=== PATIENT | female | born 1970 | race Caucasian/White ===

== ENCOUNTER 2018-05-16 18:35 | Emergency (ER) | payer SELFPAY ==
[~2018-05-16] VITALS: Ht 162.6 cm; Wt 111.6 kg
[2018-05-16 20:06] LABS: BILIRUBIN,URINE NEGATIVE (NEG); CLARITY,URINE CLEAR; COLOR,URINE YELLOW; NITRITE,URINE NEGATIVE (NEG); PROTEIN,URINE NEGATIVE (NEG-TRACE); UROBILINOGEN,URINE 0.2 mg/dL (0.2 mg/dL)
[2018-05-16 20:13] LABS: BACTERIA,URINE MANY /HPF (0-FEW); RBC,URINE 0 /HPF (0-2); SQUAMOUS EPITHELIAL CELL,UR FEW /LPF; WBC,URINE OCC /HPF (0-4)
--- NOTE | 2018-05-16 20:25 | PHYS DOC ---
Past Medical History Past Medical History: Cancer, Depression, Diabetes-Type II, Fibromyalgia, GERD , Kidney Stone, Uterine Fibroids, Other Additional Past Medical Histor: HYPERLIPIDEMIA,HSV2,RENAL CELL CANCER, SLEEP APNEA, CRONIC FATGUE, Additional Past Surgical Histo: PARTIAL KEDNEY REMOVAL.RIGHT LEG BIOPSY, BILATERAL SHOULDER.KIDNEY STONE Alcohol Use: None Drug Use: None Adult General Chief Complaint Chief Complaint: ABDOMINAL PAIN HPI HPI 48 year old female presents to ER with complaints of right lower abdominal pain since Tuesday area patient reports she was seen at [facility] today and was instructed to come to ER for further evaluation for abd CT. Pt reports she has had intermittent nausea denying vomiting episodes. She denies fever/chills, urinary sxs, or bloody stools. She reports she has had decreased appetite over past couple of days; however was able to eat chicken sandwich today. She reports she had been on progesterone type control up until 02/08/18 and since has stopped taking. She reports having 1 menstr. cycle during that month. She denies any vaginal discharge or abnorm. vag. bleeding. She denies pelvic pressure/pain. Review of Systems Review of Systems Constitutional: Denies fever or chills [] Eyes: Denies change in visual acuity, redness, or eye pain [] HENT: Denies nasal congestion or sore throat [] Respiratory: Denies cough or shortness of breath [] Cardiovascular: Denies CP/palpitations GI: Denies vomiting. Reports rt lower abd pain with intermittent nausea : Denies dysuria or hematuria [] Musculoskeletal: Denies back pain or joint pain [] Integument: Denies swelling, rash or skin lesions [] Neurologic: Denies headache, focal weakness or sensory changes [] All other systems were reviewed and found to be within normal limits, except as documented in this note. Current Medications Current Medications Current Medications Medications (Trade) Dose Ordered Sig/William Start Time Stop Time Status Last Admin Dose Admin Fentanyl Citrate (Fentanyl 2ml Vial) 25 mcg 1X ONCE 05/16/18 20:15 05/16/18 20:19 DC 05/16/18 20:57 25 MCG Iohexol (Omnipaque 300 Mg/ml) 60 ml 1X ONCE 05/16/18 21:30 05/16/18 21:31 DC 05/16/18 21:35 60 ML Ketorolac Tromethamine (Toradol 15mg Vial) 15 mg 1X ONCE 05/16/18 23:00 05/16/18 23:01 Sodium Chloride 1,000 ml @ 1,000 mls/hr 1X ONCE 05/16/18 20:15 05/16/18 21:14 DC 05/16/18 20:58 1,000 MLS/HR Allergies Allergies Allergies Coded Allergies Type Severity Reaction Last Updated Verified Penicillins Allergy Unknown 05/16/18 Yes ibuprofen Allergy Unknown 05/16/18 Yes Physical Exam Physical Exam Constitutional: Well developed, well nourished, no acute distress, non-toxic appearance. [] HENT: Normocephalic, atraumatic, bilateral ears normal, mucous membranes pink/ moist, no oral exudates, nose normal. [] Eyes: PERRLA, conjunctiva normal, no discharge. [] Neck: Normal range of motion, no tenderness, supple Cardiovascular:Heart rate regular rhythm, no murmur [] Lungs & Thorax: Bilateral breath sounds clear to auscultation. Resp. equal/ nonlabored Abdomen: Bowel sounds normal, soft, diffuse tenderness in rt side to rt lower abd- no distention/rebound tenderness, no masses, no pulsatile masses. [] Skin: Warm, dry, no erythema, no rash. [] Back: No tenderness, no CVA tenderness. [] Extremities: No tenderness, no cyanosis, no clubbing, ROM intact, no edema. [] Neurologic: Alert and oriented X 3, normal motor function, normal sensory function, no focal deficits noted. [] Psychologic: Affect normal, judgement normal, mood normal. [] Current Patient Data Vital Signs Vital Signs Date Time Temp Pulse Resp B/P (MAP) Pulse Ox O2 Delivery O2 Flow Rate FiO2 05/16/18 21:12 69 149/78 (101) 100 Room Air 05/16/18 20:57 16 05/16/18 19:13 97.7 97.7 Lab Values Laboratory Tests Test 05/16/18 19:43 05/16/18 19:56 05/16/18 20:44 Urine Collection Type Void Urine Color Yellow Urine Clarity Clear Urine pH 5.0 Urine Specific [place] 1.025 Urine Protein Negative mg/dL (NEG-TRACE) Urine Glucose (UA) Negative mg/dL (NEG) Urine Ketones (Stick) Negative mg/dL (NEG) Urine Blood Negative (NEG) Urine Nitrite Negative (NEG) Urine Bilirubin Negative (NEG) Urine Urobilinogen Dipstick 0.2 mg/dL (0.2 mg/dL) Urine Leukocyte Esterase Negative (NEG) Urine RBC 0 /HPF (0-2) Urine WBC Occ /HPF (0-4) Urine Squamous Epithelial Cells Few /LPF Urine Bacteria Many /HPF (0-FEW) Urine Mucus Marked /LPF POC Urine HCG, Qualitative Hcg negative (Negative) White Blood Count 13.8 x10^3/uL (4.0-11.0) H Red Blood Count 4.19 x10^6/uL (3.50-5.40) Hemoglobin 12.6 g/dL (12.0-15.5) Hematocrit 37.5 % (36.0-47.0) Mean Corpuscular Volume 90 fL (79-100) Mean Corpuscular Hemoglobin 30 pg (25-35) Mean Corpuscular Hemoglobin Concent 34 g/dL (31-37) Red Cell Distribution Width 13.2 % (11.5-14.5) Platelet Count 217 x10^3/uL (140-400) Neutrophils (%) (Auto) 65 % (31-73) Lymphocytes (%) (Auto) 26 % (24-48) Monocytes (%) (Auto) 6 % (0-9) Eosinophils (%) (Auto) 3 % (0-3) Basophils (%) (Auto) 1 % (0-3) Neutrophils # (Auto) 8.9 x10^3uL (1.8-7.7) H Lymphocytes # (Auto) 3.6 x10^3/uL (1.0-4.8) Monocytes # (Auto) 0.8 x10^3/uL (0.0-1.1) Eosinophils # (Auto) 0.4 x10^3/uL (0.0-0.7) Basophils # (Auto) 0.1 x10^3/uL (0.0-0.2) Sodium Level 141 mmol/L (136-145) Potassium Level 3.7 mmol/L (3.5-5.1) Chloride Level 102 mmol/L (98-107) Carbon Dioxide Level 28 mmol/L (21-32) Anion Gap 11 (6-14) Blood Urea Nitrogen 23 mg/dL (7-20) H Creatinine 1.2 mg/dL (0.6-1.0) H Estimated GFR (Cockcroft-Gault) 48.4 BUN/Creatinine Ratio 19 (6-20) Glucose Level 93 mg/dL (70-99) Calcium Level 9.3 mg/dL (8.5-10.1) Magnesium Level 1.9 mg/dL (1.8-2.4) Total Bilirubin 0.4 mg/dL (0.2-1.0) Aspartate Amino Transferase (AST) 21 U/L (15-37) Alanine Aminotransferase (ALT) 24 U/L (14-59) Alkaline Phosphatase 124 U/L (46-116) H Total Protein 7.5 g/dL (6.4-8.2) Albumin 3.4 g/dL (3.4-5.0) Albumin/Globulin Ratio 0.8 (1.0-1.7) L Lipase 125 U/L (73-393) Laboratory Tests 05/16/18 20:44 Laboratory Tests 05/16/18 20:44 EKG EKG [] Radiology/Procedures Radiology/Procedures [] Course & Med Decision Making Course & Med Decision Making Pertinent Labs and Imaging studies reviewed. (See chart for details) 2240: Discussed test results with pt and family at bedside. Pt reports having slight improvement in pain following IV fentanyl. She remains nontoxic in appearance. Discussed admission for further care/pain control and pt is preferring home discharge. Dragon Disclaimer Dragon Disclaimer This electronic medical record was generated, in whole or in part, using a voice recognition dictation system. Departure Departure Impression: Primary Impression: Kidney stone on left side Additional Impression: Abdominal pain Disposition: 01 HOME, SELF-CARE Condition: STABLE Referrals: NO PCP (PCP) HILL SEE MD urology Patient Instructions: Abdominal Pain, Kidney Stones Additional Instructions: You can take your prescribed Tramadol as directed and if pain becomes worse you are being provided prescription for Vicoprofen- avoid taking additional NSAids if taking this. You need to follow-up with urology- if symptoms worsen return to Emergency Department for re-evaluation. Scripts Hydrocodone/Ibuprofen (HYDROCODONE-IBUPROFEN 7.5-200 ) 1 Each Tablet 1 TAB PO PRN Q6HRS PRN for PAIN, #8 TAB 0 Refills Prov: TRESA HURD ENGRAVER COPPERPLATE 05/16/18 Tamsulosin Hcl (FLOMAX) 0.4 Mg Cap.er.24h 0.4 MG PO DAILY, #7 TAB 0 Refills Prov: TRESA HURD APRN 05/16/18 Problem Qualifiers TRESA HURD APRN May 16, 2018 20:25
[2018-05-16 20:55] LABS: BASO # 0.1 x10^3/uL (0.0-0.2); BASO % 1 % (0-3); EOS # 0.4 x10^3/uL (0.0-0.7); EOS % 3 % (0-3); HEMATOCRIT 37.5 % (36.0-47.0); HEMOGLOBIN 12.6 g/dL (12.0-15.5); LYMPH # 3.6 x10^3/uL (1.0-4.8); LYMPH % 26 % (24-48); MEAN CORPUSCULAR HEMOGLOBIN 30 pg (25-35); MEAN CORPUSCULAR HGB CONC 34 g/dL (31-37); MEAN CORPUSCULAR VOLUME 90 fL (79-100); MONO # 0.8 x10^3/uL (0.0-1.1); MONO % 6 % (0-9); NEUT # 8.9 x10^3uL (1.8-7.7); NEUT % 65 % (31-73); PLATELET COUNT 217 x10^3/uL (140-400); RED BLOOD COUNT 4.19 x10^6/uL (3.50-5.40); RED CELL DISTRIBUTION WIDTH 13.2 % (11.5-14.5); WHITE BLOOD COUNT 13.8 x10^3/uL (4.0-11.0)
[2018-05-16] MEDS: fentaNYL PF VIAL 100 MCG/2 ML VIAL IV ONE (20:57)
[2018-05-16] MEDS: IV NORMAL SALINE 1000ML BAG 1,000 ML IV ONE (20:58)
[2018-05-16 21:04] LABS: CALCIUM 9.3 mg/dL (8.5-10.1); CREATININE 1.2 mg/dL (0.6-1.0); GFR 48.4; POTASSIUM 3.7 mmol/L (3.5-5.1)
[2018-05-16 21:10] LABS: ALBUMIN 3.4 g/dL (3.4-5.0); ALBUMIN/GLOBULIN RATIO 0.8 (1.0-1.7); MAGNESIUM 1.9 mg/dL (1.8-2.4); TOTAL BILIRUBIN 0.4 mg/dL (0.2-1.0); TOTAL PROTEIN 7.5 g/dL (6.4-8.2)
[2018-05-16] MEDS: IOHEXOL 300 MG/ML 100ML VIAL. IV ONE (21:35)
--- NOTE | 2018-05-16 22:04 | RAD ---
PQRS Compliance statement: One or more of the following individualized dose reduction techniques were utilized for this examination: 1. Automated exposure control. 2. Adjustment of the mA and/or kV according to patient size. 3. Use of iterative reconstruction technique. Indication:RLQ pain TECHNIQUE: CT abdomen and pelvis with IV contrast with multiplanar reformats. COMPARISON: None FINDINGS: Heart is normal in size. No pericardial or pleural effusion. Clear lung bases. Liver, spleen, gallbladder, pancreas, adrenals and right kidney are within normal limits. 6 cm obstructing stone is seen in the proximal left ureter causing mild to moderate hydronephrosis and diffuse left renal edema. No free pelvic fluid or ascites. No enlarged retroperitoneal or pelvic adenopathy. No bowel obstruction. Normal appendix. Small omental fat-containing medical hernia. Urinary bladder within normal limits. Anteverted uterus. No suspicious bony lesion. IMPRESSION: Obstructing 6 mm stone in the left proximal ureter causing mild to moderate left hydronephrosis. Electronically signed by: Andrey Rodrigues DO (05/16/2018 10:01 PM) [facility]
[2018-05-16] MEDS ORDERED: TAMS0.4C97 PO (22:51)
[2018-05-16] MEDS ORDERED: HYDR-79 PO (22:53)
[2018-05-16 23:00] VITALS: BP 169/78
[2018-05-16] MEDS: KETOROLAC 15 MG/ML VIAL. IV ONE (23:05)
== END 2018-05-16 23:40 | disposition home or self-care (01) ==
LOC: ER 18:35
DX: N20.0 Calculus of kidney (principal); F32.9 Major depressive disorder, single episode, unspecified; E11.9 Type 2 diabetes mellitus without complications; K21.9 Gastro-esophageal reflux disease without esophagitis; E78.5 Hyperlipidemia, unspecified; Z88.0 Allergy status to penicillin; Z88.6 Allergy status to analgesic agent
CPT/HCPCS: 36415; 74177; 80053; 81001; 81025; 83690; 83735; 85025; 87086; 96374; 96375; 99285; J1885; J3010; J7030; Q9967; 96361

== ENCOUNTER → 2018-10-05 | Outpatient (CLI) | payer OTHER ==
[~2018-10-05] MED LIST: HYDROCODONE-IB1 EAC3 PO; TAMS0.4C97 PO
--- NOTE | 2018-10-05 13:58 | RAD ---
Ultrasound-guided right breast biopsy, postbiopsy right breast mammogram for clip localization purposes 10/05/2018 Clinical indication: Right breast mass. Comparison: Outside mammogram and ultrasound 09/06/2018 Ultrasound-guided right breast biopsy: Findings/technique: Procedure was discussed with the patient including benefits and risks included but were not limited to bleeding, infection and damage to adjacent structures. Patient wished to proceed and signed written informed consent. Patient was placed supine on the imaging table. Preprocedural imaging demonstrated an irregular hypoechoic shadowing mass at the 10:00 position. The overlying skin was marked, prepped and draped in the usual sterile fashion. A small amount of 1% lidocaine was used for local anesthesia. Under direct ultrasound guidance, a 14-gauge biopsy needle was advanced to the mass and 4 core biopsy samples were obtained and placed into formalin. The samples were sent to the pathology department for analysis. All instrumentation was removed removed. Subsequently an S-type biopsy marker introducer needle was advanced to the site of biopsy and applied with visualization on ultrasound. Again, all his mentation was removed. Patient tolerated the procedure well and went to the mammography suite for postbiopsy clip verification. Right breast mammogram: Full field digital 2-D CC and MLO views of the right breast were obtained. There is an S type biopsy marker well positioned and approximately 7 mm medial to the central aspect of the mass by mammogram. Impression: 1. Technically successful ultrasound-guided core biopsy of 10:00 position right breast mass. Pathology pending. 2. Post biopsy marker is well-positioned and approximately 7 mm medial to the central aspect of the mass on mammogram.
--- NOTE | 2018-10-10 15:09 | PATHOLOGY ---
[facility] Accession Number: [id number] . 01 Material submitted: . RT BREAST . 01 Clinical history: . Right breast mass . 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 SEE COMMENT. [facility]/10/10/2018 . 02 Comment: Sections of the right breast mass needle biopsy show foci of intermediate grade ductal carcinoma in situ of cribriform type. There are a few foci suspicious for invasive ductal carcinoma. Immunoperoxidase stains for myoepithelial cells are obtained and yield the following results: . P63 (A1): Absence of myoepithelial cells in focus suspicious for invasive ductal carcinoma. Smooth muscle myosin heavy chain (A1): Absence of myoepithelial cells in focus suspicious for invasive ductal carcinoma. P63 (A2): Absence of myoepithelial cells in foci suspicious for invasive ductal carcinoma. Smooth muscle myosin heavy chain (A2): Absence of myoepithelial cells in foci suspicious for invasive ductal carcinoma. . The morphologic and immunophenotypic findings are supportive of the diagnosis of intermediate grade ductal carcinoma in situ of cribriform type and focally invasive ductal carcinoma. The foci of invasive carcinoma measure up to a little over 1 mm in greatest dimension. The invasive carcinoma shows little tubule formation, moderate nuclear pleomorphism, and little mitotic activity. There is no lymphovascular tumor invasion. There are no tumor associated calcifications. . The case is also examined by Dr. Putnam, who concurs with the diagnosis. . An attempt will be made to obtain breast prognostic studies, although there is a limited amount of invasive carcinoma remaining in the blocks. These results will be reported separately. . (JPM:pit 10/10/2018) . Special stains performed: Immunoperoxidase for p63 on A1 and A2 and smooth muscle myosin heavy chain on A1 and A2. . 02 Electronically signed: . Lance Jo MD, Pathologist NPI- [id number] . 01 Gross description: . The specimen is received in formalin, labeled "Kylah Sharpe, right breast". Received are multiple needle cores of fibrofatty tissue measuring 1.5 x 1.0 x 0.1 cm in aggregate dimensions. The specimen is submitted entirely in cassettes A1 through A3. The cold ischemic time is 1 minute. The total formalin fixation time is 29 hours and 23 minutes. (CAA; 10/06/2018) QAC/QAC . 02 Pathologist provided ICD-10: C50.911, D05.11 . 02 CPT . 889068, F21998, A46090 Specimen Comment: A courtesy copy of this report has been sent to Specimen Comment: [phone], . Specimen Comment: Report sent to / DR CHENEY Specimen Comment: A duplicate report has been generated due to demographic updates. Performed at: 01 [facility] [address] [facility] [address], [place] [id number] MD Bill Jimenez MD Phone: [phone] Performed at: 02 [facility] [address] [place], [place] [id number] MD Lance Jo MD Phone: [phone]
== END | disposition home or self-care (01) ==
LOC: US 12:27
PROVIDERS: ATTEND Surgery
DX: C50.411 Malignant neoplasm of upper-outer quadrant of right female breast (principal); E11.9 Type 2 diabetes mellitus without complications; Z88.0 Allergy status to penicillin; Z88.6 Allergy status to analgesic agent; Z79.84 Long term (current) use of oral hypoglycemic drugs; Z85.528 Personal history of other malignant neoplasm of kidney
CPT/HCPCS: 19083; 77065; 88305; 88341; 88342; C1713; 76942

== ENCOUNTER 2018-11-20 08:21 | Inpatient (IN) | payer OTHER ==
[2018-11-20] VITALS (8 sets, daily range): BP systolic 113–142; BP diastolic 64–89
[~2018-11-20] VITALS: Ht 162.6 cm; Wt 114.9 kg
[~2018-11-20 08:21] MED LIST changes: +BUPIVAC MPF-EPI 0.5%-1:200000 30 ML VIAL. ONE; +ESTROGENS, CONJ VAGINAL CREAM 30GM TUBE. ONE; +IV RINGERS,LACTATED 1000ML 1,000 ML IV SCH; +LIDOCAINE 1% PF 2 ML VIAL. ID PRN; +METHYLENE BLUE 1% 10 ML VIAL. ONE; +MORPHINE SULFATE 2 MG/ML VIAL. IV PRN; +ONDANSETRON PF 4 MG/2 ML VIAL. IV PRN; +PROCHLORPERAZINE 10 MG/2 ML VIAL. IV PRN; +fentaNYL PF VIAL 100 MCG/2 ML VIAL IV PRN
[2018-11-20] MEDS ORDERED: TRAM50TA PO (09:01)
[2018-11-20] MEDS ORDERED: VENL150T PO (09:01)
[2018-11-20] MEDS ORDERED: METF500T16 PO (09:01)
[2018-11-20] MEDS ORDERED: CETI10TA16 PO (09:01)
[2018-11-20] MEDS ORDERED: MONT10TA9 PO (09:01)
[2018-11-20] MEDS ORDERED: GLIM1TAB2 PO (09:01)
[2018-11-20] MEDS ORDERED: GABA300C18 PO (09:01)
[2018-11-20] MEDS ORDERED: RANI150T2 PO (09:01)
[2018-11-20] MEDS ORDERED: LOVA40TA2 PO (09:01)
[2018-11-20] MEDS ORDERED: PROP80CA3 PO (09:01)
[2018-11-20 09:17] LABS: U PREG PATIENT NEGATIVE (NEG)
[2018-11-20 09:24] LABS: HEMATOCRIT 38.8 % (36.0-47.0); HEMOGLOBIN 12.5 g/dL (12.0-15.5)
--- NOTE | 2018-11-20 11:02 | RAD ---
Indication: Right breast mass needle localization. Technique: After explaining the risks and benefits of the procedure, informed consent was obtained. The skin was prepped and draped using usual sterile procedure. 1% lidocaine was used for local anesthesia. Under ultrasound guidance Kopan wire was advanced with its tip in the region of mass. In this location and the wire was deployed. The new was drawn and patient was sent for post localization mammogram. Comparison: Mammogram from 10/05/2018. Findings: Re-demonstrated is an area of architectural distortion in the upper outer quadrant of the right breast with associated biopsy marker. The hook and the reinforcement segment wire is in the region of mass/architectural distortion. The needle enters the right breast at 9-10 o'clock position. Impression: Uncomplicated needle localization of right breast upper outer quadrant mass.
--- NOTE | 2018-11-20 11:05 | HP ---
ADMIT DATE: 11/20/2018 REASON FOR ADMISSION: Symptomatic leiomyomata. HISTORY OF PRESENT ILLNESS: This is a 1, para 1, who is referred to me by [facility] for symptomatic leiomyomata. The patient has had abnormal and painful bleeding for greater than a year. The patient had ultrasound and endometrial biopsy done in my office. Ultrasound confirmed the fibroids. Then, endometrial biopsy was negative. The patient has risks, benefits, indications, alternatives, and expectations of surgery versus more conservative modalities, i.e. hormonal therapy, ablation, but secondary to the patient's concurrent breast cancer, the patient will need definitive therapy with hysterectomy with bilateral salpingo-oophorectomy. The patient was told more likely that laparoscopic-assisted vaginal hysterectomy and bilateral salpingo-oophorectomy would be the modality that would be used, but also possible open procedure could be indicated. REVIEW OF SYSTEMS: Per HPI. PAST MEDICAL HISTORY: Diabetes, kidney cancer, genital herpes, gastroesophageal reflux, allergic rhinitis, depression, migraines, obstructive sleep apnea, fibromyalgia. PAST SURGICAL HISTORY: Right kidney cancer, right shoulder surgery in 2010 and 2015, biopsy from calf, external sphincter muscle surgery in 1997, delivery in 1996. SOCIAL HISTORY: Does not smoke, drink or use any illicit drugs. FAMILY HISTORY: Positive for diabetes in brother and sister, and she has a healthy daughter. Mother had vaginal cancer. Sister had thyroid cancer. ALLERGIES: PENICILLIN, ITCHING. ACETAMINOPHEN, BURNING SENSATION. HOSPITALIZATIONS: For the right kidney cancer and childbirth. PHYSICAL EXAMINATION: VITAL SIGNS: Height 63 inches, weight is 257.6, temperature is 96.2, pulse 72, respirations 20, blood pressure 143/79, BMI was 45.63, O2 saturation was 99% on room air. HEENT: Head is normocephalic, atraumatic. Pupils equal, round, react to light. LUNGS: Clear to auscultation. BREASTS: No dominant masses appreciated. Dr. Anderson is working up abnormal lesion on the right breast. ABDOMEN: Obese. PELVIC: External genitalia appear normal. Cervix appears normal. Uterus 9-10 week size, irregular. Ultrasound consistent with fibroids. RECTAL: Deferred. EXTREMITIES: No clubbing, cyanosis or edema. IMPRESSION: Symptomatic leiomyomata with a history of breast cancer. Dr. Anderson will do the procedure prior to mine on her breast. PLAN: Laparoscopic assisted vaginal hysterectomy with bilateral salpingo-oophorectomy, possible open procedure. ALLAN YANEZ MD DR: FIDENCIO/lori JOB#: [id number] / [id number]
--- NOTE | 2018-11-20 11:05 | RAD ---
Indication: Ultrasound-guided needle localization for right breast mass. Technique: After explaining the risks and benefits of the procedure, informed consent was obtained. The skin was prepped and draped using usual sterile procedure. 1% lidocaine was used for local anesthesia. Under ultrasound guidance Kopan wire was advanced with its tip in the region of mass. In this location and the wire was deployed. The new was drawn and patient was sent for post localization mammogram. Comparison: Previous ultrasound from 10/05/2018. Findings: The hook of the wire is passed the mass with reinforcing segment lying within the mass. The needle enters the skin at 9-10 o'clock position in the right breast. Impression: Uncomplicated wire localization of right upper outer quadrant breast mass.
[2018-11-20] MEDS ORDERED: ONDANSETRON PF 4 MG/2 ML VIAL. ONE (11:10)
[2018-11-20] MEDS ORDERED: PROPOFOL 20 ML IV ONE (11:10)
[2018-11-20] MEDS ORDERED: LIDOCAINE 1% PF 5 ML VIAL. ONE (11:10)
[2018-11-20] MEDS ORDERED: MIDAZOLAM HCL/PF 2 MG/2 ML VIAL. ONE (11:10)
[2018-11-20] MEDS ORDERED: FAMOTIDINE 20 MG/2 ML VIAL ONE (11:10)
[2018-11-20] MEDS ORDERED: fentaNYL PF VIAL 100 MCG/2 ML VIAL ONE ×3 (11:10→16:07)
[2018-11-20] MEDS ORDERED: ROCURONIUM 50 MG/5 ML VIAL. ONE ×2 (11:11→15:12)
[2018-11-20] MEDS ORDERED: BUPIVAC MPF-EPI 0.5%-1:200000 30 ML VIAL. ONE (12:02)
[2018-11-20] MEDS ORDERED: LIDOCAINE WITH 8.4% SOD BICARB 3 ML DISP.SYRIN. INJ ONE (12:15)
[2018-11-20] MEDS ORDERED: ISOSULFAN BLUE 50 MG/5 ML VIAL. SQ ONE (12:21)
--- NOTE | 2018-11-20 14:39 | RAD ---
Indication: Post surgical biopsy specimen check. Technique: Single cc view of the surgical specimen with grade overlying. Comparison: The localization mammogram from the same day. Findings: The post biopsy marker and localization wire both are seen on the same specimen image. The position of the biopsy clip is at coordinates 5-B on the grid. Impression: As above.
[2018-11-20] MEDS ORDERED: ONDANSETRON PF 4 MG/2 ML VIAL. IV PRN ×3 (15:15→17:15)
[2018-11-20] MEDS ORDERED: MAG HYDROX/ALUMINUM HYD/SIMETH 30 ML ORAL.SUSP PO PRN ×2 (15:15→17:15)
[2018-11-20] MEDS ORDERED: DEXTROSE 50% 25 GM / 50ML DISP.SYRIN. IV PRN ×2 (15:15→17:15)
[2018-11-20] MEDS ORDERED: CALCIUM CARBONATE 500 MG TAB.CHEW PO PRN ×2 (15:15→17:15)
[2018-11-20] MEDS ORDERED: NALOXONE 0.4 MG/ML VIAL. IV PRN ×2 (15:15→17:15)
[2018-11-20] MEDS ORDERED: 0.9 % SODIUM CHLORIDE 10 ML DISP.SYRIN. IV PRN ×3 (15:15→17:15)
[2018-11-20] MEDS ORDERED: ZOLPIDEM 5 MG TABLET. PO PRN ×2 (15:15→17:15)
[2018-11-20] MEDS ORDERED: diphenhydrAMINE 50 MG/ML VIAL IV PRN ×2 (15:15→17:15)
[2018-11-20] MEDS ORDERED: diphenhydrAMINE HCL 25 MG CAPSULE PO PRN ×2 (15:15→17:15)
[2018-11-20] MEDS ORDERED: HYDROmorphone 2 MG/ML VIAL IV PRN ×4 (15:15→17:45)
[2018-11-20] MEDS ORDERED: NEOSTIGMINE 10 MG/10 ML VIAL. ONE (15:56)
[2018-11-20] MEDS ORDERED: hydrALAZINE 20 MG/ML VIAL. ONE (16:14)
[2018-11-20] MEDS ORDERED: METOPROLOL TARTRATE 5 MG/5 ML VIAL. IVP ONE (16:27)
[2018-11-20] MEDS ORDERED: GLYCOPYRROLATE 1 MG/5 ML VIAL. ONE (17:07)
--- NOTE | 2018-11-20 17:08 | PDOC ---
BRIEF OPERATIVE NOTE Date: Nov 20, 2018 Pre-Op Diagnosis symptomatic leiomyomata AUB Post-Op Diagnosis Same Procedure Performed LAVH converted to supercervical MIRA BSO Surgeon Prateek Pham Anesthesia Type: General Blood Loss 300cc Specimens Obtained uterus tubes and ovaries Complications none ALLAN YANEZ MD Nov 20, 2018 17:08
[2018-11-20] MEDS ORDERED: KETOROLAC 30 MG/ML INJ FOR OR. INJ ONE (17:12)
[2018-11-20] MEDS ORDERED: HYDROmorphone 12mg/30ml PCA 30 ML IV PRN (17:15)
[2018-11-20] MEDS ORDERED: DESFLURANE > 120 MINUTES IH ONE (17:15)
[2018-11-20] MEDS ORDERED: SIMETHICONE 80 MG TAB.CHEW PO PRN (17:15)
[2018-11-20] MEDS ORDERED: HYDROmorphone 2 MG/ML VIAL ONE ×2 (17:18→18:20)
[2018-11-20] MEDS: HYDROmorphone 2 MG/ML VIAL IV PRN ×7 (17:21→19:34)
--- NOTE | 2018-11-20 18:06 | OP ---
DATE OF SURGERY: 11/20/2018 PREOPERATIVE DIAGNOSES: Symptomatic leiomyomata, abnormal uterine bleeding. POSTOPERATIVE DIAGNOSES: Symptomatic leiomyomata, abnormal uterine bleeding. PROCEDURE: Laparoscopic assisted vaginal hysterectomy, converted to abdominal supracervical hysterectomy with BSO. SURGEON: Heriberto Chandra M.D. SOFTWARE INSTALLER: Dr. Benny Pham. ANESTHESIA: General. ESTIMATED BLOOD LOSS: 300 mL. FLUIDS: Crystalloid. SPECIMENS: Uterus, supracervical, bilateral tubes and oviducts. COMPLICATIONS: None. CONDITION: Stable. DESCRIPTION OF PROCEDURE: Risks, benefits, indications, alternatives discussed in detail with the patient. The patient was brought to the OR theater, placed in the supine position for Dr. Anderson's surgery. After he was done, she was repositioned in Juvencio stirrups in the usual manner. After assuring adequate anesthesia, the patient was prepped and draped in usual sterile manner. Uterine manipulator was placed transvaginally. Attention was then turned to the anterior abdominal wall. The patient had a considerably high BMI and had to use the long trocar to try to gain access. After three times trying to gain access twice with the short trocar, once with long trocar, it was abandoned and abdominal approach was then taken. This incision was then reapproximated with a 4-0 Monocryl in interrupted fashion. The uterine manipulator was removed. A low transverse Pfannenstiel incision was made sharply with a scalpel. This was carried down through the skin and subcutaneous tissue with a scalpel and Bovie cautery. Rectus fascia was nicked in midline and extended laterally in each direction with Marrero scissors. Areas of bleeding were controlled with Bovie cautery. Upper edge of rectus fascia was both bluntly and sharply with gloved hand and Marrero scissors. The same procedure was carried out at lower edge of rectus fascia. The parietal peritoneum was entered carefully with hemostats and Metzenbaum scissors. The small bowel was ran from the cecum and as far as ligated which was probably greater than 150 cm. This is also difficult because of the patient's obesity. The area where the trocar sleeves were tried to insert was pristine, no evidence by palpation of the Veress needle or the trocar sleeves violating the rectus fascia up at the umbilicus. Jakob retractor was attempted to be placed secondary to the patient's obesity; however, this became problematic. O'Gaudencio-O'Hawkins retractor was placed. The patient was placed in Trendelenburg. The intestines were packed cephalad with a laparotomy sponge, and the uterus was grasped with a single tooth tenaculum. First, the right cornu infundibulopelvic ligament, round ligament, broad ligament were taken down with the EnSeal. Same procedure was carried on the opposite side. Bladder flap was created. The patient had a considerable long cervix secondary to her deep pelvis. It was somewhat troublesome. Dr. Pham was summoned to help finish the procedure. Cervix was taken down to the Mackenrodt ligament, and then, the uterus was transected from those attachments. The cervical canal was fulgurated with Bovie cautery. All pedicles were inspected and noted to be hemostatic. Areas of bleeding was controlled with the EnSeal. The lower uterine segment on the cervix was saturated with FloSeal. Prior to that, pelvis irrigated copiously with warm normal saline and all sponges were removed and accounted for. The ureters were inspected bilaterally and noted to have peristalsis. All sponges were removed. The O'Gaudencio-O'Hawkins retractor was removed. The intestines were allowed to fall back within the pelvic location. The rectus fascia was reapproximated with 0 PDS x 2 in a running manner starting at the corners and meeting in the middle. Subcutaneous tissue was irrigated copiously with warm normal saline. Ervin fascia was reapproximated with 2-0 plain. Skin was reapproximated with Insorb jo-ann. Sponge, needle and instrument counts were correct x 3. HERIBERTO CHANDRA MD DR: FIDENCIO/lori JOB#: [id number] / [id number]
[2018-11-20] MEDS ORDERED: INSULIN LISPRO 100 UNIT/ML 3ML VIAL. SQ ONE (19:00)
[2018-11-20] MEDS: IV 1/2 NORMAL SALINE 1,000 ML IV SCH (20:07)
[2018-11-20] MEDS ORDERED: DOCUSATE SODIUM 100 MG CAPSULE. PO SCH (21:00)
[2018-11-20] MEDS ORDERED: SENNOSIDES/DOCUSATE 8.6/50MG TABLET. PO SCH (21:00)
[2018-11-20] MEDS: ceFAZolin SODIUM 1 GM in IV DEXTROSE 5% 50 ML IV SCH (21:34)
[2018-11-20] MEDS: DOCUSATE SODIUM 100 MG CAPSULE. PO SCH (22:19)
[2018-11-20] MEDS: SENNOSIDES/DOCUSATE 8.6/50MG TABLET. PO SCH (22:19)
[2018-11-20] MEDS: MONTELUKAST SODIUM 10 MG TABLET. PO SCH (22:19)
[2018-11-20] MEDS: GABAPENTIN 300 MG CAPSULE. PO SCH (22:19)
[2018-11-20] MEDS: ATORVASTATIN CALCIUM 10 MG TABLET. PO SCH (22:19)
[2018-11-20] MEDS: VENLAFAXINE 50 MG TABLET. PO SCH (22:20)
[2018-11-21] VITALS (14 sets, daily range): BP systolic 120–174; BP diastolic 65–93
[2018-11-21] MEDS: IV 1/2 NORMAL SALINE 1,000 ML IV SCH (05:20)
[2018-11-21] MEDS: ceFAZolin SODIUM 1 GM in IV DEXTROSE 5% 50 ML IV SCH ×2 (05:24→08:54)
[2018-11-21 05:39] LABS: BASO % 0 % (0-3); EOS % 0 % (0-3); HEMATOCRIT 32.1 % (36.0-47.0); HEMOGLOBIN 10.7 g/dL (12.0-15.5); LYMPH # 1.3 x10^3/uL (1.0-4.8); LYMPH % 8 % (24-48); MEAN CORPUSCULAR HEMOGLOBIN 29 pg (25-35); MEAN CORPUSCULAR HGB CONC 33 g/dL (31-37); MEAN CORPUSCULAR VOLUME 88 fL (79-100); MONO # 1.1 x10^3/uL (0.0-1.1); MONO % 7 % (0-9); NEUT # 13.9 x10^3uL (1.8-7.7); NEUT % 85 % (31-73); PLATELET COUNT 239 x10^3/uL (140-400); RED BLOOD COUNT 3.66 x10^6/uL (3.50-5.40); WHITE BLOOD COUNT 16.4 x10^3/uL (4.0-11.0)
[2018-11-21 06:56] LABS: % BANDS 11 % (0-9); % LYMPHS 5 % (24-48); % MONOS 4 % (0-10); % SEGS 80 % (35-66)
[2018-11-21 06:58] LABS: PLT ESTIMATE ADEQUATE (ADEQUATE)
[2018-11-21 07:07] LABS: CALCIUM 8.6 mg/dL (8.5-10.1); CREATININE 0.7 mg/dL (0.6-1.0); GFR 90.1
--- NOTE | 2018-11-21 07:32 | PDOC4 ---
Operative Note Operative Note Operative Note: Preoperative Diagnosis: Right breast cancer Postoperative Diagnosis: Same Procedure: Right lumpectomy with wire localization, right axillary sentinel lymph node biopsy Surgeon: Justin Washcoat Wiper: Pattie GASTON Anesthesia: Gen. EBL: 50 mL Specimen: [place] lymph node hot and blue to pathology, right lumpectomy specimen short stitch superficial long stitch lateral to pathology, additional superior, inferior, medial, lateral, deep margins to pathology Drains: None Complications: None Indication: The patient is a 48 showed female is recently diagnosed with right breast cancer. She appears to be a suitable candidate for breast conservation and is interested. The plan is for a lumpectomy with sentinel lymph node biopsy. The details and risks of surgery were discussed with the patient. The risks include bleeding, infection, scar tissue, pain, anesthetic risk, potential need for additional surgery or procedure pending pathology results. She understands and would like to proceed. Description: The patient was taken initially to radiology where she underwent wire localization of the right breast lump as well as injection of technetium sulfur colloid. She was placed supine on the operating table. Gen. anesthesia was performed. The the right breast and axilla were prepped with ChloraPrep and draped in a standard surgical manner. Five mL of Lymphazurin were injected deep to the nipple areolar complex. Several minutes were allowed to elapse. The wire was exiting laterally between the 9 and 10 o'clock position of the breast. The exit site was fairly close to the axilla and we elected to perform both the lumpectomy and sentinel lymph node biopsy through the same incision. The incision was made in close proximity to the wire in the skin lines of the right breast with a scalpel. Cautery dissection was used initially as we directed our dissection in the axilla. Using the C-Trak probe one area of focal increased uptake was identified. Further dissection in this region showed a blue staining node that was harvested from surrounding tissues. There appeared to be an adjacent lymph node that was removed with this that was not blue stained. The primary sentinel lymph node was fully excised and sent to pathology. Frozen section showed no evidence of metastasis in both of the excised lymph nodes. Further inspection showed no other areas of increased nuclear uptake or blue staining nodes. There were a few soft palpable lymph nodes however no appreciable abnormal adenopathy. We then proceeded with the lumpectomy. The wire was readily identified and delivered into the wound. With cautery dissection the wire was followed toward its termination. At this point the tumor was readily palpable. A generous size lumpectomy was then performed around the tumor. The superficial margin was marked with a short silk stitch in the lateral margin was marked with a long silk stitch. The entire lumpectomy specimen was then fully excised and sent off to radiology. Specimen radiographs did confirm the presence of the clip and tumor. We elected to take additional margins from the lumpectomy cavity. Additional shave margins were removed from the superior, inferior, medial, lateral, deep sections of the lumpectomy cavity. These were all appropriately labeled and sent off to pathology. Hemostasis was readily achieved with cautery. No other abnormalities were noted. The subcutaneous cutaneous tissues approximated with 3-0 Vicryl. The skin was closed with a 4-0 Monocryl suture. A sterile OpSite dressing was then applied. Dr. De León then proceeded with his portion of the surgery, please refer to his dictation for details. MATTIE CHENEY MD Nov 21, 2018 07:32
--- NOTE | 2018-11-21 08:50 | PDOC ---
SURGICAL PROGRESS NOTE Subjective Pt. feeling better with improved pain control. Pt. desires to try liquids today. Vital Signs Vital Signs Date Time Temp Pulse Resp B/P (MAP) Pulse Ox O2 Delivery O2 Flow Rate FiO2 11/21/18 08:00 81 11 140/67 (91) 96 BiPAP/CPAP 3.0 11/21/18 04:01 98.4 98.4 I&O Intake and Output 11/21/18 07:00 Intake Total 4253.2 ml Output Total 925 ml Balance 3328.2 ml Intake Oral 325 ml IV Total 3928.2 ml Output Urine Total 675 ml Estimated Blood Loss 250 ml PATIENT HAS A SILVA: Yes General: Alert, Oriented X3, Cooperative HEENT: Atraumatic Lungs: Clear to auscultation Heart: Regular rate Abdomen: Normal bowel sounds, Soft, No masses, Other (mild to moderate tenderness; Prevena in place.) Psych/Mental Status: Mental status NL Labs Laboratory Tests Test 11/20/18 08:45 11/20/18 09:10 11/20/18 09:24 11/20/18 17:26 Urine Test Negative (NEG) Hemoglobin 12.5 g/dL (12.0-15.5) Hematocrit 38.8 % (36.0-47.0) Mean Corpuscular Hemoglobin Concent 32 g/dL (31-37) Glucose (Fingerstick) 175 mg/dL (70-99) 272 mg/dL (70-99) Test 11/21/18 00:29 11/21/18 05:20 Glucose (Fingerstick) 199 mg/dL (70-99) White Blood Count 16.4 x10^3/uL (4.0-11.0) Red Blood Count 3.66 x10^6/uL (3.50-5.40) Hemoglobin 10.7 g/dL (12.0-15.5) Hematocrit 32.1 % (36.0-47.0) Mean Corpuscular Volume 88 fL (79-100) Mean Corpuscular Hemoglobin 29 pg (25-35) Mean Corpuscular Hemoglobin Concent 33 g/dL (31-37) Red Cell Distribution Width 13.0 % (11.5-14.5) Platelet Count 239 x10^3/uL (140-400) Neutrophils (%) (Auto) 85 % (31-73) Lymphocytes (%) (Auto) 8 % (24-48) Monocytes (%) (Auto) 7 % (0-9) Eosinophils (%) (Auto) 0 % (0-3) Basophils (%) (Auto) 0 % (0-3) Neutrophils # (Auto) 13.9 x10^3uL (1.8-7.7) Lymphocytes # (Auto) 1.3 x10^3/uL (1.0-4.8) Monocytes # (Auto) 1.1 x10^3/uL (0.0-1.1) Eosinophils # (Auto) 0.0 x10^3/uL (0.0-0.7) Basophils # (Auto) 0.0 x10^3/uL (0.0-0.2) Segmented Neutrophils % 80 % (35-66) Band Neutrophils % 11 % (0-9) Lymphocytes % 5 % (24-48) Monocytes % 4 % (0-10) Platelet Estimate Adequate (ADEQUATE) Sodium Level 136 mmol/L (136-145) Potassium Level 4.0 mmol/L (3.5-5.1) Chloride Level 99 mmol/L (98-107) Carbon Dioxide Level 27 mmol/L (21-32) Anion Gap 10 (6-14) Blood Urea Nitrogen 17 mg/dL (7-20) Creatinine 0.7 mg/dL (0.6-1.0) Estimated GFR (Cockcroft-Gault) 90.1 Glucose Level 251 mg/dL (70-99) Calcium Level 8.6 mg/dL (8.5-10.1) Laboratory Tests Test 11/20/18 09:10 11/20/18 09:24 11/20/18 17:26 11/21/18 00:29 Hemoglobin 12.5 g/dL (12.0-15.5) Hematocrit 38.8 % (36.0-47.0) Mean Corpuscular Hemoglobin Concent 32 g/dL (31-37) Glucose (Fingerstick) 175 mg/dL (70-99) 272 mg/dL (70-99) 199 mg/dL (70-99) Test 11/21/18 05:20 White Blood Count 16.4 x10^3/uL (4.0-11.0) Red Blood Count 3.66 x10^6/uL (3.50-5.40) Hemoglobin 10.7 g/dL (12.0-15.5) Hematocrit 32.1 % (36.0-47.0) Mean Corpuscular Volume 88 fL (79-100) Mean Corpuscular Hemoglobin 29 pg (25-35) Mean Corpuscular Hemoglobin Concent 33 g/dL (31-37) Red Cell Distribution Width 13.0 % (11.5-14.5) Platelet Count 239 x10^3/uL (140-400) Neutrophils (%) (Auto) 85 % (31-73) Lymphocytes (%) (Auto) 8 % (24-48) Monocytes (%) (Auto) 7 % (0-9) Eosinophils (%) (Auto) 0 % (0-3) Basophils (%) (Auto) 0 % (0-3) Neutrophils # (Auto) 13.9 x10^3uL (1.8-7.7) Lymphocytes # (Auto) 1.3 x10^3/uL (1.0-4.8) Monocytes # (Auto) 1.1 x10^3/uL (0.0-1.1) Eosinophils # (Auto) 0.0 x10^3/uL (0.0-0.7) Basophils # (Auto) 0.0 x10^3/uL (0.0-0.2) Segmented Neutrophils % 80 % (35-66) Band Neutrophils % 11 % (0-9) Lymphocytes % 5 % (24-48) Monocytes % 4 % (0-10) Platelet Estimate Adequate (ADEQUATE) Sodium Level 136 mmol/L (136-145) Potassium Level 4.0 mmol/L (3.5-5.1) Chloride Level 99 mmol/L (98-107) Carbon Dioxide Level 27 mmol/L (21-32) Anion Gap 10 (6-14) Blood Urea Nitrogen 17 mg/dL (7-20) Creatinine 0.7 mg/dL (0.6-1.0) Estimated GFR (Cockcroft-Gault) 90.1 Glucose Level 251 mg/dL (70-99) Calcium Level 8.6 mg/dL (8.5-10.1) Assessment/Plan A: POD#1 s/p madelyn. mastectomy and Supracervical hysterectomy with BSO P: Continue post op care. Pt. to transfer to 3rd floor. ROSALVA BERGER Jr, MD Nov 21, 2018 08:50
[2018-11-21] MEDS: GABAPENTIN 300 MG CAPSULE. PO SCH ×2 (08:53→21:06)
[2018-11-21] MEDS: SENNOSIDES/DOCUSATE 8.6/50MG TABLET. PO SCH ×2 (08:53→21:06)
[2018-11-21] MEDS: metFORMIN 500 MG TABLET PO SCH ×2 (08:53→17:14)
[2018-11-21] MEDS: DOCUSATE SODIUM 100 MG CAPSULE. PO SCH ×2 (08:53→21:06)
[2018-11-21] MEDS: CETIRIZINE HCL 10 MG TABLET. PO SCH (08:53)
[2018-11-21] MEDS: FAMOTIDINE 20 MG TABLET. PO SCH (08:53)
[2018-11-21] MEDS: GLIMEPIRIDE 2 MG TABLET. PO SCH (08:55)
[2018-11-21] MEDS: PROPRANOLOL ER 60 MG CAP.SA.24H. PO SCH (08:55)
[2018-11-21] MEDS: VENLAFAXINE 50 MG TABLET. PO SCH ×3 (09:45→21:07)
--- NOTE | 2018-11-21 09:53 | NUR ---
Order received from Dr. Pham to transfer patient to 3rd floor. Patient stable. VS WNL, no ectopy on tele. Dialudid [employer] INSPECTOR still active. IVF d/c per order. Patient's boyfriend at bedside. Ate breakfast, tolerated well. Pain tolerable.
--- NOTE | 2018-11-21 10:27 | RAD ---
Indication: Right breast cancer. Patient here for sentinel node injection. TECHNIQUE: After explaining the procedure to the patient the skin around the areola was cleaned and draped in usual sterile way. Equal aliquots of 0.9 mCi of technetium 99M sestamibi be mixed with 0.5 mL of lidocaine was injected in 4 quadrants around the areola. No images are obtained. COMPARISON: None Findings/ impression: Uncomplicated sentinel node injection in the right breast. Electronically signed by: Andrey Rodrigues DO (11/21/2018 10:25 AM) [facility]
--- NOTE | 2018-11-21 11:33 | NUR ---
Patient transferred to 303 via wheelchair. Tolerated ambulation well. Dilaudid HAIRSPRING STAKER taken with patient. All belongings transported by patient's boyfriend. Nothing left in room at time of transfer. Report given to Nasrin JOHNSON on 3S.
[2018-11-21] MEDS: oxyCODONE IR 5 MG TABLET PO PRN ×2 (14:01→19:58)
--- NOTE | 2018-11-21 16:06 | NUR ---
SS following for discharge planning. SS reviewed pt chart. Pt is from home and is currently on room air. No discharge needs noted at this time. SS will continue to follow for pending discharge needs.
[2018-11-21] MEDS: SIMETHICONE 80 MG TAB.CHEW PO PRN (17:15)
[2018-11-21] MEDS: MONTELUKAST SODIUM 10 MG TABLET. PO SCH (21:06)
[2018-11-21] MEDS: ATORVASTATIN CALCIUM 10 MG TABLET. PO SCH (21:06)
[2018-11-22] MEDS: oxyCODONE IR 5 MG TABLET PO PRN ×3 (05:54→17:19)
[2018-11-22 06:17] VITALS: BP 119/67
[2018-11-22] MEDS ORDERED: MAGNESIUM HYDROXIDE 2,400 MG/30 ML ORAL.SUSP. PO PRN (07:45)
[2018-11-22] MEDS: GABAPENTIN 300 MG CAPSULE. PO SCH ×2 (08:22→20:58)
[2018-11-22] MEDS: DOCUSATE SODIUM 100 MG CAPSULE. PO SCH ×2 (08:23→20:57)
[2018-11-22] MEDS: FAMOTIDINE 20 MG TABLET. PO SCH (08:23)
[2018-11-22] MEDS: CETIRIZINE HCL 10 MG TABLET. PO SCH (08:23)
[2018-11-22] MEDS: VENLAFAXINE 50 MG TABLET. PO SCH ×3 (08:24→20:57)
[2018-11-22] MEDS: GLIMEPIRIDE 2 MG TABLET. PO SCH (08:25)
[2018-11-22] MEDS: SENNOSIDES/DOCUSATE 8.6/50MG TABLET. PO SCH ×2 (08:30→20:57)
[2018-11-22] MEDS: metFORMIN 500 MG TABLET PO SCH ×2 (08:32→17:20)
--- NOTE | 2018-11-22 08:55 | PDOC ---
SURGICAL PROGRESS NOTE Subjective Pt. feeling better this am. She has bloating and gas pains. She is tolerating ADA diet. Pain is controlled. Vital Signs Vital Signs Date Time Temp Pulse Resp B/P (MAP) Pulse Ox O2 Delivery O2 Flow Rate FiO2 11/22/18 06:17 98.2 90 18 119/67 (84) 95 Room Air 98.2 11/21/18 08:00 3.0 I&O Intake and Output 11/22/18 07:00 Intake Total 1350 ml Output Total 1720 ml Balance -370 ml Intake Oral 1350 ml Output Urine Total 1720 ml PATIENT HAS A SILVA: No General: Alert, Oriented X3, Cooperative HEENT: Atraumatic Lungs: Clear to auscultation Heart: Regular rate Abdomen: Soft, No masses, Other (distended; no bowel sounds. moderate tenderness.) Psych/Mental Status: Mental status NL Labs Laboratory Tests Test 11/20/18 09:10 11/20/18 09:24 11/20/18 17:26 11/21/18 00:00 Hemoglobin 12.5 g/dL (12.0-15.5) Hematocrit 38.8 % (36.0-47.0) Mean Corpuscular Hemoglobin Concent 32 g/dL (31-37) Glucose (Fingerstick) 175 mg/dL (70-99) 272 mg/dL (70-99) Nasal Screen MRSA (PCR) Negative (Negative) Test 11/21/18 00:29 11/21/18 05:20 11/21/18 16:56 11/22/18 08:14 Glucose (Fingerstick) 199 mg/dL (70-99) 225 mg/dL (70-99) 179 mg/dL (70-99) White Blood Count 16.4 x10^3/uL (4.0-11.0) Red Blood Count 3.66 x10^6/uL (3.50-5.40) Hemoglobin 10.7 g/dL (12.0-15.5) Hematocrit 32.1 % (36.0-47.0) Mean Corpuscular Volume 88 fL (79-100) Mean Corpuscular Hemoglobin 29 pg (25-35) Mean Corpuscular Hemoglobin Concent 33 g/dL (31-37) Red Cell Distribution Width 13.0 % (11.5-14.5) Platelet Count 239 x10^3/uL (140-400) Neutrophils (%) (Auto) 85 % (31-73) Lymphocytes (%) (Auto) 8 % (24-48) Monocytes (%) (Auto) 7 % (0-9) Eosinophils (%) (Auto) 0 % (0-3) Basophils (%) (Auto) 0 % (0-3) Neutrophils # (Auto) 13.9 x10^3uL (1.8-7.7) Lymphocytes # (Auto) 1.3 x10^3/uL (1.0-4.8) Monocytes # (Auto) 1.1 x10^3/uL (0.0-1.1) Eosinophils # (Auto) 0.0 x10^3/uL (0.0-0.7) Basophils # (Auto) 0.0 x10^3/uL (0.0-0.2) Segmented Neutrophils % 80 % (35-66) Band Neutrophils % 11 % (0-9) Lymphocytes % 5 % (24-48) Monocytes % 4 % (0-10) Platelet Estimate Adequate (ADEQUATE) Sodium Level 136 mmol/L (136-145) Potassium Level 4.0 mmol/L (3.5-5.1) Chloride Level 99 mmol/L (98-107) Carbon Dioxide Level 27 mmol/L (21-32) Anion Gap 10 (6-14) Blood Urea Nitrogen 17 mg/dL (7-20) Creatinine 0.7 mg/dL (0.6-1.0) Estimated GFR (Cockcroft-Gault) 90.1 Glucose Level 251 mg/dL (70-99) Calcium Level 8.6 mg/dL (8.5-10.1) Laboratory Tests Test 11/21/18 16:56 11/22/18 08:14 Glucose (Fingerstick) 225 mg/dL (70-99) 179 mg/dL (70-99) Assessment/Plan A: POD#2 s/p Right lumpectomy and Supracervical Hysterectomy with BSO P: Encourage ambulation. Continue post op care. ROSALVA BERGER Jr, MD Nov 22, 2018 08:55
[2018-11-22 11:20] VITALS: BP 125/71
[2018-11-22] MEDS ORDERED: BISACODYL 10 MG SUPP.RECT. PR PRN (11:30)
--- NOTE | 2018-11-22 13:19 | PDOC ---
PROGRESS NOTES Subjective Subjective some gas pains in abdomen Objective Objective Vital Signs Date Time Temp Pulse Resp B/P (MAP) Pulse Ox O2 Delivery O2 Flow Rate FiO2 11/22/18 06:17 98.2 90 18 119/67 (84) 95 Room Air 98.2 11/21/18 08:00 3.0 Intake and Output 11/22/18 07:00 Intake Total 1350 ml Output Total 1720 ml Balance -370 ml Intake Oral 1350 ml Output Urine Total 1720 ml Physical Exam Physical Exam breast dressing clean and dry Assessment Assessment breast cancer Plan Plan of Care stable from my standpoint Comment Review of Relevant I have reviewed the following items ruben (where applicable) has been applied. Labs Laboratory Tests Test 11/20/18 17:26 11/21/18 00:00 11/21/18 00:29 11/21/18 05:20 Glucose (Fingerstick) 272 mg/dL (70-99) 199 mg/dL (70-99) Nasal Screen MRSA (PCR) Negative (Negative) White Blood Count 16.4 x10^3/uL (4.0-11.0) Red Blood Count 3.66 x10^6/uL (3.50-5.40) Hemoglobin 10.7 g/dL (12.0-15.5) Hematocrit 32.1 % (36.0-47.0) Mean Corpuscular Volume 88 fL (79-100) Mean Corpuscular Hemoglobin 29 pg (25-35) Mean Corpuscular Hemoglobin Concent 33 g/dL (31-37) Red Cell Distribution Width 13.0 % (11.5-14.5) Platelet Count 239 x10^3/uL (140-400) Neutrophils (%) (Auto) 85 % (31-73) Lymphocytes (%) (Auto) 8 % (24-48) Monocytes (%) (Auto) 7 % (0-9) Eosinophils (%) (Auto) 0 % (0-3) Basophils (%) (Auto) 0 % (0-3) Neutrophils # (Auto) 13.9 x10^3uL (1.8-7.7) Lymphocytes # (Auto) 1.3 x10^3/uL (1.0-4.8) Monocytes # (Auto) 1.1 x10^3/uL (0.0-1.1) Eosinophils # (Auto) 0.0 x10^3/uL (0.0-0.7) Basophils # (Auto) 0.0 x10^3/uL (0.0-0.2) Segmented Neutrophils % 80 % (35-66) Band Neutrophils % 11 % (0-9) Lymphocytes % 5 % (24-48) Monocytes % 4 % (0-10) Platelet Estimate Adequate (ADEQUATE) Sodium Level 136 mmol/L (136-145) Potassium Level 4.0 mmol/L (3.5-5.1) Chloride Level 99 mmol/L (98-107) Carbon Dioxide Level 27 mmol/L (21-32) Anion Gap 10 (6-14) Blood Urea Nitrogen 17 mg/dL (7-20) Creatinine 0.7 mg/dL (0.6-1.0) Estimated GFR (Cockcroft-Gault) 90.1 Glucose Level 251 mg/dL (70-99) Calcium Level 8.6 mg/dL (8.5-10.1) Test 11/21/18 16:56 11/22/18 08:14 Glucose (Fingerstick) 225 mg/dL (70-99) 179 mg/dL (70-99) Laboratory Tests Test 11/21/18 16:56 11/22/18 08:14 Glucose (Fingerstick) 225 mg/dL (70-99) 179 mg/dL (70-99) Medications Current Medications Ondansetron HCl (Zofran) 4 mg PRN Q6HRS PRN IV NAUSEA/VOMITING; Start 11/20/18 at 07:00; Stop 11/21/18 at 06:59; Status DC Fentanyl Citrate (Fentanyl 2ml Vial) 25 mcg PRN Q5MIN PRN IV MILD PAIN; Start 11/20/18 at 07:00; Stop 11/21/18 at 06:59; Status DC Fentanyl Citrate (Fentanyl 2ml Vial) 50 mcg PRN Q5MIN PRN IV MODERATE TO SEVERE PAIN; Start 11/20/18 at 07:00; Stop 11/21/18 at 06:59; Status DC Morphine Sulfate (Morphine Sulfate) 1 mg PRN Q10MIN PRN IV SEVERE PAIN; Start 11/20/18 at 07:00; Stop 11/21/18 at 06:59; Status DC Ringer's Solution 1,000 ml @ 30 mls/hr Q24H IV Last administered on 11/20/18at 09:13; Start 11/20/18 at 07:00; Stop 11/20/18 at 18:59; Status DC Lidocaine HCl (Xylocaine-Mpf 1% 2ml Vial) 2 ml PRN 1X PRN ID PRIOR TO IV START ; Start 11/20/18 at 07:00; Stop 11/21/18 at 06:59; Status DC Hydromorphone HCl (Dilaudid) 0.5 mg PRN Q10MIN PRN IV SEV PAIN, Second choice Last administered on 11/20/18at 19:34; Start 11/20/18 at 07:00; Stop 11/21/18 at 06:59; Status DC Prochlorperazine Edisylate (Compazine) 5 mg PACU PRN PRN IV NAUSEA, MRX1; Start 11/20/18 at 07:00; Stop 11/21/18 at 06:59; Status DC Levofloxacin/ Dextrose 150 ml @ 100 mls/hr 1X PREOP PRN IV PRIOR TO PROCEDURE ; Start 11/20/18 at 06:00; Stop 11/20/18 at 18:00; Status DC Bupivacaine HCl/ Epinephrine Bitart (Sensorcain-Mpf Epi 0.5%-1:[id number]) 30 ml STK -MED ONCE .ROUTE Last administered on 11/20/18at 15:18; Start 11/20/18 at 07:26 ; Stop 11/20/18 at 08:26; Status DC Methylene Blue (Methylene Blue) 1 ml STK-MED ONCE .ROUTE ; Start 11/20/18 at 07: 26; Stop 11/20/18 at 08:26; Status DC Estrogens Conjugated (Premarin) 30 riley STK-MED ONCE .ROUTE ; Start 11/20/18 at 07:26; Stop 11/20/18 at 08:27; Status DC Famotidine (Pepcid Vial) 20 mg STK-MED ONCE .ROUTE ; Start 11/20/18 at 11:10; Stop 11/20/18 at 11:11; Status DC Ondansetron HCl (Zofran) 4 mg STK-MED ONCE .ROUTE ; Start 11/20/18 at 11:10; Stop 11/20/18 at 11:11; Status DC Propofol 20 ml @ As Directed STK-MED ONCE IV ; Start 11/20/18 at 11:10; Stop at 11:11; Status DC Lidocaine HCl (Xylocaine-Mpf 1% 5ml Vial) 5 ml STK-MED ONCE .ROUTE ; Start 11/20 at 11:10; Stop 11/20/18 at 11:11; Status DC Fentanyl Citrate (Fentanyl 2ml Vial) 100 mcg STK-MED ONCE .ROUTE ; Start at 11:10; Stop 11/20/18 at 11:11; Status DC Midazolam HCl (Versed) 2 mg STK-MED ONCE .ROUTE ; Start 11/20/18 at 11:10; Stop 11/20/18 at 11:12; Status DC Rocuronium Clinton (Zemuron) 50 mg STK-MED ONCE .ROUTE ; Start 11/20/18 at 11:11 ; Stop 11/20/18 at 11:12; Status DC Lidocaine/Sodium Bicarbonate (Buffered Lidocaine 1%) 3 ml 1X ONCE INJ ; Start 11/20/18 at 12:15; Stop 11/20/18 at 12:16; Status DC Bupivacaine HCl/ Epinephrine Bitart (Sensorcain-Mpf Epi 0.5%-1:[id number]) 30 ml STK -MED ONCE .ROUTE ; Start 11/20/18 at 12:02; Stop 11/20/18 at 13:02; Status DC Isosulfan Blue (Isosulfan Blue) 50 mg STK-MED ONCE SQ Last administered on 11/20at 13:41; Start 11/20/18 at 12:21; Stop 11/20/18 at 13:22; Status DC Al Hydroxide/Mg Hydroxide (Mylanta Plus Xs) 30 ml PRN Q3HRS PRN PO HEARTBURN / GAS; Start 11/20/18 at 15:15 Calcium Carbonate/ Glycine (Tums) 500 mg PRN Q3HRS PRN PO INDIGESTION Last administered on 11/22/18at 08:23; Start 11/20/18 at 15:15 Simethicone (Gas-X) 80 mg PRN AFTMEALHC PRN PO GAS / BLOATING Last administered on 11/21/18at 17:15; Start 11/20/18 at 15:15 Diphenhydramine HCl (Benadryl) 25 mg PRN Q6HRS PRN PO ITCHING; Start 11/20/18 at 15:15 Diphenhydramine HCl (Benadryl) 25 mg PRN Q6HRS PRN IV ITCHING; Start 11/20/18 at 15:15 Zolpidem Tartrate (Ambien) 5 mg PRN QHS PRN PO INSOMNIA; Start 11/20/18 at 15: 15 Naloxone HCl (Narcan) 0.1 mg PRN Q2MIN PRN IV SEE COMMENTS; Start 11/20/18 at 15:15 Sodium Chloride (Normal Saline Flush) 3 ml QSHIFT PRN IV AFTER MEDS AND BLOOD DRAWS; Start 11/20/18 at 15:15; Stop 11/21/18 at 09:07; Status DC Dextrose (Dextrose 50%-Water Syringe) 12.5 gm PRN Q15MIN PRN IV SEE COMMENTS; Start 11/20/18 at 15:15 Hydromorphone HCl (Dilaudid) 0.2 mg PRN Q1HR PRN IV PAIN; Start 11/20/18 at 15: 15 Oxycodone HCl (Roxicodone) 5 mg PRN Q4HRS PRN PO MILD PAIN; Start 11/20/18 at 15:15 Senna/Docusate Sodium (Senna Plus) 1 tab BID PO Last administered on 11/22/18at 08:30; Start 11/20/18 at 21:00 Docusate Sodium (Colace) 100 mg BID PO Last administered on 11/22/18at 08:23; Start 11/20/18 at 21:00 Ondansetron HCl (Zofran) 4 mg PRN Q6HRS PRN IV NAUESA, 1ST CHOICE; Start at 15:15 Cefazolin Sodium 1 gm/Dextrose 50 ml @ 100 mls/hr Q6H IV Last administered on 11/21/18at 08:54; Start 11/20/18 at 21:00; Stop 11/21/18 at 09:29; Status DC Fentanyl Citrate (Fentanyl 2ml Vial) 100 mcg STK-MED ONCE .ROUTE ; Start at 15:08; Stop 11/21/18 at 13:50; Status DC Rocuronium Clinton (Zemuron) 50 mg STK-MED ONCE .ROUTE ; Start 11/20/18 at 15:12 ; Stop 11/21/18 at 13:50; Status DC Sodium Chloride (Normal Saline Flush) 3 ml QSHIFT PRN IV AFTER MEDS AND BLOOD DRAWS; Start 11/20/18 at 15:45 Sodium Chloride 1,000 ml @ 75 mls/hr [id number] IV Last administered on at 20:07; Start 11/20/18 at 16:00; Stop 11/21/18 at 13:50; Status DC Oxycodone HCl (Roxicodone) 10 mg PRN Q4HRS PRN PO MODERATE PAIN Last administered on 11/22/18at 11:35; Start 11/20/18 at 15:45 Hydromorphone HCl (Dilaudid) 0.4 mg PRN Q2HR PRN IV PAIN; Start 11/20/18 at 15: 45 Ondansetron HCl (Zofran) 4 mg PRN Q6HRS PRN IV NAUESA, 1ST CHOICE; Start at 15:45; Status UNV Neostigmine Methylsulfate (Bloxiverz) 10 mg STK-MED ONCE .ROUTE ; Start at 15:56; Stop 11/20/18 at 15:57; Status DC Fentanyl Citrate (Fentanyl 2ml Vial) 100 mcg STK-MED ONCE .ROUTE ; Start at 16:07; Stop 11/21/18 at 13:50; Status DC Hydralazine HCl (Apresoline Inj) 20 mg STK-MED ONCE .ROUTE ; Start 11/20/18 at 16:14; Stop 11/21/18 at 13:50; Status DC Metoprolol Tartrate (Lopressor Vial) 5 mg STK-MED ONCE IVP ; Start 11/20/18 at 16:27; Stop 11/21/18 at 13:50; Status DC Glycopyrrolate (Robinul) 1 mg STK-MED ONCE .ROUTE ; Start 11/20/18 at 17:07; Stop 11/21/18 at 13:50; Status DC Ketorolac Tromethamine (Toradol For Or Only) 30 mg STK-MED ONCE INJ ; Start at 17:12; Stop 11/21/18 at 13:50; Status DC Desflurane (Suprane) 90 ml STK-MED ONCE IH ; Start 11/20/18 at 17:15; Stop 11/21 at 13:50; Status DC Hydromorphone HCl (Dilaudid) 2 mg STK-MED ONCE .ROUTE ; Start 11/20/18 at 17:18 ; Stop 11/21/18 at 13:50; Status DC Al Hydroxide/Mg Hydroxide (Mylanta Plus Xs) 30 ml PRN Q3HRS PRN PO HEARTBURN / GAS; Start 11/20/18 at 17:15; Stop 11/20/18 at 17:34; Status DC Calcium Carbonate/ Glycine (Tums) 500 mg PRN Q3HRS PRN PO INDIGESTION; Start at 17:15; Stop 11/20/18 at 17:33; Status DC Simethicone (Gas-X) 80 mg PRN AFTMEALHC PRN PO GAS / BLOATING; Start 11/20/18 at 17:15; Stop 11/20/18 at 17:34; Status DC Diphenhydramine HCl (Benadryl) 25 mg PRN Q6HRS PRN PO ITCHING; Start 11/20/18 at 17:15; Stop 11/20/18 at 17:33; Status DC Diphenhydramine HCl (Benadryl) 25 mg PRN Q6HRS PRN IV ITCHING; Start 11/20/18 at 17:15; Stop 11/20/18 at 17:33; Status DC Zolpidem Tartrate (Ambien) 5 mg PRN QHS PRN PO INSOMNIA; Start 11/20/18 at 17: 15; Stop 11/20/18 at 17:34; Status DC Naloxone HCl (Narcan) 0.1 mg PRN Q2MIN PRN IV SEE COMMENTS; Start 11/20/18 at 17:15; Stop 11/20/18 at 17:34; Status DC Sodium Chloride (Normal Saline Flush) 3 ml QSHIFT PRN IV AFTER MEDS AND BLOOD DRAWS; Start 11/20/18 at 17:15; Stop 11/20/18 at 17:33; Status DC Dextrose (Dextrose 50%-Water Syringe) 12.5 gm PRN Q15MIN PRN IV SEE COMMENTS; Start 11/20/18 at 17:15; Stop 11/20/18 at 17:33; Status DC Hydromorphone HCl (Dilaudid) 0.2 mg PRN Q1HR PRN IV PAIN; Start 11/20/18 at 17: 15; Status UNV Senna/Docusate Sodium (Senna Plus) 1 tab BID PO ; Start 11/20/18 at 21:00; Stop 11/20/18 at 21:00; Status DC Docusate Sodium (Colace) 100 mg BID PO ; Start 11/20/18 at 21:00; Stop 11/20/18 at 21:00; Status DC Ondansetron HCl (Zofran) 4 mg PRN Q6HRS PRN IV NAUESA, 1ST CHOICE; Start at 17:15; Stop 11/20/18 at 17:34; Status DC Hydromorphone HCl 30 ml @ 0 mls/hr CONT PRN PRN IV PER PROTOCOL Last administered on 11/20/18at 18:33; Start 11/20/18 at 17:15; Stop 11/21/18 at 13:50 ; Status DC Hydromorphone HCl (Dilaudid) 0.5 mg PRN Q10MIN PRN IV Moderate to severe pain; Start 11/20/18 at 17:45; Stop 11/20/18 at 22:00; Status DC Hydromorphone HCl (Dilaudid) 2 mg STK-MED ONCE .ROUTE ; Start 11/20/18 at 18:20 ; Stop 11/21/18 at 13:50; Status DC Insulin Human Lispro (HumaLOG VIAL) 8 unit 1X ONCE SQ Last administered on at 19:00; Start 11/20/18 at 19:00; Stop 11/21/18 at 13:50; Status DC Cetirizine HCl (ZyrTEC) 10 mg DAILY PO Last administered on 11/22/18at 08:23; Start 11/21/18 at 09:00 Gabapentin (Neurontin) 300 mg BID PO Last administered on 11/22/18at 08:22; Start 11/20/18 at 22:00 Glimepiride (Amaryl) 1 mg DAILY PO Last administered on 11/22/18at 08:25; Start 11/21/18 at 09:00 Atorvastatin Calcium (Lipitor) 10 mg QHS PO Last administered on 11/21/18 21: 06; Start 11/20/18 at 22:00 Metformin HCl (Glucophage) 500 mg BIDWMEALS PO Last administered on 11/22/18 08:32; Start 11/21/18 at 08:00 Montelukast Sodium (Singulair) 10 mg QHS PO Last administered on 11/21/18 21: 06; Start 11/20/18 at 22:00 Propranolol HCl (Inderal La) 120 mg DAILY PO Last administered on 11/21/18 08: 55; Start 11/21/18 at 09:00 Famotidine (Pepcid) 20 mg DAILY PO Last administered on 11/22/18 08:23; Start 11/21/18 at 09:00 Venlafaxine HCl (Effexor) 100 mg TID PO Last administered on 11/22/18 08:24; Start 11/20/18 at 22:00 Magnesium Hydroxide (Milk Of Magnesia) 2,400 mg PRN DAILY PRN PO CONSTIPATION Last administered on 11/22/18 08:25; Start 11/22/18 at 07:45 Bisacodyl (Dulcolax Supp) 10 mg PRN DAILY PRN NC CONSTIPATION Last administered on 11/22/18at 11:34; Start 11/22/18 at 11:30 Active Scripts Active Reported Metformin Hcl 500 Mg Tablet 500 Mg PO BIDWMEALS Tramadol Hcl 50 Mg Tablet 50 Mg PO Q6HRS PRN Montelukast Sodium Tablet (Montelukast Sodium) 10 Mg Tablet 1 Tab PO DAILY Glimepiride 1 Mg Tablet 1 Tab PO DAILY Lovastatin 40 Mg Tablet 1 Tab PO DAILY Cetirizine Hcl 10 Mg Tablet 1 Tab PO DAILY Ranitidine Hcl 150 Mg Tablet 1 Tab PO DAILY Propranolol Hcl 80 Mg Cap.sa.24h 120 Mg PO DAILY Gabapentin 300 Mg Capsule 300 Mg PO BID Vitals/I & O Vital Sign - Last 24 Hours 11/21/18 11/21/18 11/21/18 11/22/18 13:30 16:32 23:04 06:17 Temp 98.2 98.0 98.3 98.2 98.2 98.0 98.3 98.2 Pulse 88 81 90 Resp 18 14 18 B/P (MAP) 148/65 (92) 125/71 (89) 120/67 (84) 119/67 (84) Pulse Ox 95 96 95 95 O2 Delivery Room Air Room Air Room Air Room Air Intake and Output 11/21/18 11/21/18 11/22/18 15:00 23:00 07:00 Intake Total 650 ml 700 ml Output Total 720 ml 1000 ml Balance -70 ml -300 ml MATTIE CHENEY MD Nov 22, 2018 13:19
[2018-11-22] MEDS: SIMETHICONE 80 MG TAB.CHEW PO PRN (17:19)
[2018-11-22 17:39] VITALS: BP 124/68
[2018-11-22] MEDS: ATORVASTATIN CALCIUM 10 MG TABLET. PO SCH (20:57)
[2018-11-22] MEDS: MONTELUKAST SODIUM 10 MG TABLET. PO SCH (21:01)
[2018-11-22 23:00] VITALS: BP 102/76
[2018-11-23 05:45] VITALS: BP 124/66
[2018-11-23] MEDS: oxyCODONE IR 5 MG TABLET PO PRN ×4 (05:49→21:19)
[2018-11-23] MEDS: metFORMIN 500 MG TABLET PO SCH ×2 (08:18→16:42)
[2018-11-23] MEDS: VENLAFAXINE 50 MG TABLET. PO SCH ×3 (09:00→21:23)
[2018-11-23] MEDS: DOCUSATE SODIUM 100 MG CAPSULE. PO SCH ×2 (09:12→21:19)
[2018-11-23] MEDS: FAMOTIDINE 20 MG TABLET. PO SCH (09:13)
[2018-11-23] MEDS: GLIMEPIRIDE 2 MG TABLET. PO SCH (09:13)
[2018-11-23] MEDS: SENNOSIDES/DOCUSATE 8.6/50MG TABLET. PO SCH ×2 (09:13→21:19)
[2018-11-23] MEDS: CETIRIZINE HCL 10 MG TABLET. PO SCH (09:13)
[2018-11-23] MEDS: GABAPENTIN 300 MG CAPSULE. PO SCH ×2 (09:13→21:19)
--- NOTE | 2018-11-23 11:10 | PDOC ---
SURGICAL PROGRESS NOTE Subjective Pt. with lower abd pain. She is passing flatus and tolerating regular diet. Will continue with pain management. Vital Signs Vital Signs Date Time Temp Pulse Resp B/P (MAP) Pulse Ox O2 Delivery O2 Flow Rate FiO2 11/23/18 10:01 Room Air 3.0 11/23/18 05:45 98.4 85 124/66 (85) 95 98.4 11/22/18 17:39 18 I&O Intake and Output 11/23/18 07:00 Intake Total 800 ml Output Total 600 ml Balance 200 ml Intake Oral 800 ml Output Urine Total 600 ml PATIENT HAS A SILVA: No General: Alert, Oriented X3, Cooperative HEENT: Atraumatic Lungs: Clear to auscultation Heart: Regular rate Abdomen: Normal bowel sounds, Soft, No masses, Other (PICOs in place. RLQ pain with palpation. Less abd distention from previous day) Psych/Mental Status: Mental status NL Labs Laboratory Tests Test 11/21/18 16:56 11/22/18 08:14 11/22/18 17:24 Glucose (Fingerstick) 225 mg/dL (70-99) 179 mg/dL (70-99) 169 mg/dL (70-99) Laboratory Tests Test 11/22/18 17:24 Glucose (Fingerstick) 169 mg/dL (70-99) Assessment/Plan A: POD#3 s/p Right breast lumpectomy and Supracervical Hysterectomy with BSO P: Continue post op care. Anticipate d/c home tomorrow. ROSALVA BERGER Jr, MD Nov 23, 2018 11:10
[2018-11-23 12:41] VITALS: BP 125/64
--- NOTE | 2018-11-23 12:49 | PDOC ---
SURGICAL PROGRESS NOTE Subjective tolerating diet ambulating mostly pain to abdomen Vital Signs Vital Signs Date Time Temp Pulse Resp B/P (MAP) Pulse Ox O2 Delivery O2 Flow Rate FiO2 11/23/18 12:41 98.0 87 18 125/64 (84) 97 Room Air 98.0 11/23/18 10:01 3.0 I&O Intake and Output 11/23/18 06:59 Intake Total 800 ml Output Total 600 ml Balance 200 ml Intake Oral 800 ml Output Urine Total 600 ml General: Alert, Oriented X3, Cooperative, No acute distress Skin: Other (breast incision dressing intact, no significant ecchymosis ) Labs Laboratory Tests Test 11/21/18 16:56 11/22/18 08:14 11/22/18 17:24 Glucose (Fingerstick) 225 mg/dL (70-99) 179 mg/dL (70-99) 169 mg/dL (70-99) Laboratory Tests Test 11/22/18 17:24 Glucose (Fingerstick) 169 mg/dL (70-99) Assessment/Plan s/p lumpectomy stable noted [employer] possible DC tomorrow WENDIE OSORIO APRN Nov 23, 2018 12:49
[2018-11-23 17:00] VITALS: BP 127/62
[2018-11-23] MEDS: ATORVASTATIN CALCIUM 10 MG TABLET. PO SCH (21:19)
[2018-11-23] MEDS: MONTELUKAST SODIUM 10 MG TABLET. PO SCH (21:19)
[2018-11-23 23:18] VITALS: BP 114/62
[2018-11-24 06:00] VITALS: BP 112/63
[2018-11-24 07:55] VITALS: BP 120/65
--- NOTE | 2018-11-24 08:31 | PDOC ---
SURGICAL PROGRESS NOTE Subjective Pt. feeling well. Pain better controlled. SHe is tolerating regular diet. Pt. is ambulating more and passing flatus. No bowel movement yet. Vital Signs Vital Signs Date Time Temp Pulse Resp B/P (MAP) Pulse Ox O2 Delivery O2 Flow Rate FiO2 11/24/18 06:00 97.9 83 14 112/63 (79) 94 97.9 11/23/18 23:18 Room Air 11/23/18 19:55 3.0 PATIENT HAS A SILVA: No General: Alert, Oriented X3, Cooperative HEENT: Atraumatic Lungs: Clear to auscultation Heart: Regular rate Abdomen: Normal bowel sounds, Soft, No masses, Other (Less distended. Prevena in place.) Extremities: No edema Psych/Mental Status: Mental status NL Labs Laboratory Tests Test 11/22/18 17:24 11/24/18 08:04 Glucose (Fingerstick) 169 mg/dL (70-99) 162 mg/dL (70-99) Laboratory Tests Test 11/24/18 08:04 Glucose (Fingerstick) 162 mg/dL (70-99) Assessment/Plan A: POD#4 s/p Breast bx and Supracervical hysterectomy with BSO P: D/c home. F/u in 1 week. ROSALVA BERGER Jr, MD Nov 24, 2018 08:31
--- NOTE | 2018-11-24 08:31 | DISCH ---
DISCHARGE INSTRUCTIONS Condition on Discharge Condition on Discharge: Stable Activity After Discharge Activity Instructions for Disc: Activity as tolerated Lifting Instructions after Dis: No heavy lifting Driving Instructions after Dis: No driving for 2 weeks Diet after Discharge Diet after Discharge: Regular Contacting the [facility] after DC Call your doctor for: Concerns you may have Follow-Up Follow up with: Dr. Chandra in 1 week. ROSALVA BEREGR Jr, MD Nov 24, 2018 08:31
[2018-11-24] MEDS ORDERED: DOCU-109 PO (08:35)
[2018-11-24] MEDS ORDERED: VENL50TA PO (08:35)
[2018-11-24] MEDS ORDERED: OXYC5TAB4 PO (08:35)
[2018-11-24] MEDS: CETIRIZINE HCL 10 MG TABLET. PO SCH (12:28)
[2018-11-24] MEDS: DOCUSATE SODIUM 100 MG CAPSULE. PO SCH (12:28)
[2018-11-24] MEDS: SENNOSIDES/DOCUSATE 8.6/50MG TABLET. PO SCH (12:28)
[2018-11-24] MEDS: GLIMEPIRIDE 2 MG TABLET. PO SCH (12:29)
[2018-11-24 12:30] VITALS: BP 130/68
[2018-11-24] MEDS: metFORMIN 500 MG TABLET PO SCH (12:30)
[2018-11-24] MEDS: GABAPENTIN 300 MG CAPSULE. PO SCH (12:30)
[2018-11-24] MEDS: PROPRANOLOL ER 60 MG CAP.SA.24H. PO SCH (12:30)
[2018-11-24] MEDS: FAMOTIDINE 20 MG TABLET. PO SCH (12:31)
[2018-11-24] MEDS: VENLAFAXINE 50 MG TABLET. PO SCH (12:40)
[2018-11-24] MEDS: oxyCODONE IR 5 MG TABLET PO PRN (12:42)
--- NOTE | 2018-11-24 13:22 | PDOC ---
SURGICAL PROGRESS NOTE Subjective improving tolerating diet pain managed Vital Signs Vital Signs Date Time Temp Pulse Resp B/P (MAP) Pulse Ox O2 Delivery O2 Flow Rate FiO2 11/24/18 12:42 18 Room Air 11/24/18 12:30 79 130/68 11/24/18 07:55 97.6 98 97.6 11/23/18 19:55 3.0 General: Alert, Oriented X3, Cooperative, No acute distress Skin: Other (breast dressing intact, no significant swelling) Labs Laboratory Tests Test 11/22/18 17:24 11/24/18 08:04 Glucose (Fingerstick) 169 mg/dL (70-99) 162 mg/dL (70-99) Laboratory Tests Test 11/24/18 08:04 Glucose (Fingerstick) 162 mg/dL (70-99) Assessment/Plan dc today FU next week WENDIE OSORIO APRN Nov 24, 2018 13:22
[2018-11-24 14:20] VITALS: BP 130/52
--- NOTE | 2018-11-24 14:39 | NUR ---
Reviewed discharge instructions with pt. Pt verbalized understanding of discharge instructions. Pt home with SO no s/sx of distress noted.
--- NOTE | 2018-11-27 17:07 | PATHOLOGY ---
[facility] Accession Number: [id number] . 01 Material submitted: . PART A: RT AXILLARY SENTINEL LYMPH NODE PART B: RT BREAST LUMPECTOMY PART C: R BREAST SUPERIOR MARGIN PART D: R BREAST MEDIAL MARGIN PART E: R BREAST LATERAL MARGIN PART F: R BREAST DEEP MARGIN PART G: R BREAST INFERIOR PART H: RIGHT FALLOPIAN TUBE AND R OVARY PART I: LEFT FALLOPIAN TUBE AND LT OVARY PART J: UTERUS . 01 Clinical history: . Breast cancer . 02 Diagnosis: A. Lymph nodes and adipose tissue, right axillary sentinel lymph node #1: - Two lymph nodes negative for tumor (0/2). . B. Segment of breast tissue, wire localized right breast lumpectomy: - INVASIVE DUCTAL CARCINOMA, INTERMEDIATE GRADE, ARISING WITHIN A BACKGROUND OF EXTENSIVE DUCTAL CARCINOMA IN SITU, INTERMEDIATE TO FOCAL HIGH GRADE, CRIBRIFORM TYPE, WITH FOCAL CENTRAL NECROSIS. - INVASIVE DUCTAL CARCINOMA IS FOCALLY LESS THAN 1 MM FROM THE CLOSEST INFERIOR MARGIN OF RESECTION. - DCIS IS FOCALLY PRESENT AT THE LATERAL MARGIN OF RESECTION AND IS LESS THAN 1 MM FROM THE INFERIOR AND SUPERIOR MARGINS OF RESECTION. - Previous biopsy site changes. - Fibrocystic changes, focal. - Fibroadenomatous changes, focal. . C. Breast tissue, superior margin right breast: - Negative for tumor. . D. Breast tissue, medial margin right breast: - Fibrocystic changes, focal - negative for tumor. . E. Breast tissue, right breast lateral margin: - Negative for tumor. . F. Breast tissue, right breast deep margin: - Negative for tumor. . G. Breast tissue, right breast inferior margin: - Negative for tumor. . H. Fallopian tube and ovary, right salpingo-oophorectomy: - Cystic follicle with regressive changes of ovary. - Congestion of fallopian tube. . I. Fallopian tube and ovary, left salpingo-oophorectomy: - Congestion of fallopian tube. - Small left paratubal cysts. - Ovary showing no diagnostic abnormalities. . J. Uterine corpus, hysterectomy: - Disordered proliferative endometrium. - Adenomyosis. - Leiomyomas, submucosal/intramural/subserosal, multiple, the largest measuring 1.5 cm. . (JPM/db; 11/24/2018) . INVASIVE CARCINOMA OF THE BREAST: . Procedure ___ Other (specify): Wire localized lumpectomy . Specimen Laterality ___ Right . Tumor Site: Invasive Carcinoma ___ Not specified . Tumor Size ___ Greatest dimension of largest invasive focus >1 mm: 10-15 mm . Histologic Type ___ Invasive carcinoma of no special type (ductal, not otherwise specified) . Histologic Grade (Evelyn Histologic Score) . Glandular (Acinar)/Tubular Differentiation ___ Score 3 (<10% of tumor area forming glandular/tubular structures) . Nuclear Pleomorphism ___ Score 2 (cells larger than normal with open vesicular nuclei, visible nucleoli, and moderate variability in both size and shape) . Mitotic Rate ___ Score 2 (4-7 mitoses per mm2) . Overall Grade ___ Grade 2 (scores of 6 or 7) . Tumor Focality ___ Several foci of invasive carcinoma arising within extensive ductal carcinoma in situ . Ductal Carcinoma In Situ (DCIS) ___ Present ___ Positive for Extensive Intraductal Component . Size (Extent) of DCIS ___Number of blocks with DCIS: 11 ___Number of blocks examined: 18 . Architectural Patterns ___ Cribriform . Nuclear Grade ___ Grade II (intermediate) . Necrosis ___ Present, central (expansive "comedo" necrosis) . Lobular Carcinoma In Situ (LCIS) ___ No LCIS in specimen . Margins . Invasive Carcinoma Margins ___ Uninvolved by invasive carcinoma ___ Distance from closest margin: Less than 1 mm ___ Specify closest margin: Inferior margin . DCIS Margins ___ Positive for DCIS ___ Specify margin(s): Lateral margin . Regional Lymph Nodes . ___ Uninvolved by tumor cells ___ Number of [place] Nodes Examined: 2 . Treatment Effect ___ No known presurgical therapy . . Lymphovascular Invasion ___ Not identified . Pathologic Stage Classification (pT) . Primary Tumor (Invasive Carcinoma) (pT) ___ pT1c:Tumor >10 mm but less than or equal to 20 mm in greatest dimension . Regional Lymph Nodes (pN) . Category (pN) ___ pN0:No regional lymph node metastasis identified . Microcalcifications ___ Present in DCIS ___ Present in invasive carcinoma ___ Present in non-neoplastic tissue . Clinical History ___ Palpable mass ___ Radiologic finding ___ Mass or architectural distortion . (JPM:pit 11/27/2018) LBQ/11/27/2018 . 02 Comment: Sections of the wire localized right breast lumpectomy show extensive ductal carcinoma in situ, intermediate to focal high grade, cribriform type, with focal central necrosis. There appear to be several foci of invasive, intermediate grade ductal carcinoma arising in association with the extensive ductal carcinoma in situ. The largest focus appears to measure between 1.0 and 1.5 cm in greatest dimension. Invasive ductal carcinoma is focally less than 1 mm from the closest inferior margin of resection. Ductal carcinoma in situ is focally present at the lateral margin of resection and is less than 1 mm from the closest inferior and superior margins of resection. Additional specimens from the superior, medial, lateral, deep, and inferior margins of resection are negative for tumor. . The right axillary sentinel lymph node is examined at multiple levels. An immunoperoxidase stain for AE1/AE3 is also obtained on the sentinel lymph node and yields the following results: AE1/AE3 (A1): Two lymph nodes negative for tumor. (JPM/db; 11/24/2018) . . . 02 Electronically signed: . Lance Jo MD, Pathologist NPI- [id number] . 01 Gross description: . A. The specimen is received fresh for intraoperative consultation and is designated "right axillary sentinel lymph node #1". This consists of an elongate segment of yellow fatty tissue measuring 3.2 cm in length and up to 1.7 cm in width. This segment shows focal bluish discoloration. The specimen is bisected. There appear to be two lymph nodes. One shows bluish discoloration and partial fatty infiltration and measures up to 2 cm in greatest dimension. The other is a pinkish jacobson lymph node measuring 0.6 cm. These show no gross evidence of tumor replacement. All is submitted for frozen section as FSA1. The tissue remaining from frozen section is submitted for permanent sections as A1. (JPM:bahman; 11/20/2018) . B. The specimen is received in formalin, labeled "Kylah Vera, Rt breast lumpectomy" and consists of an oriented 74 g lumpectomy specimen with a long stitch lateral and short stitch superficial. Protruding from the inferior/lateral aspect is a metal localization wire. The coordinates 5-B on the grid correlate to the location of the biopsy clip which is on the inferior anterior aspect (inked black). The specimen measures 9.5 cm A-P, 6.8 cm L-M, 2.4 cm S-I, and is inked as follows: superior-blue, inferior-green, medial-red, lateral-yellow, anterior- orange, and posterior-black. It is sectioned from anterior to posterior into 23 slices revealing a white mass in slices 5-12 measuring 2.3 x 2.1 x 1.4 cm. The mass extends from the margins as follows: 0.1 cm inferior, 0.5 cm superior, 0.3 cm lateral, and greater than 2 cm all remaining margins. Posterior the mass (slices 8-15) show hemorrhage/biopsy changes. No additional masses or lesions are identified. Lab Specialist sections are submitted as follows: . B1-B2: Slice 1 anterior, perpendicular B3: Lab Specialist slice 5, anterior aspect of mass B4: Lab Specialist slice 6 to include mass B5: Lab Specialist slice 7 to show mass relationship to inferior and superior B6-B8: Entire slice 8 trisected L-M B9-B11: Entire slice 9 trisected L-M B12: Lab Specialist slice 10 to include mass B13: Lab Specialist slice 11 to show relationship to inferior B14: Lab Specialist slice 12 to show possible posterior aspect of mass B15-B17: Entire slice13, posterior to mass trisected L-M B18: Slice 23 posterior, perpendicular . The specimen was obtained at 2:19 PM on 11/20/18 and placed in formalin at 2:40 PM. The cold ischemic time is 21 minutes and the total formalin fixation time is greater than 6 hours but less than 72 hours. . C. The specimen is received in formalin, labeled "Kylah Vera, superior margin right breast" and consists of an unoriented 10 g segment of yellow-orange lobulated tissue measuring 4.8 x 4.5 x 1.0 cm. One aspect is roughened consistent with "old margin." The presumed new margin is inked blue and sectioning reveals scattered fibrous aspects and no identifiable residual tumor. Alternating sections are submitted in C1-C5. . D. The specimen is received in formalin, labeled "Derian Veraa, medial margin right breast" and consists of an unoriented 6 g segment of yellow- orange lobulated tissue measuring 5.3 x 3.1 x 0.8 cm. The presumed new margin is inked red. Sectioning reveals no gross lesions and outreach representative sections are submitted in D1-D3. . E. The specimen is received in formalin, labeled "Ceradsky, Kylah, right breast lateral margin" and consists of an unoriented 5 g segment of yellow-orange lobulated tissue measuring 4.4 x 3.0 x 0.7 cm. The presumed new margin is inked yellow. Sectioning reveals no gross lesions and the specimen is entirely submitted in E1-E4 . F. The specimen is received in formalin, labeled "Ceradsky, Kylah, right breast deep margin" and consists of an unoriented 4 g segment of yellow-orange lobulated tissue measuring 4.0 x 3.3 x 1.0 cm. A new/old margin is difficult to determine. One margin is inked black and sectioning reveals no gross lesions. Lab Specialist alternating sections are submitted in F1-F3. . G. The specimen is received in formalin, labeled "Derian Veraa, right breast inferior margin" and consists of an unoriented 4 g segment of yellow lobulated tissue measuring 4.0 x 3.5 x 0.7 cm. The new margin is inked green. Sectioning reveals no gross lesions and the specimen is entirely submitted in G1-G4. . H. The specimen is received in formalin, labeled "Jody, Kylah, right fallopian tube and right ovary" and consists of a pink-lay fimbriated fallopian tube (6.4 cm in length and 0.4 cm in diameter) which is attached to a 3 g white-david cerebriform ovary (2.8 x 1.8 x 1.1 cm). Sectioning the tube reveals a well-defined pinpoint central lumen and no gross lesions. Sectioning the ovary reveals a fluid-filled subcortical uniloculated cyst measuring 1.0 cm as well as a hemorrhagic luteum. Lab Specialist sections are submitted as follows: . H1: Fallopian tube H2-H3: Ovary . I. The specimen is received in formalin, labeled "Kylah Vera, left fallopian tube and ovary" and consists of a pink-lay fimbriated fallopian tube (6.2 cm in length and up to 0.6 cm in diameter) which is attached to a 2 g cerebriform white-jacobson ovary (2.3 x 1.8 x 1.3 cm). Sectioning the tube reveals a well-defined central lumen and no gross lesions. Sectioning the ovary reveals homogenous jacobson cut surfaces. Lab Specialist sections are submitted as follows: . I1: Fallopian tube I2: Ovary . J. The specimen is received in formalin, labeled "Kylah Vera, uterus" and consists of a previously opened 47 g uterus without cervix. The serosa is pink-jacobson, smooth, and shiny. No endocervical canal is present. The endometrial cavity is "Y-shaped" measuring 3.8 cm in length and up to 2.5 cm in width which is lined by an attenuated 0.1 cm or less endometrium. Multiple subserosal, submucosal, and intramural nodules are present with the largest measuring 1.5 cm in greatest dimension. The nodule cut surfaces are homogeneous white and whorled with no hemorrhage, necrosis, or calcifications. The myometrium measures up to 1.8 cm showing evidence of possible adenomyosis. Lab Specialist sections are submitted as follows: . J1-J2: Opposing endomyometrium J3: Nodules and possible adenomyosis J4: Additional nodules (SDY; 11/21/2018) . INTRAOPERATIVE CONSULTATION WITH FROZEN SECTION (Lance Jo MD) . FSA1. Right axillary sentinel lymph node #1: - Two lymph nodes negative for tumor. . The results are reported to Dr. Anderson in the operating room. (JPM:bahman:db; 11/20/2018) . Frozen section performed at [facility], [address] [place] [id number]. SYU/QMS . 02 Pathologist provided ICD-10: C50.911, D05.11, N60.11, N83.8 . 02 CPT . 265678, 570021, 518920, 510990, 199570, 192974, 197121, X71431 Specimen Comment: A courtesy copy of this report has been sent to Specimen Comment: [phone], . Specimen Comment: Report sent to / DR PRECIADO Performed at: [address], [place] [id number] MD Bill Jimenez MD Phone: [phone] [facility]formed at: [facility] [address] [place], [place] [id number] MD Lance Jo MD Phone: [phone]
--- NOTE | 2018-12-04 10:01 | PDOC3 ---
Discharge Summary Visit Information Admitting Diagnosis: right breast cancer ,Symptomatic leiomyomata, abnormal u Final Diagnosis right breast cancer ,Symptomatic leiomyomata, abnormal uterine bleeding Brief Hospital Course Allergies Allergies Coded Allergies Type Severity Reaction Last Updated Verified Penicillins Allergy Intermediate ITCH 11/20/18 Yes acetaminophen Allergy Intermediate 11/20/18 Yes Brief Hospital Course Ms. Vera is a 48 old female who underwent Right lumpectomy with wire localization, right axillary sentinel lymph node biopsy. She also underwent Laparoscopic assisted vaginal hysterectomy, converted to abdominal supracervical hysterectomy with BSO. Postoperatively slowly tolerating diet, ambulating and pain managed. Discharge Information Condition at Discharge: Stable Follow Up: Weeks (2) Disposition/Orders: D/C to Home Scheduled Cetirizine Hcl (Cetirizine Hcl) 10 Mg Tablet, 1 TAB PO DAILY for allergy, #30 Ref 5 (Reported) Entered as Reported by: RUSTY JIMENEZ on 11/20/18900 Last Action: Continued on 11/20/182125 by KAREN GUILLORY Docusate Sodium (Colace) 100 Mg Capsule, 100 MG PO BID for constipation, #60 Ref 1 Prescribed by: ROSALVA BERGER on 11/24/18 08 Gabapentin (Gabapentin) 300 Mg Capsule, 300 MG PO BID for NEUROGENIC PAIN, ( Reported) Entered as Reported by: RUSTY JIMENEZ on 11/20/18900 Last Action: Continued on 11/20/182125 by KAREN GUILLORY Glimepiride (Glimepiride) 1 Mg Tablet, 1 TAB PO DAILY for blood sugar , #30 Ref 5 (Reported) Entered as Reported by: RUSTY JIMENEZ on 11/20/18900 Last Action: Converted on 11/20/182125 by KAREN GUILLORY Lovastatin (Lovastatin) 40 Mg Tablet, 1 TAB PO DAILY for cholesterol, #30 Ref 5 (Reported) Entered as Reported by: RUSTY JIMENEZ on 11/20/18900 Last Action: Converted on 11/20/182125 by KAREN GUILLORY Metformin Hcl (Metformin Hcl) 500 Mg Tablet, 500 MG PO BIDWMEALS for ANTI- DIABETIC, Ref 0 (Reported) Entered as Reported by: RUSTY JIMENEZ on 11/20/18900 Last Action: Converted on 11/20/182125 by KAREN GUILLORY Montelukast Sodium (Montelukast Sodium Tablet) 10 Mg Tablet, 1 TAB PO DAILY for allergy, #30 Ref 5 (Reported) Entered as Reported by: RUSTY JIMENEZ on 11/20/18900 Last Action: Converted on 11/20/182125 by KAREN GUILLORY Propranolol Hcl (Propranolol Hcl) 80 Mg Cap.sa.24h, 120 MG PO DAILY for migranes , (Reported) Entered as Reported by: RUSTY JIMENEZ on 11/20/18900 Last Action: Converted on 11/20/182125 by KAREN GUILLORY Ranitidine Hcl (Ranitidine Hcl) 150 Mg Tablet, 1 TAB PO DAILY for reflus, #180 Ref 3 (Reported) Entered as Reported by: RUSTY JIMENEZ on 11/20/18900 Last Action: Converted on 11/20/182125 by KAREN GUILLORY Venlafaxine Hcl (Venlafaxine Hcl) 50 Mg Tablet, 100 MG PO TID for menopause, # 30 Ref 3 Prescribed by: ROSALVA BERGER on 11/24/18 0835 Scheduled PRN Oxycodone Hcl (Oxycodone Hcl Immed.release ) 5 Mg Tablet, 5 MG PO PRN Q4HRS PRN for MILD PAIN, #30 Ref 0 Prescribed by: ROSALVA BERGER on 11/24/18 0835 Tramadol Hcl (Tramadol Hcl) 50 Mg Tablet, 50 MG PO Q6HRS PRN for PAIN, (Reported ) Entered as Reported by: RUSTY JIMENEZ on 11/20/18900 Last Action: New Order on 11/20/18900 by WENDIE ROBLERO APRN Dec 04, 2018 10:01
[2018-12-19] MEDS ORDERED: VENL75CA6 PO (08:39)
[2019-01-05] MEDS ORDERED: GABA600T7 PO (12:12)
== END 2018-11-24 14:41 | disposition home or self-care (01) | DRG 742 ==
LOC: SURG 08:21 → 1 WEST ICU 18:00 → 3 NORTH 11-21 12:00
PROVIDERS: ADMIT Surgery; ATTEND Surgery
PROC: 0UJD4ZZ Inspection of Uterus and Cervix, Percutaneous Endoscopic Approach (ICD-10-PCS; 2018-11-20)
PROC: 0UT20ZZ Resection of Bilateral Ovaries, Open Approach (ICD-10-PCS; 2018-11-20 11:30)
PROC: 0UT70ZZ Resection of Bilateral Fallopian Tubes, Open Approach (ICD-10-PCS; 2018-11-20 11:30)
PROC: 0UT90ZL Resection of Uterus, Supracervical, Open Approach (ICD-10-PCS; 2018-11-20 11:30)
PROC: 0HBT0ZZ Excision of Right Breast, Open Approach (ICD-10-PCS; principal; 2018-11-21)
PROC: 07B50ZX Excision of Right Axillary Lymphatic, Open Approach, Diagnostic (ICD-10-PCS; 2018-11-21)
DX: D25.9 Leiomyoma of uterus, unspecified (principal); Z68.41 Body mass index [BMI] 40.0-44.9, adult; C50.911 Malignant neoplasm of unspecified site of right female breast; E66.9 Obesity, unspecified; M79.7 Fibromyalgia; G47.33 Obstructive sleep apnea (adult) (pediatric); F32.9 Major depressive disorder, single episode, unspecified; R59.9 Enlarged lymph nodes, unspecified; G43.909 Migraine, unspecified, not intractable, without status migrainosus; K21.9 Gastro-esophageal reflux disease without esophagitis; E11.9 Type 2 diabetes mellitus without complications; Z85.528 Personal history of other malignant neoplasm of kidney; Z83.3 Family history of diabetes mellitus; Z80.8 Family history of malignant neoplasm of other organs or systems; Z53.31 Laparoscopic surgical procedure converted to open procedure
CPT/HCPCS: 36415; 38792; 76098; 76942; 77065; 80048; 81025; 82962; 85007; 85014; 85018; 85025; 86850; 86900; 86901; 87641; 88305; 88307; 88342; 96374; A7015; A9541; J0360; J0690; J1170; J1885; J1956; J2250; J2405; J2704; J2710; J3010; J3490; J7030; J7120; Q9968

== ENCOUNTER → 2018-12-25 | Outpatient (CLI) | payer OTHER ==
[~2018-12-25] MED LIST changes: -BUPIVAC MPF-EPI 0.5%-1:200000 30 ML VIAL. ONE; +CETI10TA16 PO; +DOCU-109 PO; -ESTROGENS, CONJ VAGINAL CREAM 30GM TUBE. ONE; +GABA300C18 PO; +GABA600T7 PO; +GLIM1TAB2 PO; +IOHEXOL 240 MG/ML 50ML VIAL. PO ONE; +IOHEXOL 300 MG/ML 100ML VIAL. IV ONE; -IV RINGERS,LACTATED 1000ML 1,000 ML IV SCH; -LIDOCAINE 1% PF 2 ML VIAL. ID PRN; +LOVA40TA2 PO; +METF500T16 PO; -METHYLENE BLUE 1% 10 ML VIAL. ONE; +MONT10TA9 PO; -MORPHINE SULFATE 2 MG/ML VIAL. IV PRN; -ONDANSETRON PF 4 MG/2 ML VIAL. IV PRN; +OXYC5TAB4 PO; -PROCHLORPERAZINE 10 MG/2 ML VIAL. IV PRN; +PROP80CA3 PO; +RANI150T2 PO; +TRAM50TA PO; +VENL150T PO; +VENL50TA PO; +VENL75CA6 PO; -fentaNYL PF VIAL 100 MCG/2 ML VIAL IV PRN
--- NOTE | 2018-12-25 15:50 | RAD ---
PQRS Compliance Statement: One or more of the following individualized dose reduction techniques were utilized for this examination: 1. Automated exposure control 2. Adjustment of the mA and/or kV according to patient size 3. Use of iterative reconstruction technique CT CHEST ABD PELVIS W/CONTRAST Clinical Indication: RIGHT BREAST CA Comparison: CT abdomen and pelvis with contrast, May 16, 2018. Technique: Helical CT imaging of the chest, abdomen and pelvis is performed after 75 cc of Omnipaque 300 IV contrast. Oral contrast also given. Findings: There is irregular fluid collection in the right axillary tail that is probably postsurgical measuring up to 4.1 cm AP by 7 cm transverse by 7.5 cm craniocaudal. There are no abnormal axillary lymph nodes. No mediastinal adenopathy. Great vessels are normal caliber. There is coronary artery disease. Cardiac size normal, no pericardial effusion. No pleural effusion. The central airways are patent. The lungs are clear. Liver, gallbladder, spleen, pancreas, and adrenal glands are normal. Abdominal aorta normal caliber. 3 mm nonobstructing calculus lower pole left kidney. Kidneys enhance symmetrically. No hydronephrosis. There is probable scarring of the interpolar right kidney. Posterior to the kidney there is a probable incisional hernia mainly containing fat, image 32. Stomach unremarkable. No dilated small bowel. There is no bowel obstruction, oral contrast reaches the rectum. The appendix is normal. Mild distal colon diverticulosis without inflammation. No colon wall thickening is identified. The appendix is normal. No abdominal adenopathy or free fluid. Small fat-containing umbilical hernia. In the lower ventral abdominal wall at the level the symphysis pubis, there is irregular rim-enhancing subcutaneous fluid collection measuring 3 cm AP by 7.7 cm transverse by 3 cm craniocaudal. Atrophic uterus. Urinary bladder is not well distended, otherwise normal. No pelvic free fluid. No inguinal adenopathy. No osteolytic or blastic lesion is identified. IMPRESSION: 1. No evidence of metastatic disease in the chest abdomen or pelvis. 2. Subcutaneous fluid collection in the right axillary tail is likely postsurgical. 3. Subcutaneous fluid collection in the lower ventral abdominal wall is likely postsurgical. 4. Small nonobstructing left renal calculus. 5. Mild distal colon diverticulosis without diverticulitis. Electronically signed by: Russ Hidalgo MD (12/25/2018 3:47 PM) [id number]
--- NOTE | 2018-12-25 15:50 | RAD ---
Nuclear medicine whole body bone scan History: rt breast ca. History of kidney cancer. Comparison: CT chest abdomen and pelvis with contrast, same day. Technique: Examination performed after intravenous administration of 25 mCi Technetium 99m MDP. Images of the whole body were obtained in the anterior and posterior projections. Findings: Tracer uptake in the spine is relatively homogeneous. Tracer uptake in ribs and pelvic bones is symmetric. Tracer uptake of the shoulders is symmetric. There is asymmetric mild tracer uptake in the lateral right breast that is probably due to hyperemia. Tracer distribution in the soft tissues is otherwise normal. Appendicular skeleton is unremarkable. IMPRESSION: No scintigraphic evidence of bone metastasis. Electronically signed by: Russ Hidalgo MD (12/25/2018 3:47 PM) [id number]
== END | disposition home or self-care (01) ==
LOC: NM 10:37
PROVIDERS: ATTEND Internal Medicine Hematology & Oncology
DX: C50.411 Malignant neoplasm of upper-outer quadrant of right female breast (principal); N20.0 Calculus of kidney; K57.30 Diverticulosis of large intestine without perforation or abscess without bleeding; K42.9 Umbilical hernia without obstruction or gangrene; N85.8 Other specified noninflammatory disorders of uterus; Z85.528 Personal history of other malignant neoplasm of kidney; Z17.0 Estrogen receptor positive status [ER+]
CPT/HCPCS: 71260; 74177; 78306; A9503; Q9966; Q9967

== ENCOUNTER 2019-01-08 05:54 | Day surgery (SDC) | payer OTHER ==
[~2019-01-08] VITALS: Ht 162.6 cm; Wt 68.0 kg
[~2019-01-08 05:54] MED LIST changes: -IOHEXOL 240 MG/ML 50ML VIAL. PO ONE; -IOHEXOL 300 MG/ML 100ML VIAL. IV ONE
[2019-01-08] MEDS ORDERED: HEPARIN SODIUM 5,000 UNIT in IV NORMAL SALINE 500ML BAG 500 ML IRR ONE (06:00)
[2019-01-08] MEDS ORDERED: BUPIVAC MPF-EPI 0.5%-1:200000 30 ML VIAL. ONE (06:01)
[2019-01-08] MEDS ORDERED: IV RINGERS,LACTATED 1000ML 1,000 ML IV SCH (07:00)
[2019-01-08] MEDS ORDERED: LIDOCAINE 1% PF 2 ML VIAL. ID PRN (07:00)
[2019-01-08] MEDS ORDERED: MORPHINE SULFATE 2 MG/ML VIAL. IV PRN (07:00)
[2019-01-08] MEDS ORDERED: fentaNYL PF VIAL 100 MCG/2 ML VIAL IV PRN (07:00)
[2019-01-08] MEDS ORDERED: PROCHLORPERAZINE 10 MG/2 ML VIAL. IV PRN (07:00)
[2019-01-08] MEDS ORDERED: HYDROmorphone 2 MG/ML VIAL IV PRN (07:00)
[2019-01-08] MEDS ORDERED: ONDANSETRON PF 4 MG/2 ML VIAL. IV PRN (07:00)
[2019-01-08] MEDS ORDERED: PROPOFOL 20 ML IV ONE (07:15)
[2019-01-08] MEDS ORDERED: fentaNYL PF VIAL 100 MCG/2 ML VIAL ONE ×2 (07:15→08:53)
[2019-01-08] MEDS ORDERED: ONDANSETRON PF 4 MG/2 ML VIAL. ONE (07:15)
[2019-01-08] MEDS ORDERED: LIDOCAINE 2% PF 5 ML VIAL. ONE (07:15)
[2019-01-08] MEDS ORDERED: MIDAZOLAM HCL/PF 2 MG/2 ML VIAL. ONE (07:15)
[2019-01-08] MEDS ORDERED: DEXAMETHASONE SOD PHOS 4 MG/ML VIAL ONE (07:16)
[2019-01-08] MEDS ORDERED: SEVOFLURANE 31 TO 60 MINUTES. IH ONE (08:07)
--- NOTE | 2019-01-08 08:53 | PDOC4 ---
Operative Note Operative Note Operative Note: Preoperative Diagnosis: Breast Cancer Postoperative Diagnosis: Same Procedure: Placement of Power Port-A-Cath using SonoSite guidance Surgeon: Justin Anesthesia: Gen. EBL: 10 mL Specimen: None Drains: None Complications: None Indication: The patient is a 48 year old female who was recently diagnosed with breast cancer. A request was made for placement of a Port-A-Cath to allow for chemotherapy treatment. The details and risks of the procedure were discussed. The risks include bleeding, infection, vessel injury, pneumothorax, pain, an esthetic risk, port, catheter or tubing malfunction or dysfunction, potential need for additional surgery or procedure. The patient understands and would like to proceed. Description: The patient was placed supine on the operating table and general anesthesia was performed. The bilateral neck and chest were prepped with ChloraPrep and draped in a standard surgical manner. With SonoSite ultrasound guidance the left internal jugular vein was readily identified and appeared patent. Entry was made into the vein with the skinny introducer needle under ultrasound guidance. The skinny guidewire passed readily into the central venous system. A small incision was made at the skin exit site. The skinny sheath was then placed over the guidewire. The larger guidewire was then placed within the sheath into the central venous system. Intraoperative fluoroscopy confirmed good position of the guidewire in the central venous system. The dilator and sheath were then placed over the guidewire. The catheter portion was then inserted into the central venous system and visualized using fluoroscopy. A separate left upper chest skin incision was made with a scalpel. A subcutaneous pocket was developed with cautery of sufficient size to accommodate the port. The catheter was then tunneled subcutaneously to the level of the newly formed pocket. Using fluoroscopy the catheter was positioned with the tip in the distal superior vena cava. The catheter was then cut and assembled to the port. The port was then secured to the chest wall with two 2-0 Prolene sutures. Using the Valdes needle the port readily aspirated and flushed without difficulty. Fluoroscopy confirmed good positioning of the catheter with no twists or kinks. The subcutaneous tissue was approximated with 3-0 Vicryl. The skin was then closed with 4-0 Monocryl. A sterile OpSite dressing was then applied. The patient tolerated the procedure well and was sent to the recovery room in stable condition. At the end of the case all counts were correct. MATTIE CHENEY MD January 08, 2019 08:53
[2019-01-08] MEDS: fentaNYL PF VIAL 100 MCG/2 ML VIAL IV PRN ×2 (08:56→09:34)
--- NOTE | 2019-01-08 08:58 | DISCH ---
DISCHARGE INSTRUCTIONS Condition on Discharge Condition on Discharge: Unstable Activity After Discharge Activity Instructions for Disc: Activity as tolerated Diet after Discharge Diet after Discharge: Regular Wound Incision Care Wound/Incision Care: Other, see below (keep portacath dressing clean and dry) Follow-Up Follow up with: Oncology MATTIE CHENEY MD January 08, 2019 08:58
[2019-01-08] MEDS ORDERED: traMADol 50 MG TABLET PO ONE ×2 (09:30)
[2019-01-08 09:45] VITALS: BP 134/68
--- NOTE | 2019-01-08 10:31 | RAD ---
Portable chest, 01/08/2019: HISTORY: Port-A-Cath placement A left Port-A-Cath is in place extending into the right atrium. There is a prominent epicardial fat pad on the right. The heart is probably within normal limits in size. The pulmonary vascularity is normal. No pulmonary infiltrate is seen. There is no evidence of pneumothorax or pleural fluid. IMPRESSION: 1. The left Port-A-Cath extends into the right atrium. 2. No acute abnormality is detected. Electronically signed by: Dick Singh MD (01/08/2019 10:28 AM) [facility]
== END 2019-01-08 10:10 | disposition home or self-care (01) ==
LOC: SURG 05:54
PROVIDERS: ATTEND Surgery
DX: C50.919 Malignant neoplasm of unspecified site of unspecified female breast (principal); Z88.0 Allergy status to penicillin; Z88.6 Allergy status to analgesic agent; Z91.018 Allergy to other foods; E11.9 Type 2 diabetes mellitus without complications; Z79.84 Long term (current) use of oral hypoglycemic drugs; Z79.899 Other long term (current) drug therapy
CPT/HCPCS: 36561; 71045; 76937; 77001; 82962; A7015; C1788; J1100; J1644; J1956; J2001; J2250; J2405; J2704; J3010; J3490; J7040; 36556

== ENCOUNTER → 2019-06-12 | Outpatient (CLI) | payer BC, OTHER ==
[2019-04-04 10:00] VITALS: BP 142/74
[~2019-06-12] MED LIST changes: +AMIT75TA PO; +ANAS1TAB47 PO; -GLIM1TAB2 PO; +GLIM1TAB3 PO; +MONT10TA49 PO; -MONT10TA9 PO
--- NOTE | 2019-06-12 16:19 | KCIC ---
EXAM: Dual energy x-ray absorptiometry (DEXA). HISTORY: Estrogen receptor positive breast cancer. Osteoporosis screening. COMPARISON: None. TECHNIQUE: Dual energy x-ray absorptiometry of the lumbar spine and left hip was performed. Calculation of bone mineral density based on standard deviations above or below the expected young adult normal value (T-score) was completed. FINDINGS: The average bone mineral density in the 1st through 4th lumbar vertebrae is 1.038 g/cmxcm, corresponding with a T-score of -0.1. The average total bone mineral density in the left hip is 0.868 g/cmxcm, corresponding with a T-score of -0.6. IMPRESSION: Normal bone mineral density. Note: Definitions established by the World Health Organization: 1. Normal: T-score is -1.0 or above. 2. Osteopenia: T-score is between -1.0 and -2.5 . 3. Osteoporosis: T-score is -2.5 or below. Electronically signed by: Cassia Escobedo MD (06/12/2019 4:15 PM) [id number]
== END | disposition home or self-care (01) ==
LOC: KCIC DEXA 15:02
PROVIDERS: ATTEND Internal Medicine Hematology & Oncology
DX: C50.411 Malignant neoplasm of upper-outer quadrant of right female breast (principal); Z17.0 Estrogen receptor positive status [ER+]
CPT/HCPCS: 77080

== ENCOUNTER 2019-11-05 17:58 | Emergency (ER) | payer BC, OTHER ==
[~2019-11-05] VITALS: Ht 162.6 cm; Wt 115.9 kg
[~2019-11-05 17:58] MED LIST changes: -GLIM1TAB3 PO; +GLIM1TAB7 PO
[2019-11-05] MEDS ORDERED: ONDANSETRON PF 4 MG/2 ML VIAL. IV ONE (19:00)
[2019-11-05] MEDS ORDERED: fentaNYL PF VIAL 100 MCG/2 ML VIAL IV ONE ×2 (19:00→22:00)
--- NOTE | 2019-11-05 19:17 | PHYS DOC ---
Past Medical History Past Medical History: Cancer, Depression, Diabetes-Type II, Fibromyalgia, GERD, Kidney Stone, Uterine Fibroids, Other Additional Past Medical Histor: HYPERLIPIDEMIA,HSV2,RENAL CELL CANCER, SLEEP APNEA, CRONIC FATGUE, Additional Past Surgical Histo: PARTIAL KEDNEY REMOVAL.RIGHT LEG BIOPSY,BILATERAL SHOULDER.KIDNEY STONE Smoking Status: Never Smoker Alcohol Use: None Drug Use: None Adult General Chief Complaint Chief Complaint: MECHANICAL FALL HPI HPI Patient is a 49 year old female who presents with after a fall what she was check in the mail. The patient states his happened prior to arrival after she got home. The patient states that she slept on a grade and fell on the ground. The patient is having pain to her left knee, right foot, left forearm karma light left hand which has a deformity, right-sided ribs, and her abdomen is diffusely tender. He last took pain medicine at 1 PM which gabapentin and tramadol. Rates her pain as 8 out of 10 in severity. Complete ROS were reviewed and found to be within normal limits, except as documented in the HPI Current Medications Current Medications Current Medications Medications (Trade) Dose Ordered Sig/William Start Time Stop Time Status Last Admin Dose Admin Fentanyl Citrate (Fentanyl 2ml Vial) 75 mcg 1X ONCE 11/05/19 19:00 11/05/19 19:01 DC 11/05/19 20:01 75 MCG Info (CONTRAST GIVEN -- Rx MONITORING) 1 each PRN DAILY PRN 11/05/19 20:15 11/07/19 20:14 Iohexol (Omnipaque 300 Mg/ml) 75 ml 1X ONCE 11/05/19 20:15 11/05/19 20:16 DC Ondansetron HCl (Zofran) 4 mg 1X ONCE 11/05/19 19:00 11/05/19 19:01 DC 11/05/19 20:00 4 MG Allergies Allergies Allergies Coded Allergies Type Severity Reaction Last Updated Verified mushroom Allergy Severe RESPIRATORY PROBLEM (SOB ETC.) 04/04/19 Yes Penicillins Allergy Intermediate ITCH 04/04/19 Yes acetaminophen Allergy Intermediate 04/04/19 Yes Physical Exam Physical Exam Constitutional: Well developed, well nourished, no acute distress, non-toxic appearance. [] HENT: Normocephalic, atraumatic, bilateral external ears normal, oropharynx moist, no oral exudates, nose normal. [] Eyes: PERRLA, EOMI, conjunctiva normal, no discharge. [] Neck: Normal range of motion, no tenderness, supple, no stridor. [] Cardiovascular:Heart rate regular rhythm, no murmur [] Lungs & Thorax: Bilateral breath sounds clear to auscultation [] Abdomen: Bowel sounds normal, soft, diffuse tendereness, no masses, no pulsatile masses. [] Skin: Warm, dry, no erythema, no rash. [] Back: No tenderness, no CVA tenderness. [] Extremities: Tenderness to R foot, L forearm , L knee, R ribs with chest pain, L hand with deformity to 5th digit. Neurologic: Alert and oriented X 3, normal motor function, normal sensory function, no focal deficits noted. [] Psychologic: Affect normal, judgement normal, mood normal. [] Current Patient Data Vital Signs Vital Signs Date Time Temp Pulse Resp B/P (MAP) Pulse Ox O2 Delivery O2 Flow Rate FiO2 11/05/19 20:06 94 15 161/87 (111) 99 Room Air 11/05/19 18:15 98.4 98.4 Lab Values Laboratory Tests Test 11/05/19 20:10 White Blood Count 13.4 x10^3/uL (4.0-11.0) H Red Blood Count 4.60 x10^6/uL (3.50-5.40) Hemoglobin 12.8 g/dL (12.0-15.5) Hematocrit 39.0 % (36.0-47.0) Mean Corpuscular Volume 85 fL (79-100) Mean Corpuscular Hemoglobin 28 pg (25-35) Mean Corpuscular Hemoglobin Concent 33 g/dL (31-37) Red Cell Distribution Width 14.0 % (11.5-14.5) Platelet Count 223 x10^3/uL (140-400) Neutrophils (%) (Auto) 70 % (31-73) Lymphocytes (%) (Auto) 22 % (24-48) L Monocytes (%) (Auto) 5 % (0-9) Eosinophils (%) (Auto) 3 % (0-3) Basophils (%) (Auto) 1 % (0-3) Neutrophils # (Auto) 9.4 x10^3/uL (1.8-7.7) H Lymphocytes # (Auto) 2.9 x10^3/uL (1.0-4.8) Monocytes # (Auto) 0.6 x10^3/uL (0.0-1.1) Eosinophils # (Auto) 0.4 x10^3/uL (0.0-0.7) Basophils # (Auto) 0.1 x10^3/uL (0.0-0.2) Prothrombin Time 12.9 SEC (11.7-14.0) Prothrombin Time INR 1.0 (0.8-1.1) Activated Partial Thromboplast Time 27 SEC (24-38) Sodium Level 141 mmol/L (136-145) Potassium Level 3.5 mmol/L (3.5-5.1) Chloride Level 102 mmol/L (98-107) Carbon Dioxide Level 25 mmol/L (21-32) Anion Gap 14 (6-14) Blood Urea Nitrogen 15 mg/dL (7-20) Creatinine 0.7 mg/dL (0.6-1.0) Estimated GFR (Cockcroft-Gault) 89.7 BUN/Creatinine Ratio 21 (6-20) H Glucose Level 128 mg/dL (70-99) H Calcium Level 9.5 mg/dL (8.5-10.1) Total Bilirubin 0.3 mg/dL (0.2-1.0) Aspartate Amino Transferase (AST) 21 U/L (15-37) Alanine Aminotransferase (ALT) 32 U/L (14-59) Alkaline Phosphatase 161 U/L (46-116) H Total Protein 7.5 g/dL (6.4-8.2) Albumin 3.7 g/dL (3.4-5.0) Albumin/Globulin Ratio 1.0 (1.0-1.7) Laboratory Tests 11/05/19 20:10 Laboratory Tests 11/05/19 20:10 EKG EKG [] Radiology/Procedures Radiology/Procedures Performed a digital block on the left fifth digit with 1 mL of lidocaine on both sides of finger. Cleaned finger with Iodine before block. After numbing patient. Relocated bone and then placed splint on finger. [facility] [address] [place] [address] IMAGING REPORT Signed PATIENT: TRESA PAYAN LACCOUNT: [id number] : 1970 LOCATION: ER AGE: 49 SEX: F EXAM STATUS: REG ER ORD. PHYSICIAN: BETTY HAN APRN REASON: fall PROCEDURE: CT ABD PELV W/ IV CONTRST ONLY Exam: CT of abdomen and pelvis with contrast INDICATION: Fall TECHNIQUE: Sequential axial images through the abdomen and pelvis obtained following the administration of 75 mL of Omni 300 IV contrast. Sagittal and coronal reformatted images were reconstructed from the axial data and reviewed. Comparisons: None FINDINGS: Heart size is normal. No pericardial effusion. Visualized lung bases are clear. No pleural effusion. There is diffuse hepatic steatosis. Spleen, pancreas, gallbladder and adrenals are unremarkable. Kidneys demonstrate symmetric enhancement. No perinephric inflammation or hydronephrosis. No renal or ureteral calculi are identified. Bladder is distended and appears thin-walled. Uterus is not enlarged. No abnormal adnexal mass. Large and small bowel are unremarkable appendix is normal. No free intra-abdominal air or fluid. Abdominal aorta has a normal course and caliber. Abdominal vasculature is patent. No enlarged abdominal lymph nodes are identified. No suspicious osseous lesions or acute fractures. IMPRESSION: No sequela of acute traumatic injury identified within the abdomen or pelvis. Exposure: One or more of the following in the visualized dose reduction techniques were utilized for this examination: 1. Automated exposure control 2. Adjustment of the MA and/or KV according to patient size 3. Use of iterative of reconstructive technique Electronically signed by: Jordana Bone MD (11/05/2019 9:20 PM) [id number] DICTATED and SIGNED BY: JORDANA BONE MD DATE: 11/05/192119 [][facility] [address] [place] [address] IMAGING REPORT Signed PATIENT: TRESA PAYANOUNT: [id number] : 1970 LOCATION: ER AGE: 49 SEX: F EXAM STATUS: REG ER ORD. PHYSICIAN: BETTY HAN APRN REASON: fall. right foot pain PROCEDURE: FOOT RIGHT 3V 3 view left hand HISTORY: Pain status post fall AP lateral oblique views left hand There is a horizontal fractures of the base of the little finger with half shaft width anterior displacement and posterior angulation. The remaining visualized osseous structures appear intact. IMPRESSION: Acute traumatic fracture of the base of the little finger.-Impression Two-view left forearm AP lateral views The visualized osseous structures appear normal. IMPRESSION: No acute findings. Three-view right foot: AP lateral oblique views The visualized osseous structures appear normal. IMPRESSION: No acute findings. End impression Ribs left with PA chest History: Pain PA view of the chest and dedicated views of the left ribs were obtained. The heart and pulmonary vessels appear normal. The opacities lung bases likely chronic. The visualized osseous structures appear intact. Impression: No acute findings. No evidence of a bony displaced rib fracture. End impression 3 views left knee AP lateral oblique The visualized osseous structures appear normal. IMPRESSION: No acute findings. See 3 views left hand Electronically signed by: Saul Adler III, MD (11/05/2019 8:19 PM) [id number] DICTATED and SIGNED BY: SAUL ADLER III, MD DATE: 11/05/192018 Course & Med Decision Making Course & Med Decision Making Pertinent Labs and Imaging studies reviewed. (See chart for details) Will get labs, imaging, and give supportive care. Labs are unremarkable for acute changes. There is a horizontal fractures of the base of the little finger with half shaft width anterior displacement and posterior angulation. The remaining visualized osseous structures appear intact. IMPRESSION: Acute traumatic fracture of the base of the little finger.-Impression Relocated finger. See procedure note. CT scan is unremarkable. Will d/c home on Oxycodone. Will have follow up with Ortho. Will have placed in ERIN wrap and she will use her cane to help with ambulation. Dragon Disclaimer Dragon Disclaimer This electronic medical record was generated, in whole or in part, using a voice recognition dictation system. Departure Departure Impression: Primary Impression: Proximal phalanx fracture of finger Additional Impression: Fall Disposition: 01 HOME, SELF-CARE Condition: STABLE Referrals: CHON PRECIADO APRN (PCP) CHANTE ROACH II, MD Additional Instructions: Thank you for visiting [facility]. We appreciate you trusting us with your care. If any additional problems come up don't hesitate to return to visit us. Please follow up with your primary care provider so they can plan ad ditional care if needed and know about the problem that you had. If symptoms worsen come back to the Emergency Department. Any concerning symptoms that start such as chest pain, shortness of air, weakness or numbness on one side of the body, running high fevers or any other concerning symptoms return to the ER. Please follow up with Ortho for further management. Scripts Oxycodone Hcl (OXYCODONE HCL) 5 Mg Capsule 5 MG PO PRN Q6HRS PRN for PAIN for 3 Days, #10 TAB 0 Refills Prov: BETTY HAN APRN 11/05/19 Problem Qualifiers Primary Impression: Proximal phalanx fracture of finger Encounter type: initial encounter Finger: little finger Fracture type: closed Fracture alignment: displaced Laterality: left Qualified Codes: S62.617A - Displaced fracture of proximal phalanx of left little finger, initial encounter for closed fracture Additional Impression: Fall Encounter type: initial encounter Qualified Codes: W19.XXXA - Unspecified fall, initial encounter BETTY HAN APRN Nov 05, 2019 19:17
[2019-11-05] MEDS ORDERED: IOHEXOL 300 MG/ML 100ML VIAL. IV ONE (20:15)
[2019-11-05] MEDS ORDERED: CONTRAST GIVEN. MC PRN (20:15)
--- NOTE | 2019-11-05 20:22 | RAD ---
3 view left hand HISTORY: Pain status post fall AP lateral oblique views left hand There is a horizontal fractures of the base of the little finger with half shaft width anterior displacement and posterior angulation. The remaining visualized osseous structures appear intact. IMPRESSION: Acute traumatic fracture of the base of the little finger.-Impression Two-view left forearm AP lateral views The visualized osseous structures appear normal. IMPRESSION: No acute findings. Three-view right foot: AP lateral oblique views The visualized osseous structures appear normal. IMPRESSION: No acute findings. End impression Ribs left with PA chest History: Pain PA view of the chest and dedicated views of the left ribs were obtained. The heart and pulmonary vessels appear normal. The opacities lung bases likely chronic. The visualized osseous structures appear intact. Impression: No acute findings. No evidence of a bony displaced rib fracture. End impression 3 views left knee AP lateral oblique The visualized osseous structures appear normal. IMPRESSION: No acute findings. See 3 views left hand Electronically signed by: Shawn Bradley III, MD (11/05/2019 8:19 PM) [id number]
[2019-11-05 20:27] LABS: BASO # 0.1 x10^3/uL (0.0-0.2); BASO % 1 % (0-3); EOS # 0.4 x10^3/uL (0.0-0.7); EOS % 3 % (0-3); HEMOGLOBIN 12.8 g/dL (12.0-15.5); LYMPH # 2.9 x10^3/uL (1.0-4.8); LYMPH % 22 % (24-48); MEAN CORPUSCULAR HEMOGLOBIN 28 pg (25-35); MEAN CORPUSCULAR HGB CONC 33 g/dL (31-37); MEAN CORPUSCULAR VOLUME 85 fL (79-100); MONO # 0.6 x10^3/uL (0.0-1.1); MONO % 5 % (0-9); NEUT # 9.4 x10^3/uL (1.8-7.7); NEUT % 70 % (31-73); PLATELET COUNT 223 x10^3/uL (140-400); WHITE BLOOD COUNT 13.4 x10^3/uL (4.0-11.0)
[2019-11-05 20:36] LABS: PROTHROMBIN TIME PATIENT 12.9 SEC (11.7-14.0)
[2019-11-05 20:37] LABS: CALCIUM 9.5 mg/dL (8.5-10.1); CREATININE 0.7 mg/dL (0.6-1.0); GFR 89.7; POTASSIUM 3.5 mmol/L (3.5-5.1)
[2019-11-05 20:42] LABS: ALBUMIN 3.7 g/dL (3.4-5.0); TOTAL BILIRUBIN 0.3 mg/dL (0.2-1.0); TOTAL PROTEIN 7.5 g/dL (6.4-8.2)
--- NOTE | 2019-11-05 21:23 | RAD ---
Exam: CT of abdomen and pelvis with contrast INDICATION: Fall TECHNIQUE: Sequential axial images through the abdomen and pelvis obtained following the administration of 75 mL of Omni 300 IV contrast. Sagittal and coronal reformatted images were reconstructed from the axial data and reviewed. Comparisons: None FINDINGS: Heart size is normal. No pericardial effusion. Visualized lung bases are clear. No pleural effusion. There is diffuse hepatic steatosis. Spleen, pancreas, gallbladder and adrenals are unremarkable. Kidneys demonstrate symmetric enhancement. No perinephric inflammation or hydronephrosis. No renal or ureteral calculi are identified. Bladder is distended and appears thin-walled. Uterus is not enlarged. No abnormal adnexal mass. Large and small bowel are unremarkable appendix is normal. No free intra-abdominal air or fluid. Abdominal aorta has a normal course and caliber. Abdominal vasculature is patent. No enlarged abdominal lymph nodes are identified. No suspicious osseous lesions or acute fractures. IMPRESSION: No sequela of acute traumatic injury identified within the abdomen or pelvis. Exposure: One or more of the following in the visualized dose reduction techniques were utilized for this examination: 1. Automated exposure control 2. Adjustment of the MA and/or KV according to patient size 3. Use of iterative of reconstructive technique Electronically signed by: Jordana Overton MD (11/05/2019 9:20 PM) [id number]
[2019-11-05 21:30] VITALS: BP 145/65
[2019-11-05] MEDS ORDERED: OXYC5CAP PO (21:32)
[2019-11-05] MEDS ORDERED: DIPH,PERTUSS(ACELL),TET VAC/PF 0.5 ML SYRINGE. VAX IM ONE (22:00)
== END 2019-11-05 22:06 | disposition home or self-care (01) ==
LOC: ER 17:58
DX: S62.617A Displaced fracture of proximal phalanx of left little finger, initial encounter for closed fracture (principal); M25.562 Pain in left knee; M79.671 Pain in right foot; M79.632 Pain in left forearm; E11.9 Type 2 diabetes mellitus without complications; M79.7 Fibromyalgia; K21.9 Gastro-esophageal reflux disease without esophagitis; F32.9 Major depressive disorder, single episode, unspecified; Z87.442 Personal history of urinary calculi; Z98.890 Other specified postprocedural states; Z85.89 Personal history of malignant neoplasm of other organs and systems; Z91.018 Allergy to other foods; Z88.0 Allergy status to penicillin; Z88.6 Allergy status to analgesic agent; W01.0XXA Fall on same level from slipping, tripping and stumbling without subsequent striking against object, initial encounter; Y93.89 Activity, other specified; Y92.89 Other specified places as the place of occurrence of the external cause; Y99.8 Other external cause status
CPT/HCPCS: 26770; 36415; 71101; 73090; 73130; 73562; 73630; 74177; 80053; 85025; 85610; 85730; 90471; 90715; 96374; 96375; 96376; 99285; J2405; J3010; Q9967

== ENCOUNTER 2020-11-12 11:06 | Observation (INO) | payer BC ==
[~2020-11-12] VITALS: Ht 162.6 cm; Wt 194.0 kg
[~2020-11-12 11:06] MED LIST changes: +OXYC5CAP PO
--- NOTE | 2020-11-12 13:59 | PHYS DOC ---
Past Medical History Past Medical History: Cancer, Depression, Diabetes-Type II, Fibromyalgia, GERD, Kidney Stone, Uterine Fibroids, Other Additional Past Medical Histor: HYPERLIPIDEMIA,HSV2,RENAL CELL CANCER, SLEEP APNEA, CRONIC FATGUE, Additional Past Surgical Histo: PARTIAL KEDNEY REMOVAL.RIGHT LEG BIO PSY,BILATERAL SHOULDER.KIDNEY STONE Smoking Status: Never Smoker Alcohol Use: None Drug Use: None General Adult EDM: Chief Complaint: SHORTNESS OF BREATH HPI: HPI: This is a pleasant 50-year-old female who presents emergency department today primarily with nausea vomiting abdominal pain generalized muscle aches with a cough shortness of breath on exertion. She describes that this mostly started within the past 24 hours. Her pain in her abdomen is in the epigastrium which is nonradiating without alleviating factors. She has a throbbing aching pain generalized throughout her musculature and she has felt some chills at home. She denies chest pain at this time but has exertional dyspnea. On arrival she is tachycardic oxygenating on room air well. Review of systems negative for rash. Positive for shortness of breath. Positive for abdominal pain. Positive for vomiting. Positive for myalgias. Negative for nuchal rigidity. She denies focal neurologic deficits. All other review of systems negative. ED course: 50-year-old female presenting with nausea vomiting abdominal pain with shortness of breath. On arrival the patient is tachycardic at 130 with increased respiratory rate. She is a low-grade temperature of 99.5. IV established. IV fluids initiated. Labs obtained. CBC shows a normal white blood cell count. Hemoglobin within normal limits. Chemistry panel shows elevated glucose of 250. Otherwise troponin and proBNP within normal limits. Not . Urine analysis shows positive nitrites with glucose urea and elevated specific gravity. IV Levaquin given given the patient's penicillin allergy. Influenza testing is negative. CT angiogram unfortunately was nondiagnostic so I ordered a VQ scan. In the interim we will cover with 1 dose of Lovenox to cover for potential PE. 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 We will admit the patient to the hospitalist team for further evaluation treatment and care. I have placed a consult for GI and cardiology. Basic bridge orders placed. Heart Score: C/O Chest Pain: No Risk Factors: Risk Factors: DM, Current or recent (<one month) smoker, HTN, HLP, family history of CAD, obesity. Risk Scores: Score 0 - 3: 2.5% MACE over next 6 weeks - Discharge Home Score 4 - 6: 20.3% MACE over next 6 weeks - Admit for Clinical Observation Score 7 - 10: 72.7% MACE over next 6 weeks - Early Invasive Strategies Current Medications: Current Medications Medications (Trade) Dose Ordered Sig/William Start Time Stop Time Status Last Admin Dose Admin Hydromorphone HCl (Dilaudid) 0.5 mg 1X ONCE 11/12/20 14:00 11/12/20 14:01 Ondansetron HCl (Zofran) 4 mg 1X ONCE 11/12/20 14:00 11/12/20 14:01 Sodium Chloride 1,000 ml @ 1,000 mls/hr Q1H ONCE 11/12/20 14:00 11/12/20 14:59 Allergies: Allergies: Allergies Coded Allergies Type Severity Reaction Last Updated Verified mushroom Allergy Severe RESPIRATORY PROBLEM (SOB ETC.) 04/04/19 Yes Penicillins Allergy Intermediate ITCH 04/04/19 Yes acetaminophen Allergy Intermediate 04/04/19 Yes Physical Exam: PE: Constitutional: Well developed, well nourished, no acute distress, non-toxic appearance. [] HENT: Normocephalic, atraumatic, bilateral external ears normal, oropharynx moist, no oral exudates, nose normal. [] Eyes: PERRLA, EOMI, conjunctiva normal, no discharge. [] Neck: Normal range of motion, no tenderness, supple, no stridor. [] Negative for density sign. Negative Kernig sign. Cardiovascular: Tachycardic with regular rhythm, no murmur [] Lungs & Thorax: Bilateral breath sounds clear to auscultation no wheezing. Abdomen: Bowel sounds normal, soft, no tenderness, no masses, no pulsatile masses. Nondistended. No rebound tenderness or guarding. Skin: Warm, dry, no erythema, no rash. [] Back: No tenderness, no CVA tenderness. [] Extremities: No tenderness, no cyanosis, no clubbing, ROM intact, no edema. [] Neurologic: Alert and oriented X 3, normal motor function, normal sensory function, no focal deficits noted. [] Psychologic: Affect normal, judgement normal, mood normal. [] Current Patient Data: Vital Signs: Vital Signs Date Time Temp Pulse Resp B/P (MAP) Pulse Ox O2 Delivery O2 Flow Rate FiO2 11/12/20 12:20 99.5 119 24 144/87 (106) 97 Room Air 99.5 EKG: EKG: [] EKG shows sinus tachycardia. ST segments congruent. Not suggestive of acute ischemia. Intervals within normal limits. Radiology/Procedures: Radiology/Procedures: [] Course & Med Decision Making: Course & Med Decision Making Pertinent Labs and Imaging studies reviewed. (See chart for details) [] Dragon Disclaimer: Dragon Disclaimer: This electronic medical record was generated, in whole or in part, using a voice recognition dictation system. Departure Departure Impression: Primary Impression: Nausea & vomiting Additional Impression: Sinus tachycardia Disposition: 09 ADMITTED INPT THIS HOSP Admitting Physician: ESTHER Condition: STABLE Referrals: CHON PRECIADO APRN (PCP) SABA LONGORIA MD Nov 12, 2020 13:59
[2020-11-12] MEDS ORDERED: HYDROmorphone 2 MG/ML VIAL IM ONE (14:00)
[2020-11-12] MEDS ORDERED: ONDANSETRON PF 4 MG/2 ML VIAL. IV ONE (14:00)
[2020-11-12] MEDS ORDERED: IV NORMAL SALINE 1000ML BAG 1,000 ML IV ONE ×2 (14:00→16:15)
--- NOTE | 2020-11-12 14:08 | RAD ---
XR CHEST 1V History: Reason: cough / Spl. Instructions: / History: Comparison: November 05, 2019 Findings: No consolidation or pleural effusion. Normal heart size. No pneumothorax. Chronic deformity of the ri ght distal clavicle, unchanged. Impression: 1. No acute cardiopulmonary process. Electronically signed by: Gianfranco Clark DO (11/12/2020 2:05 PM) [facility]
[2020-11-12 14:53] LABS: BASO % 0 % (0-3); EOS # 0.2 x10^3/uL (0.0-0.7); EOS % 2 % (0-3); HEMATOCRIT 40.4 % (36.0-47.0); HEMOGLOBIN 13.3 g/dL (12.0-15.5); LYMPH # 0.6 x10^3/uL (1.0-4.8); LYMPH % 8 % (24-48); MEAN CORPUSCULAR HEMOGLOBIN 28 pg (25-35); MEAN CORPUSCULAR HGB CONC 33 g/dL (31-37); MEAN CORPUSCULAR VOLUME 86 fL (79-100); MONO # 0.3 x10^3/uL (0.0-1.1); MONO % 4 % (0-9); NEUT % 86 % (31-73); PLATELET COUNT 178 x10^3/uL (140-400); RED CELL DISTRIBUTION WIDTH 14.1 % (11.5-14.5); WHITE BLOOD COUNT 8.2 x10^3/uL (4.0-11.0)
[2020-11-12 14:55] LABS: BILIRUBIN,URINE NEGATIVE (NEG); CLARITY,URINE CLEAR; COLOR,URINE YELLOW; NITRITE,URINE POSITIVE (NEG); PROTEIN,URINE NEGATIVE (NEG-TRACE); UROBILINOGEN,URINE 0.2 mg/dL (0.2 mg/dL)
[2020-11-12 15:11] LABS: PREG TEST PT QUAL NEGATIVE (NEG)
[2020-11-12 15:15] LABS: CALCIUM 8.7 mg/dL (8.5-10.1); CREATININE 0.9 mg/dL (0.6-1.0); GFR 66.8; POTASSIUM 3.5 mmol/L (3.5-5.1)
[2020-11-12 15:18] LABS: % BASOS 1 % (0-3); % LYMPHS 4 % (24-48); % MONOS 1 % (0-10); % SEGS 94 % (35-66)
[2020-11-12 15:19] LABS: PLT ESTIMATE ADEQUATE (ADEQUATE)
[2020-11-12 15:21] LABS: BACTERIA,URINE FEW /HPF (0-FEW); RBC,URINE RARE /HPF (0-2)
[2020-11-12 15:21] LABS: ALBUMIN 3.5 g/dL (3.4-5.0); TOTAL BILIRUBIN 0.6 mg/dL (0.2-1.0)
[2020-11-12 15:30] LABS: INFLUENZA A PATIENT NEGATIVE (NEGATIVE); INFLUENZA B PATIENT NEGATIVE (NEGATIVE)
[2020-11-12] MEDS ORDERED: IOHEXOL 350 MG/ML 100 ML VIAL. IV ONE (15:30)
[2020-11-12] MEDS ORDERED: IOHEXOL 350 MG/ML 100 ML VIAL. ONE (15:33)
[2020-11-12] MEDS ORDERED: CONTRAST GIVEN. MC PRN (15:45)
--- NOTE | 2020-11-12 15:49 | EKG ---
[facility] [address] [place] [address] Test Date: 2020-11-12 Test Time: 14:03:13 Pat Name: TRESA PAYAN Department: Room: Gender: F [employer]: : 1970 Requested By: SABA LONGORIA Order Number: [id number] Reading MD: Measurements Intervals [place] Rate: 122 P: -90 [place]: 112 QRS: 32 QRSD: 80 T: 62 QT: 356 QTc: 509 Interpretive Statements SINUS TACHYCARDIA QRS(T) CONTOUR ABNORMALITY CONSIDER ANTEROSEPTAL INFARCT POSSIBLY ABNORMAL ECG RI6.02 No previous ECG available for comparison
--- NOTE | 2020-11-12 16:15 | RAD ---
CTA CHEST_ABDOMEN_AND PELVIS History: Shortness of breath. Nausea vomiting. Abdominal pain. Technique: CT of the chest, abdomen and pelvis were performed with intravenous contrast. Coronal and sagittal reconstructions were performed. Exposure: One or more of the following individualized dose reduction techniques were utilized for thi s examination: 1. Automated exposure control 2. Adjustment of the mA and/or kV according to patient size 3. Use of iterative reconstruction technique. Comparison: December 25, 2018 and November 05, 2019 Findings: Chest: Nondiagnostic evaluation of the pulmonary arteries due to contrast bolus timing. No aortic aneurysm or dissection. Coronary artery calcification. No pathologic lymphadenopathy. No co nsolidation or pleural effusion. No pneumothorax. Abdomen and pelvis: Hepatic steatosis. Right posterior upper abdominal fat containing hernia, unchang ed. The spleen, adrenal glands, pancreas and gallbladder are unremarkable. No biliary ductal dilatati on. Tiny left inferior renal hypodensity, likely cyst although too small to further characterize. No hydr onephrosis. No renal calculi. Decompressed urinary bladder. Normal appendix. No evidence of bowel obstruction. Small fat-containing umbilical hernia. Multiple small mesenteric lymph nodes, increased compared to prior. Mild irma mesentery, increased c ompared to prior. No ascites. Mild atheromatous plaque. Bones: No pathologic osseous lesions. Impression: Chest CT: 1. Nondiagnostic evaluation of the pulmonary arteries. If persistent clinical concern recommend foll ow-up or VQ scan. 2. Otherwise, no acute intrathoracic pathology. Abdomen and pelvis CT: 1. 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 Recommend follow-up. 2. Hepatic steatosis. Electronically signed by: Gianfranco Clark DO (11/12/2020 4:12 PM) [facility]
[2020-11-12] MEDS ORDERED: IV NORMAL SALINE 1000ML BAG 1,000 ML IV SCH (16:45)
--- NOTE | 2020-11-12 17:45 | RAD ---
NM LUNG PERFUSION SCAN History:Reason: Shortness of breath r/o pe / Spl. Instructions: no vent during covid per radiologist / History: Comparison: CT November 12, 2020 Findings: Perfusion examination was performed. Ventilation images not obtained due to Covid protocol. Perfusion images were acquired after the patient was injected with 5.5 mCi of technetium 99m MAA. No perfusion defect identified. Impression: 1. Low probability for pulmonary embolic disease. Electronically signed by: Gianfranco Clark DO (11/12/2020 5:42 PM) [facility]
[2020-11-12 19:00] VITALS: BP 141/85
--- NOTE | 2020-11-12 19:59 | NUR ---
The patient, TRESA PAYAN, 50 y/o, F admitted by ELLA BIRMINGHAM MD, was given written information regarding hospital policies, unit procedures and contact persons. Valuables were checked and left with her.
[2020-11-12 22:47] VITALS: BP 156/79
[2020-11-13 02:52] VITALS: BP 149/88
[2020-11-13 07:00] VITALS: BP 149/80
[2020-11-13 07:00] LABS: BASO % 1 % (0-3); EOS # 0.1 x10^3/uL (0.0-0.7); EOS % 3 % (0-3); HEMATOCRIT 35.5 % (36.0-47.0); HEMOGLOBIN 11.9 g/dL (12.0-15.5); LYMPH % 22 % (24-48); MEAN CORPUSCULAR HEMOGLOBIN 29 pg (25-35); MEAN CORPUSCULAR HGB CONC 34 g/dL (31-37); MEAN CORPUSCULAR VOLUME 86 fL (79-100); MONO # 0.4 x10^3/uL (0.0-1.1); MONO % 10 % (0-9); NEUT # 2.9 x10^3/uL (1.8-7.7); NEUT % 65 % (31-73); PLATELET COUNT 135 x10^3/uL (140-400); RED BLOOD COUNT 4.14 x10^6/uL (3.50-5.40); RED CELL DISTRIBUTION WIDTH 14.2 % (11.5-14.5); WHITE BLOOD COUNT 4.5 x10^3/uL (4.0-11.0)
[2020-11-13 07:13] LABS: ALBUMIN/GLOBULIN RATIO 0.8 (1.0-1.7); CALCIUM 8.6 mg/dL (8.5-10.1); CREATININE 0.7 mg/dL (0.6-1.0); GFR 89.3; POTASSIUM 3.5 mmol/L (3.5-5.1); TOTAL BILIRUBIN 0.5 mg/dL (0.2-1.0); TOTAL PROTEIN 6.7 g/dL (6.4-8.2)
--- NOTE | 2020-11-13 07:48 | PDOC1 ---
History and Physical Date of Service: DOS: DATE: 11/13/20 TIME: 07:39 Chief Complaint: Chief Complain: Generalized muscle pains and shortness of breath History of Present Illness: HPI: Patient is a 50-year-old female with past medical history of diabetes mellitus type 2 uncontrolled last known HbA1c of about 12, fibromyalgia, depression, morbid obesity who comes in today because of nausea vomiting and shortness of breath. She also has some generalized muscle aches. She also said that she got the Covid vaccine recently. She describes her abdominal pain as epigastric and nonradiating eating without any alleviating factors. Denies any chest pain, diarrhea. When arrived in the ED she did have some tachycardia but is oxygenating well on room air. She did endorse some fevers at home. ED course: 50-year-old female presenting with nausea vomiting abdominal pain with shortness of breath. On arrival the patient is tachycardic at 130 with increased respiratory rate. She is a low-grade temperature of 99.5. IV established. IV fluids initiated. Labs obtained. CBC shows a normal white blood cell count. Hemoglobin within normal limits. Chemistry panel shows elevated glucose of 250. Otherwise troponin and proBNP within normal limits. Not . Urine analysis shows positive nitrites with glucose urea and elevated specific gravity. IV Levaquin given given the patient's penicillin allergy. Influenza testing is negative. CT angiogram unfortunately was nondiagnostic so I ordered a VQ scan. In the interim we will cover with 1 dose of Lovenox to cover for potential PE. 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 We will admit the patient to the hospitalist team for further evaluation treatment and care. I have placed a consult for GI and cardiology. Basic bridge orders placed. Past Medical/Surgical History: PMH/PSH: Past Medical History: Depression, Diabetes-Type II, Fibromyalgia, GERD, Kidney Stone, Uterine Fibroids, HYPERLIPIDEMIA,HSV2,RENAL CELL CANCER, SLEEP APNEA, CRONIC FATGUE, Past Surgical Histo: PARTIAL KEDNEY REMOVAL.RIGHT LEG BIOPSY,BILATERAL SHOULDER.KIDNEY STONE Allergies: Allergies: Coded Allergies: mushroom (Verified Allergy, Severe, RESPIRATORY PROBLEM (SOB ETC.), 04/04/19) Penicillins (Verified Allergy, Intermediate, ITCH, 04/04/19) acetaminophen (Verified Allergy, Intermediate, 04/04/19) Family History: Family History: Reviewed with no relevant history Social History: Social History: Smoking Status: Never Smoker Alcohol Use: None Drug Use: None Current Medications: Current Medications Current Medications Sodium Chloride 1,000 ml @ 1,000 mls/hr Q1H ONCE IV Last administered on 11/12/20at 14:22; Start 11/12/20 at 14:00; Stop 11/12/20 at 14:59; Status DC Hydromorphone HCl (Dilaudid) 0.5 mg 1X ONCE IM Last administered on 11/12/20at 14:27; Start 11/12/20 at 14:00; Stop 11/12/20 at 14:01; Status DC Ondansetron HCl (Zofran) 4 mg 1X ONCE IV Last administered on 11/12/20at 14:27; Start 11/12/20 at 14:00; Stop 11/12/20 at 14:01; Status DC Iohexol (Omnipaque 350 Mg/ml) 100 ml 1X ONCE IV Last administered on 11/12/20at 15:49; Start 11/12/20 at 15:30; Stop 11/12/20 at 15:32; Status DC Info (CONTRAST GIVEN -- Rx MONITORING) 1 each PRN DAILY PRN MC SEE COMMENTS; Start 11/12/20 at 15:45; Stop 11/14/20 at 15:44 Iohexol (Omnipaque 350 Mg/ml) 100 ml STK-MED ONCE .ROUTE ; Start 11/12/20 at 15:33; Stop 11/12/20 at 15:33; Status DC Sodium Chloride 1,000 ml @ 1,000 mls/hr 1X ONCE IV Last administered on 11/12/20at 16:56; Start 11/12/20 at 16:15; Stop 11/12/20 at 17:14; Status DC Enoxaparin Sodium (Lovenox 120mg Syringe) 120 mg 1X ONCE SQ Last administered on 11/12/20at 16:58; Start 11/12/20 at 16:30; Stop 11/12/20 at 16:31; Status DC Levofloxacin/ Dextrose 100 ml @ 100 mls/hr 1X ONCE IV Last administered on 11/12/20at 16:57; Start 11/12/20 at 16:30; Stop 11/12/20 at 17:29; Status DC Sodium Chloride 1,000 ml @ 125 mls/hr Q8H IV Last administered on 11/12/20at 16:56; Start 11/12/20 at 16:45; Stop 11/12/20 at 20:44; Status DC Active Scripts Active Oxycodone Hcl 5 Mg Capsule 5 Mg PO PRN Q6HRS PRN 3 Days Reported Arimidex (Anastrozole) 1 Mg Tablet 1 Mg PO DAILY Amitriptyline Hcl 75 Mg Tablet 75 Mg PO HS Gabapentin 600 Mg Tablet 600 Mg PO QHS Venlafaxine Hcl Er (Venlafaxine Hcl) 75 Mg Cap.er.24h 75 Mg PO BID Metformin Hcl 500 Mg Tablet 500 Mg PO BIDWMEALS Tramadol Hcl 50 Mg Tablet 50 Mg PO Q6HRS PRN Montelukast Sodium Tablet (Montelukast Sodium) 10 Mg Tablet 1 Tab PO DAILY Glimepiride 1 Mg Tablet 1 Tab PO BID Lovastatin 40 Mg Tablet 1 Tab PO QHS Cetirizine Hcl 10 Mg Tablet 1 Tab PO DAILY Ranitidine Hcl 150 Mg Tablet 1 Tab PO DAILY Propranolol Hcl 80 Mg Cap.sa.24h 120 Mg PO DAILY Gabapentin 300 Mg Capsule 300 Mg PO Q AM ROS: Review of Systems Review of System REVIEW OF SYSTEMS: GENERAL: Denies weakness SKIN: No bruising, hair changes or rashes. EYES: No blurred, double or loss of vision. NOSE AND THROAT: No history of nosebleeds, hoarseness or sore throat. HEART: No history of palpitations, chest pain or shortness of breath on exertion. LUNGS: Denies cough, hemoptysis, wheezing or shortness of breath. GASTROINTESTINAL: Denies changes in appetite, nausea, vomiting, diarrhea or constipation. GENITOURINARY: No history of frequency, urgency, hesitancy or nocturia. NEUROLOGIC: Denies history of numbness, tingling, or tremor. PSYCHIATRIC: No history of panic, anxiety or depression. ENDOCRINE: No history of heat or cold intolerance, polyuria or polydipsia. EXTREMITIES: Denies joint pain, pain on walking or stiffness. Physical Exam: Vital Signs: Vital Signs Date Time Temp Pulse Resp B/P (MAP) Pulse Ox O2 Delivery O2 Flow Rate FiO2 11/13/20 02:52 97.8 105 19 149/88 (108) 97 Room Air 97.8 Physcial Exam: GEN: No apparent distress. Alert and oriented HEENT: Normal cephalic, atraumatic, external auditory canals are patent EYES: Extraocular muscles are intact, pupil are equally round and reactive to light and accommodation MUSCULOSKELETAL: Well developed , well nourished, good range of motion ENDOCRINE: No thyromegaly was palpated LYMPHATICS: No cervical chain or axillary nodes were noted HEMATOPOIETIC: No bruising NECK: Supple, no JVD, no thyromegaly was noted LUNGS: Clear to auscultation in all lung de [place] without rhonchi or wheezing HEART: RRR, S!, S2 present. Peripheral pulses intact, no obvious murmurs noted ABDOMEN: Soft, nontender. Positive bowel sounds, no organomegaly, normal bowel sounds EXTREMITIES: Without clubbing, cyanosis, or edema. Pedal pulses intact. Negative Homans sign NEUROLOGIC: Normal speech and tone. A&O x 3, moves all extremities, no obvious focal deficits PSYCHIATRIC: Normal affect, normal mood. Stable SKIN: No ulcerations or rashes, good skin turgor, no jaundice VASCULAR: Good capillary refill, neurovascular bundle appears to be intact Labs: Labs: Laboratory Tests Test 11/12/20 13:47 11/12/20 14:15 11/12/20 14:38 11/13/20 06:00 Urine Collection Type Unknown Urine Color Yellow Urine Clarity Clear Urine pH 5.0 (<5.0-8.0) Urine Specific [place] >=1.030 (1.000-1.030) Urine Protein Negative mg/dL (NEG-TRACE) Urine Glucose (UA) >=1000 mg/dL (NEG) Urine Ketones (Stick) 15 mg/dL (NEG) Urine Blood Negative (NEG) Urine Nitrite Positive (NEG) Urine Bilirubin Negative (NEG) Urine Urobilinogen Dipstick 0.2 mg/dL (0.2 mg/dL) Urine Leukocyte Esterase Negative (NEG) Urine RBC Rare /HPF (0-2) Urine WBC 5-10 /HPF (0-4) Urine Squamous Epithelial Cells Few /LPF Urine Bacteria Few /HPF (0-FEW) Urine Mucus Slight /LPF White Blood Count 8.2 x10^3/uL (4.0-11.0) 4.5 x10^3/uL (4.0-11.0) Red Blood Count 4.70 x10^6/uL (3.50-5.40) 4.14 x10^6/uL (3.50-5.40) Hemoglobin 13.3 g/dL (12.0-15.5) 11.9 g/dL (12.0-15.5) Hematocrit 40.4 % (36.0-47.0) 35.5 % (36.0-47.0) Mean Corpuscular Volume 86 fL (79-100) 86 fL (79-100) Mean Corpuscular Hemoglobin 28 pg (25-35) 29 pg (25-35) Mean Corpuscular Hemoglobin Concent 33 g/dL (31-37) 34 g/dL (31-37) Red Cell Distribution Width 14.1 % (11.5-14.5) 14.2 % (11.5-14.5) Platelet Count 178 x10^3/uL (140-400) 135 x10^3/uL (140-400) Neutrophils (%) (Auto) 86 % (31-73) 65 % (31-73) Lymphocytes (%) (Auto) 8 % (24-48) 22 % (24-48) Monocytes (%) (Auto) 4 % (0-9) 10 % (0-9) Eosinophils (%) (Auto) 2 % (0-3) 3 % (0-3) Basophils (%) (Auto) 0 % (0-3) 1 % (0-3) Neutrophils # (Auto) 7.0 x10^3/uL (1.8-7.7) 2.9 x10^3/uL (1.8-7.7) Lymphocytes # (Auto) 0.6 x10^3/uL (1.0-4.8) 1.0 x10^3/uL (1.0-4.8) Monocytes # (Auto) 0.3 x10^3/uL (0.0-1.1) 0.4 x10^3/uL (0.0-1.1) Eosinophils # (Auto) 0.2 x10^3/uL (0.0-0.7) 0.1 x10^3/uL (0.0-0.7) Basophils # (Auto) 0.0 x10^3/uL (0.0-0.2) 0.0 x10^3/uL (0.0-0.2) Segmented Neutrophils % 94 % (35-66) Lymphocytes % 4 % (24-48) Monocytes % 1 % (0-10) Basophils % 1 % (0-3) Platelet Estimate Adequate (ADEQUATE) Sodium Level 139 mmol/L (136-145) 140 mmol/L (136-145) Potassium Level 3.5 mmol/L (3.5-5.1) 3.5 mmol/L (3.5-5.1) Chloride Level 98 mmol/L (98-107) 101 mmol/L (98-107) Carbon Dioxide Level 27 mmol/L (21-32) 28 mmol/L (21-32) Anion Gap 14 (6-14) 11 (6-14) Blood Urea Nitrogen 19 mg/dL (7-20) 15 mg/dL (7-20) Creatinine 0.9 mg/dL (0.6-1.0) 0.7 mg/dL (0.6-1.0) Estimated GFR (Cockcroft-Gault) 66.8 89.3 BUN/Creatinine Ratio 21 (6-20) 21 (6-20) Glucose Level 252 mg/dL (70-99) 263 mg/dL (70-99) Calcium Level 8.7 mg/dL (8.5-10.1) 8.6 mg/dL (8.5-10.1) Total Bilirubin 0.6 mg/dL (0.2-1.0) 0.5 mg/dL (0.2-1.0) Aspartate Amino Transf (AST/SGOT) 25 U/L (15-37) 22 U/L (15-37) Alanine Aminotransferase (ALT/SGPT) 37 U/L (14-59) 32 U/L (14-59) Alkaline Phosphatase 148 U/L (46-116) 124 U/L (46-116) Troponin I Quantitative < 0.017 ng/mL (0.000-0.055) WO-Dun-X-Type Natriuretic Peptide 25 pg/mL (0-124) Total Protein 7.0 g/dL (6.4-8.2) 6.7 g/dL (6.4-8.2) Albumin 3.5 g/dL (3.4-5.0) 3.0 g/dL (3.4-5.0) Albumin/Globulin Ratio 1.0 (1.0-1.7) 0.8 (1.0-1.7) Lipase 65 U/L (73-393) Serum Test, Qualitative Negative (NEG) Influenza Type A Antigen Negative (NEGATIVE) Influenza Type B Antigen Negative (NEGATIVE) Laboratory Tests Test 11/12/20 13:47 11/12/20 14:15 11/12/20 14:38 11/13/20 06:00 Urine Collection Type Unknown Urine Color Yellow Urine Clarity Clear Urine pH 5.0 (<5.0-8.0) Urine Specific [place] >=1.030 (1.000-1.030) Urine Protein Negative mg/dL (NEG-TRACE) Urine Glucose (UA) >=1000 mg/dL (NEG) Urine Ketones (Stick) 15 mg/dL (NEG) Urine Blood Negative (NEG) Urine Nitrite Positive (NEG) Urine Bilirubin Negative (NEG) Urine Urobilinogen Dipstick 0.2 mg/dL (0.2 mg/dL) Urine Leukocyte Esterase Negative (NEG) Urine RBC Rare /HPF (0-2) Urine WBC 5-10 /HPF (0-4) Urine Squamous Epithelial Cells Few /LPF Urine Bacteria Few /HPF (0-FEW) Urine Mucus Slight /LPF White Blood Count 8.2 x10^3/uL (4.0-11.0) 4.5 x10^3/uL (4.0-11.0) Red Blood Count 4.70 x10^6/uL (3.50-5.40) 4.14 x10^6/uL (3.50-5.40) Hemoglobin 13.3 g/dL (12.0-15.5) 11.9 g/dL (12.0-15.5) Hematocrit 40.4 % (36.0-47.0) 35.5 % (36.0-47.0) Mean Corpuscular Volume 86 fL (79-100) 86 fL (79-100) Mean Corpuscular Hemoglobin 28 pg (25-35) 29 pg (25-35) Mean Corpuscular Hemoglobin Concent 33 g/dL (31-37) 34 g/dL (31-37) Red Cell Distribution Width 14.1 % (11.5-14.5) 14.2 % (11.5-14.5) Platelet Count 178 x10^3/uL (140-400) 135 x10^3/uL (140-400) Neutrophils (%) (Auto) 86 % (31-73) 65 % (31-73) Lymphocytes (%) (Auto) 8 % (24-48) 22 % (24-48) Monocytes (%) (Auto) 4 % (0-9) 10 % (0-9) Eosinophils (%) (Auto) 2 % (0-3) 3 % (0-3) Basophils (%) (Auto) 0 % (0-3) 1 % (0-3) Neutrophils # (Auto) 7.0 x10^3/uL (1.8-7.7) 2.9 x10^3/uL (1.8-7.7) Lymphocytes # (Auto) 0.6 x10^3/uL (1.0-4.8) 1.0 x10^3/uL (1.0-4.8) Monocytes # (Auto) 0.3 x10^3/uL (0.0-1.1) 0.4 x10^3/uL (0.0-1.1) Eosinophils # (Auto) 0.2 x10^3/uL (0.0-0.7) 0.1 x10^3/uL (0.0-0.7) Basophils # (Auto) 0.0 x10^3/uL (0.0-0.2) 0.0 x10^3/uL (0.0-0.2) Segmented Neutrophils % 94 % (35-66) Lymphocytes % 4 % (24-48) Monocytes % 1 % (0-10) Basophils % 1 % (0-3) Platelet Estimate Adequate (ADEQUATE) Sodium Level 139 mmol/L (136-145) 140 mmol/L (136-145) Potassium Level 3.5 mmol/L (3.5-5.1) 3.5 mmol/L (3.5-5.1) Chloride Level 98 mmol/L (98-107) 101 mmol/L (98-107) Carbon Dioxide Level 27 mmol/L (21-32) 28 mmol/L (21-32) Anion Gap 14 (6-14) 11 (6-14) Blood Urea Nitrogen 19 mg/dL (7-20) 15 mg/dL (7-20) Creatinine 0.9 mg/dL (0.6-1.0) 0.7 mg/dL (0.6-1.0) Estimated GFR (Cockcroft-Gault) 66.8 89.3 BUN/Creatinine Ratio 21 (6-20) 21 (6-20) Glucose Level 252 mg/dL (70-99) 263 mg/dL (70-99) Calcium Level 8.7 mg/dL (8.5-10.1) 8.6 mg/dL (8.5-10.1) Total Bilirubin 0.6 mg/dL (0.2-1.0) 0.5 mg/dL (0.2-1.0) Aspartate Amino Transf (AST/SGOT) 25 U/L (15-37) 22 U/L (15-37) Alanine Aminotransferase (ALT/SGPT) 37 U/L (14-59) 32 U/L (14-59) Alkaline Phosphatase 148 U/L (46-116) 124 U/L (46-116) Troponin I Quantitative < 0.017 ng/mL (0.000-0.055) IY-Sre-Y-Type Natriuretic Peptide 25 pg/mL (0-124) Total Protein 7.0 g/dL (6.4-8.2) 6.7 g/dL (6.4-8.2) Albumin 3.5 g/dL (3.4-5.0) 3.0 g/dL (3.4-5.0) Albumin/Globulin Ratio 1.0 (1.0-1.7) 0.8 (1.0-1.7) Lipase 65 U/L (73-393) Serum Test, Qualitative Negative (NEG) Influenza Type A Antigen Negative (NEGATIVE) Influenza Type B Antigen Negative (NEGATIVE) Images: Images V/Q SCAN Impression: 1. Low probability for pulmonary embolic disease. CT ABD/CHEST Impression: Chest CT: 1. Nondiagnostic evaluation of the pulmonary arteries. If persistent clinical concern recommend follow-up or VQ scan. 2. Otherwise, no acute intrathoracic pathology. Abdomen and pelvis CT: 1. 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 Recommend follow-up. 2. Hepatic steatosis. 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
[2020-11-13] MEDS ORDERED: DEXTROSE 50% 25 GM / 50ML DISP.SYRIN. IV PRN (08:00)
[2020-11-13] MEDS ORDERED: ONDANSETRON PF 4 MG/2 ML VIAL. IVP PRN (08:00)
[2020-11-13] MEDS ORDERED: ACETAMINOPHEN 325 MG TABLET. PO PRN (08:00)
[2020-11-13] MEDS ORDERED: SENNOSIDES 8.6 MG TABLET PO PRN (08:00)
[2020-11-13] MEDS ORDERED: DOCUSATE SODIUM 100 MG CAPSULE. PO PRN (08:00)
--- NOTE | 2020-11-13 09:26 | PDOC2 ---
GI CONSULT Date of Service: DATE: 11/13/20 TIME: 09:25 Reason For Consult: n/v, abd pain HPI: HPI: 50 y/o female to ER yesterday and admitted. Ill since early Tue - insomnia, couldn't get comfortable, achey, then many episodes of vomiting. Made orange chicken and rice for dinner - roommates didn't get sick. Additionally reports some chest/back/abdomen aching since retching, possibly some SOA, possible fever, and swelling in legs. Had two loose really bad smelling stools yesterday, also bad smelling urine. Has tolerated water here w/o recurrent vomiting. Wants more to drink. Says she has a headache and isn't thinking clearly. Also mentions several times she has fibromyalgia. Wants home meds restarted. H/o GERD previously on H2 vera, recently no treatment except a pinch of marilyn christen soda here and there. No dysphagia. No chronic n/v or abd pain. Irregular bowel habits for awhile (several stools in a day, then nothing). No hematemesis, hematochezia, or melena. Good appetite, weight gain. EGD and colonoscopy many years ago - "so long ago not relevant." Scheduled for colonoscopy @ on Tuesday. Diverticulosis on imaging. No GB, liver, pancreas, or PUD history. No NSAIDs. Hepatic steatosis on imaging. Takes iron at home - "I've been low on vitamins since the pandemic started." Teacher x 21 years, currently at [employer]. PMH: PMH: DM, fibromyalgia, migraines, CALEB w/ CPAP, depression, breast and renal cancer, HSV, nephrolithiasis lithotripsy, partial nephrectomy, lumpectomy/radiation, hysterectomy FH: Family History: Cancer (vaginal, breast, liver, thyroid, melanoma) Social History: Smoke: No ALCOHOL: none Drugs: None ROS: GEN: +fever HEENT: Denies blurred vision, sore throat CV: +chest pain RESP: +SOA GI: Per HPI : +malodorous urine ENDO: +weight gain NEURO: Denies confusion, dizziness MSK: +fibromyalgia SKIN: Denies jaundice, pruritus Vitals: Vitals: Vital Signs Date Time Temp Pulse Resp B/P (MAP) Pulse Ox O2 Delivery O2 Flow Rate FiO2 11/13/20 07:00 97.6 101 19 149/80 (103) 100 Room Air 97.6 Labs: Labs: Laboratory Tests Test 11/12/20 13:47 11/12/20 14:15 11/12/20 14:38 11/13/20 06:00 Urine Collection Type Unknown Urine Color Yellow Urine Clarity Clear Urine pH 5.0 (<5.0-8.0) Urine Specific [place] >=1.030 (1.000-1.030) Urine Protein Negative mg/dL (NEG-TRACE) Urine Glucose (UA) >=1000 mg/dL (NEG) Urine Ketones (Stick) 15 mg/dL (NEG) Urine Blood Negative (NEG) Urine Nitrite Positive (NEG) Urine Bilirubin Negative (NEG) Urine Urobilinogen Dipstick 0.2 mg/dL (0.2 mg/dL) Urine Leukocyte Esterase Negative (NEG) Urine RBC Rare /HPF (0-2) Urine WBC 5-10 /HPF (0-4) Urine Squamous Epithelial Cells Few /LPF Urine Bacteria Few /HPF (0-FEW) Urine Mucus Slight /LPF White Blood Count 8.2 x10^3/uL (4.0-11.0) 4.5 x10^3/uL (4.0-11.0) Red Blood Count 4.70 x10^6/uL (3.50-5.40) 4.14 x10^6/uL (3.50-5.40) Hemoglobin 13.3 g/dL (12.0-15.5) 11.9 g/dL (12.0-15.5) Hematocrit 40.4 % (36.0-47.0) 35.5 % (36.0-47.0) Mean Corpuscular Volume 86 fL (79-100) 86 fL (79-100) Mean Corpuscular Hemoglobin 28 pg (25-35) 29 pg (25-35) Mean Corpuscular Hemoglobin Concent 33 g/dL (31-37) 34 g/dL (31-37) Red Cell Distribution Width 14.1 % (11.5-14.5) 14.2 % (11.5-14.5) Platelet Count 178 x10^3/uL (140-400) 135 x10^3/uL (140-400) Neutrophils (%) (Auto) 86 % (31-73) 65 % (31-73) Lymphocytes (%) (Auto) 8 % (24-48) 22 % (24-48) Monocytes (%) (Auto) 4 % (0-9) 10 % (0-9) Eosinophils (%) (Auto) 2 % (0-3) 3 % (0-3) Basophils (%) (Auto) 0 % (0-3) 1 % (0-3) Neutrophils # (Auto) 7.0 x10^3/uL (1.8-7.7) 2.9 x10^3/uL (1.8-7.7) Lymphocytes # (Auto) 0.6 x10^3/uL (1.0-4.8) 1.0 x10^3/uL (1.0-4.8) Monocytes # (Auto) 0.3 x10^3/uL (0.0-1.1) 0.4 x10^3/uL (0.0-1.1) Eosinophils # (Auto) 0.2 x10^3/uL (0.0-0.7) 0.1 x10^3/uL (0.0-0.7) Basophils # (Auto) 0.0 x10^3/uL (0.0-0.2) 0.0 x10^3/uL (0.0-0.2) Segmented Neutrophils % 94 % (35-66) Lymphocytes % 4 % (24-48) Monocytes % 1 % (0-10) Basophils % 1 % (0-3) Platelet Estimate Adequate (ADEQUATE) Sodium Level 139 mmol/L (136-145) 140 mmol/L (136-145) Potassium Level 3.5 mmol/L (3.5-5.1) 3.5 mmol/L (3.5-5.1) Chloride Level 98 mmol/L (98-107) 101 mmol/L (98-107) Carbon Dioxide Level 27 mmol/L (21-32) 28 mmol/L (21-32) Anion Gap 14 (6-14) 11 (6-14) Blood Urea Nitrogen 19 mg/dL (7-20) 15 mg/dL (7-20) Creatinine 0.9 mg/dL (0.6-1.0) 0.7 mg/dL (0.6-1.0) Estimated GFR (Cockcroft-Gault) 66.8 89.3 BUN/Creatinine Ratio 21 (6-20) 21 (6-20) Glucose Level 252 mg/dL (70-99) 263 mg/dL (70-99) Calcium Level 8.7 mg/dL (8.5-10.1) 8.6 mg/dL (8.5-10.1) Total Bilirubin 0.6 mg/dL (0.2-1.0) 0.5 mg/dL (0.2-1.0) Aspartate Amino Transf (AST/SGOT) 25 U/L (15-37) 22 U/L (15-37) Alanine Aminotransferase (ALT/SGPT) 37 U/L (14-59) 32 U/L (14-59) Alkaline Phosphatase 148 U/L (46-116) 124 U/L (46-116) Troponin I Quantitative < 0.017 ng/mL (0.000-0.055) KJ-Pno-Q-Type Natriuretic Peptide 25 pg/mL (0-124) Total Protein 7.0 g/dL (6.4-8.2) 6.7 g/dL (6.4-8.2) Albumin 3.5 g/dL (3.4-5.0) 3.0 g/dL (3.4-5.0) Albumin/Globulin Ratio 1.0 (1.0-1.7) 0.8 (1.0-1.7) Lipase 65 U/L (73-393) Serum Test, Qualitative Negative (NEG) Influenza Type A Antigen Negative (NEGATIVE) Influenza Type B Antigen Negative (NEGATIVE) Test 11/13/20 09:02 Glucose (Fingerstick) 279 mg/dL (70-99) Allergies: Coded Allergies: mushroom (Verified Allergy, Severe, RESPIRATORY PROBLEM (SOB ETC.), 04/04/19) Penicillins (Verified Allergy, Intermediate, ITCH, 04/04/19) acetaminophen (Verified Allergy, Intermediate, 04/04/19) Medications: Current Medications Medications (Trade) Dose Ordered Sig/William Route PRN Reason Start Time Stop Time Status Last Admin Dose Admin Sodium Chloride 1,000 ml @ 1,000 mls/hr Q1H ONCE IV 11/12/20 14:00 11/12/20 14:59 DC 11/12/20 14:22 Hydromorphone HCl (Dilaudid) 0.5 mg 1X ONCE IM 11/12/20 14:00 11/12/20 14:01 DC 11/12/20 14:27 Ondansetron HCl (Zofran) 4 mg 1X ONCE IV 11/12/20 14:00 11/12/20 14:01 DC 11/12/20 14:27 Iohexol (Omnipaque 350 Mg/ml) 100 ml 1X ONCE IV 11/12/20 15:30 11/12/20 15:32 DC 11/12/20 15:49 Sodium Chloride 1,000 ml @ 1,000 mls/hr 1X ONCE IV 11/12/20 16:15 11/12/20 17:14 DC 11/12/20 16:56 Enoxaparin Sodium (Lovenox 120mg Syringe) 120 mg 1X ONCE SQ 11/12/20 16:30 11/12/20 16:31 DC 11/12/20 16:58 Levofloxacin/ Dextrose 100 ml @ 100 mls/hr 1X ONCE IV 11/12/20 16:30 11/12/20 17:29 DC 11/12/20 16:57 Sodium Chloride 1,000 ml @ 125 mls/hr Q8H IV 11/12/20 16:45 11/12/20 20:44 DC 11/12/20 16:56 Imaging: Imaging: CXR Impression: 1. No acute cardiopulmonary process. C/A/P CT Impression: Chest CT: 1. Nondiagnostic evaluation of the pulmonary arteries. If persistent clinical concern recommend follow-up or VQ scan. 2. Otherwise, no acute intrathoracic pathology. Abdomen and pelvis CT: 1. 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 Recommend follow-up. 2. Hepatic steatosis. VQ Scan Impression: 1. Low probability for pulmonary embolic disease. 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 Unclear significance of CT findings, will review w/ Dr. Hodge. Real, ADAT. Monitor for loose stools, check stool tests if indicated. 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 She'd like to keep her colonoscopy appointment w/ [facility] for [place]. JOHN PAUL BURDICK Nov 13, 2020 09:26
[2020-11-13] MEDS: INSULIN LISPRO 300 UNITS/3 ML VIAL. SQ SCH ×3 (09:52→17:35)
[2020-11-13] MEDS ORDERED: METOCLOPRAMIDE 10 MG TABLET. PO PRN (10:45)
[2020-11-13 11:00] VITALS: BP 169/78
[2020-11-13] MEDS: PROPRANOLOL ER 60 MG CAP.SA.24H. PO SCH (11:43)
[2020-11-13] MEDS: PANTOPRAZOLE IV PUSH 40 MG VIAL. IVP SCH (11:43)
[2020-11-13] MEDS: VENLAFAXINE 75 MG TABLET. PO SCH ×2 (11:44→21:06)
[2020-11-13] MEDS: INSULIN GLARGINE SYRINGE. SQ SCH ×2 (11:47→21:08)
--- NOTE | 2020-11-13 13:28 | NUR ---
SW following for discharge planning. Spoke with RN and reviewed chart. Pt from home with boyfriend. Pt on room air, COVID negative. Pt on IV Zofran. Discharge plan is home, self-care. Possible discharge home today. No SW needs on discharge. SW available as needed.
[2020-11-13] MEDS: GABAPENTIN 300 MG CAPSULE. PO SCH ×2 (14:26→21:05)
--- NOTE | 2020-11-13 14:37 | PDOC2 ---
ROMANA DONAHUE SHAKE SPLITTER 11/13/20 1437: CARDIAC CONSULT DATE OF CONSULT Date of Consult DATE: 11/13/20 TIME: 14:21 REASON FOR CONSULT Reason for Consult: tachycardia REFERRING PHYSICIAN Referring Physician: Bettye SOURCE Source: Chart review, Patient HISTORY OF PRESENT ILLNESS HISTORY OF PRESENT ILLNESS This is a pleasant 50 yo female admitted for complains of multiple complains. Reports abdominal pain, vomiting and chills. She has been having generalized body aches but denies any flank pain. No recorded fever. She has noted her urine being foul and has had bouts of UTI in the past with renal stones as well with cystoscopic removal. No hematemesis and no diarrhea. No hx of arrhythmia, no chest pain nor SOA. Consult is for tachycardia and this is sinus tachycardia with associated UTI and fever. No hx of CAD nor VTE. She does take propranolol but mainly for migraine without aura. Denies any recreational drug use. Her symptoms have been ongoing in the last several days resulting to insomnia. She was suppose to have a routine colonoscopy on Tuesday next week. PAST MEDICAL HISTORY Cardiovascular: Hyperlipidemia Pulmonary: Other (CALEB with CPAP use) CENTRAL NERVOUS SYSTEM: Migraine, Periperal neuropathy GI: Diverticulosis, GERD Heme/Onc: Cancer (renal tumor and breast CA) Psych: Depression Musculoskeletal: Osteoarthritis Rheumatologic: Fibromyalgia Infectious disease: No pertinent hx ENT: No pertinent hx Renal/: UTI, Other (renal stones) Endocrine: Diabetes (2) Dermatology: No pertinent hx PAST SURGICAL HISTORY Past Surgical History: Mastectomy (right lumpectomy), Hysterectomy, Other (Portacath placement and removal; cystosopy with stone removal; right partial nephrectomy) FAMILY HISTORY Family History noncontributory to CV SOCIAL HISTORY Smoke: No ALCOHOL: none Drugs: None Lives: Alone CURRENT MEDICATIONS CURRENT MEDICATIONS Current Medications Medications (Trade) Dose Ordered Sig/William Route PRN Reason Start Time Stop Time Status Last Admin Dose Admin Iohexol (Omnipaque 350 Mg/ml) 100 ml 1X ONCE IV 11/12/20 15:30 11/12/20 15:32 DC 11/12/20 15:49 Sodium Chloride 1,000 ml @ 1,000 mls/hr 1X ONCE IV 11/12/20 16:15 11/12/20 17:14 DC 11/12/20 16:56 Enoxaparin Sodium (Lovenox 120mg Syringe) 120 mg 1X ONCE SQ 11/12/20 16:30 11/12/20 16:31 DC 11/12/20 16:58 Levofloxacin/ Dextrose 100 ml @ 100 mls/hr 1X ONCE IV 11/12/20 16:30 11/12/20 17:29 DC 11/12/20 16:57 Sodium Chloride 1,000 ml @ 125 mls/hr Q8H IV 11/12/20 16:45 11/12/20 20:44 DC 11/12/20 16:56 Insulin Human Lispro (HumaLOG) 0-9 UNITS TIDWMEALS SQ 11/13/20 08:00 11/13/20 09:52 Enoxaparin Sodium (Lovenox 60mg Syringe) 60 mg Q12HR SQ 11/13/20 09:00 11/13/20 09:49 Pantoprazole Sodium (PROTONIX VIAL for IV PUSH) 40 mg DAILYAC IVP 11/13/20 08:15 11/13/20 11:43 Propranolol HCl (Inderal La) 120 mg DAILY PO 11/13/20 11:00 11/13/20 11:43 Venlafaxine HCl (Effexor) 150 mg BID PO 11/13/20 11:00 11/13/20 11:44 Insulin Glargine (Lantus Syringe) 20 unit BID SQ 11/13/20 11:00 11/13/20 11:47 ALLERGIES ALLERGIES: Coded Allergies: mushroom (Verified Allergy, Severe, RESPIRATORY PROBLEM (SOB ETC.), 04/04/19) Penicillins (Verified Allergy, Intermediate, ITCH, 04/04/19) acetaminophen (Verified Allergy, Intermediate, 04/04/19) ROS Review of System 14 point ROS evlauated with pertinent positives noted per HPI PHYSICAL EXAM General: Alert, Oriented X3, Cooperative, No acute distress HEENT: Atraumatic, Mucous membr. moist/pink Lungs: Clear to auscultation, Normal air movement Heart: Regular rate (SR/ST), Normal S1, Normal S2, No murmurs Abdomen: Soft, No tenderness, Other (obese) Extremities: No cyanosis, No edema Skin: No breakdown, No significant lesion Neuro: Normal speech, Sensation intact Psych/Mental Status: Mental status NL, Mood NL MUSCULOSKELETAL: Full range of motion without pain VITALS/I&O VITALS/I&O: Vital Signs Date Time Temp Pulse Resp B/P (MAP) Pulse Ox O2 Delivery O2 Flow Rate FiO2 11/13/20 11:43 110 169/78 11/13/20 11:00 97.5 18 98 Room Air 97.5 I & O 11/12/20 11/12/20 11/13/20 15:00 23:00 07:00 Intake Total 2100 ml Balance 2100 ml LABS Lab: Laboratory Tests Test 11/12/20 14:38 11/13/20 06:00 11/13/20 09:02 11/13/20 11:40 Coronavirus (PCR) Not detected (Not Detected) Influenza Type A Antigen Negative (NEGATIVE) Influenza Type B Antigen Negative (NEGATIVE) White Blood Count 4.5 x10^3/uL (4.0-11.0) Red Blood Count 4.14 x10^6/uL (3.50-5.40) Hemoglobin 11.9 g/dL (12.0-15.5) L Hematocrit 35.5 % (36.0-47.0) L Mean Corpuscular Volume 86 fL (79-100) Mean Corpuscular Hemoglobin 29 pg (25-35) Mean Corpuscular Hemoglobin Concent 34 g/dL (31-37) Red Cell Distribution Width 14.2 % (11.5-14.5) Platelet Count 135 x10^3/uL (140-400) L Neutrophils (%) (Auto) 65 % (31-73) Lymphocytes (%) (Auto) 22 % (24-48) L Monocytes (%) (Auto) 10 % (0-9) H Eosinophils (%) (Auto) 3 % (0-3) Basophils (%) (Auto) 1 % (0-3) Neutrophils # (Auto) 2.9 x10^3/uL (1.8-7.7) Lymphocytes # (Auto) 1.0 x10^3/uL (1.0-4.8) Monocytes # (Auto) 0.4 x10^3/uL (0.0-1.1) Eosinophils # (Auto) 0.1 x10^3/uL (0.0-0.7) Basophils # (Auto) 0.0 x10^3/uL (0.0-0.2) Sodium Level 140 mmol/L (136-145) Potassium Level 3.5 mmol/L (3.5-5.1) Chloride Level 101 mmol/L (98-107) Carbon Dioxide Level 28 mmol/L (21-32) Anion Gap 11 (6-14) Blood Urea Nitrogen 15 mg/dL (7-20) Creatinine 0.7 mg/dL (0.6-1.0) Estimated GFR (Cockcroft-Gault) 89.3 BUN/Creatinine Ratio 21 (6-20) H Glucose Level 263 mg/dL (70-99) H Calcium Level 8.6 mg/dL (8.5-10.1) Iron Level 30 ug/dL (50-170) L Total Iron Binding Capacity 293 ug/dL (250-450) Iron Saturation 10 % (15-34) L Total Bilirubin 0.5 mg/dL (0.2-1.0) Aspartate Amino Transferase (AST) 22 U/L (15-37) Alanine Aminotransferase (ALT) 32 U/L (14-59) Alkaline Phosphatase 124 U/L (46-116) H Total Protein 6.7 g/dL (6.4-8.2) Albumin 3.0 g/dL (3.4-5.0) L Albumin/Globulin Ratio 0.8 (1.0-1.7) L Vitamin B12 Level 269 pg/mL (247-911) Glucose (Fingerstick) 279 mg/dL (70-99) H 257 mg/dL (70-99) H Laboratory Tests 11/13/20 06:00 Laboratory Tests 11/13/20 06:00 ASSESSMENT/PLAN ASSESSMENT/PLAN 1. Abdominal pain and vomiting: CT negative so far for acute issues. Better. GI following 2. Reactive sinus tachycardia with associated fever and UTI. No acute cardiac issues. Covid-19 negative 3. UTI/fever with hx of uretererolithiasis: per PCP 4. DM2: BG uncontrolled, per PCP 5. Hx of migraine hence she takes propranolol 6. Morbid obesity 7. Hx of partial right nephrectomy and breast CA with right lumpectomy 8. HLP: on home statin Recommendations 1. Push fluids. Antibiotics on going 2. Continue propranolol for her migraine. Treat extracardiac issues. No further cardiac testing warranted. Pls call if any questions CALVIN YBARRA MD 11/13/20 6465: CARDIAC CONSULT ASSESSMENT/PLAN ASSESSMENT/PLAN Patient seen and examined. Agree with SIGNAL FITTER's assessment and plan. Sinus tachycardia physiologic/reactive No other significant arrhythmias noted Agree with intravenous hydration Continue treatment of UTI per IM Continue home medication propranolol Thank you for your consultation ROMANA DONAHUE APRN Nov 13, 2020 14:37 CALVIN YBARRA MD Nov 13, 2020 17:41
[2020-11-13 15:00] VITALS: BP 166/77
[2020-11-13] MEDS: HYDROcodone/APAP 5/325MG 1 TAB TABLET PO PRN ×2 (15:46→21:06)
[2020-11-13 19:00] VITALS: BP 135/82
[2020-11-13 23:36] VITALS: BP 150/84
[2020-11-14 03:00] VITALS: BP 131/80
[2020-11-14 04:20] LABS: BASO % 1 % (0-3); EOS # 0.3 x10^3/uL (0.0-0.7); EOS % 5 % (0-3); HEMATOCRIT 34.5 % (36.0-47.0); HEMOGLOBIN 11.2 g/dL (12.0-15.5); LYMPH # 1.6 x10^3/uL (1.0-4.8); LYMPH % 29 % (24-48); MEAN CORPUSCULAR HEMOGLOBIN 28 pg (25-35); MEAN CORPUSCULAR HGB CONC 33 g/dL (31-37); MEAN CORPUSCULAR VOLUME 87 fL (79-100); MONO # 0.5 x10^3/uL (0.0-1.1); MONO % 9 % (0-9); NEUT # 3.2 x10^3/uL (1.8-7.7); NEUT % 57 % (31-73); PLATELET COUNT 149 x10^3/uL (140-400); RED BLOOD COUNT 3.99 x10^6/uL (3.50-5.40); RED CELL DISTRIBUTION WIDTH 14.3 % (11.5-14.5); WHITE BLOOD COUNT 5.6 x10^3/uL (4.0-11.0)
[2020-11-14 05:10] LABS: CALCIUM 8.7 mg/dL (8.5-10.1); CREATININE 0.6 mg/dL (0.6-1.0); GFR 106.7; MAGNESIUM 1.7 mg/dL (1.8-2.4); PHOSPHORUS 3.6 mg/dL (2.6-4.7); POTASSIUM 3.5 mmol/L (3.5-5.1)
[2020-11-14 07:00] VITALS: BP 133/74
[2020-11-14] MEDS: PANTOPRAZOLE IV PUSH 40 MG VIAL. IVP SCH (08:27)
[2020-11-14] MEDS: PROPRANOLOL ER 60 MG CAP.SA.24H. PO SCH (08:28)
[2020-11-14] MEDS: VENLAFAXINE 75 MG TABLET. PO SCH (08:28)
[2020-11-14] MEDS: GABAPENTIN 300 MG CAPSULE. PO SCH ×2 (08:28→13:58)
[2020-11-14] MEDS: INSULIN LISPRO 300 UNITS/3 ML VIAL. SQ SCH ×2 (08:47→12:02)
[2020-11-14] MEDS: INSULIN GLARGINE SYRINGE. SQ SCH (08:47)
[2020-11-14 11:00] VITALS: BP 141/84
--- NOTE | 2020-11-14 11:46 | PDOC ---
Date of Service: DATE: 11/14/20 TIME: 11:41 Subjective: Subjective: "Oh I'm annoyed but that's okay." Concerned w/ clear liquid diet - too much sugar w/ juice and jello, also was not given hot water for broth and/or tea. Headache. Bodyaches better, no n/v, no stools. Objective: Vital Signs: Vital Signs Date Time Temp Pulse Resp B/P (MAP) Pulse Ox O2 Delivery O2 Flow Rate FiO2 11/14/20 11:00 97.0 89 20 141/84 (103) 95 Room Air 97.0 Labs: Laboratory Tests Test 11/13/20 17:13 11/13/20 20:06 11/14/20 04:00 11/14/20 07:00 Glucose (Fingerstick) 231 mg/dL 191 mg/dL 195 mg/dL White Blood Count 5.6 x10^3/uL Red Blood Count 3.99 x10^6/uL Hemoglobin 11.2 g/dL Hematocrit 34.5 % Mean Corpuscular Volume 87 fL Mean Corpuscular Hemoglobin 28 pg Mean Corpuscular Hemoglobin Concent 33 g/dL Red Cell Distribution Width 14.3 % Platelet Count 149 x10^3/uL Neutrophils (%) (Auto) 57 % Lymphocytes (%) (Auto) 29 % Monocytes (%) (Auto) 9 % Eosinophils (%) (Auto) 5 % Basophils (%) (Auto) 1 % Neutrophils # (Auto) 3.2 x10^3/uL Lymphocytes # (Auto) 1.6 x10^3/uL Monocytes # (Auto) 0.5 x10^3/uL Eosinophils # (Auto) 0.3 x10^3/uL Basophils # (Auto) 0.0 x10^3/uL Sodium Level 144 mmol/L Potassium Level 3.5 mmol/L Chloride Level 105 mmol/L Carbon Dioxide Level 28 mmol/L Anion Gap 11 Blood Urea Nitrogen 11 mg/dL Creatinine 0.6 mg/dL Estimated GFR (Cockcroft-Gault) 106.7 Glucose Level 212 mg/dL Calcium Level 8.7 mg/dL Phosphorus Level 3.6 mg/dL Magnesium Level 1.7 mg/dL Test 11/14/20 10:49 Glucose (Fingerstick) 256 mg/dL PE: GEN: NAD LUNGS: CTAB HEART: RRR ABD: NABS, S/ND/NT NEURO/PSYCH: A & O 3 A/P: N/v, loose stools, bodyaches - resolving CHRISTOPHE Abnormal CT - "increased irma mesentery and small mesenteric lymph nodes, 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 Discussed her dietary concerns w/ nurse. ADAT and follow-up for planned colonoscopy as outpt w/ [facility] on - might consider EGD too if possible. 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 Continue iron. Justicifation of Admission Dx: Justifications for Admission: Justification of Admission Dx: Yes JOHN PAUL BURDICK Nov 14, 2020 11:46
[2020-11-14] MEDS ORDERED: METO10TA PO (13:15)
--- NOTE | 2020-11-14 13:16 | DISCH ---
DISCHARGE INSTRUCTIONS Condition on Discharge Condition on Discharge: Stable Activity After Discharge Activity Instructions for Disc: Activity as tolerated Driving Instructions after Dis: Do not drive today Diet after Discharge Diet after Discharge: Regular, Diabetic No Calorie Level Wound Incision Care Wound/Incision Care: Other, see below Contacting the DRShante after DC Call your doctor for: If your condition worsens Follow-Up Follow up with: PCP within 2 weeks of discharge Follow Up With: Gastroenterology for your colonoscopy next week SMITA GRANADOS MD Nov 14, 2020 13:16
[2020-11-14 15:00] VITALS: BP 140/68
--- NOTE | 2020-11-14 15:34 | NUR ---
SW following for discharge planning. Spoke with RN and reviewed chart. Pt to discharge home today, self-care. No further SW needs at this time.
--- NOTE | 2020-11-14 16:55 | NUR ---
Discharge Note: TRESA PAYAN Discharge instructions and discharge home medications reviewed with Patient and a copy given. All questions have been answered and understanding verbalized. The following instructions and handouts were given: f/u with PCP within one week. f/u with [facility] for colonoscopy. Discontinued lines and drains: Peripheral IV intact. Patient discharged to Home or Self Care with Family Member via [facility].
[2020-11-15] MEDS ORDERED: PANTOPRAZOLE 40 MG TABLET.DR. PO SCH (07:30)
--- NOTE | 2020-11-16 10:49 | PDOC3 ---
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 She also has some generalized muscle aches. She also said that she got the Covid vaccine recently. She describes her abdominal pain as epigastric and nonradiating eating without any alleviating factors. Denies any chest pain, diarrhea. When arrived in the ED she did have some tachycardia but is oxygenating well on room air. She did endorse some fevers at home. ED course: 50-year-old female presenting with nausea vomiting abdominal pain with shortness of breath. On arrival the patient is tachycardic at 130 with increased respiratory rate. She is a low-grade temperature of 99.5. IV established. IV fluids initiated. Labs obtained. CBC shows a normal white blood cell count. Hemoglobin within normal limits. Chemistry panel shows elevated glucose of 250. Otherwise troponin and proBNP within normal limits. Not . Urine analysis shows positive nitrites with glucose urea and elevated specific gravity. IV Levaquin given given the patient's penicillin allergy. Influenza testing is negative. CT angiogram unfortunately was nondiagnostic so I ordered a VQ scan. In the interim we will cover with 1 dose of Lovenox to cover for potential PE. 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 We will admit the patient to the hospitalist team for further evaluation treatment and care. I have placed a consult for GI and cardiology. Patient was tolerating diet by the time of her discharge without any complaints. She improved with reglan. She will need strict management for her DM because her HbA1c was 11.2 Disposition: Disposition/Orders: D/C to Home Activity: Activity: Resume previous activity Diet: Diet: Consistent Carbohydrate Medications: Home Meds Active Scripts Metoclopramide Hcl (METOCLOPRAMIDE HCL) 10 Mg Tablet, 10 MG PO PRN Q8HRS PRN for NAUSEA/VOMITING for 30 Days, #60 TAB Prov:SMITA GRANADOS MD 11/14/20 Reported Medications Anastrozole (ARIMIDEX) 1 Mg Tablet, 1 MG PO DAILY for breast cancer 06/21/19 Amitriptyline Hcl (AMITRIPTYLINE HCL) 75 Mg Tablet, 75 MG PO HS for sleep 06/21/19 Gabapentin (GABAPENTIN) 600 Mg Tablet, 600 MG PO QHS for NEUROGENIC PAIN, TAB 01/05/19 Venlafaxine Hcl (VENLAFAXINE HCL ER) 75 Mg Cap.er.24h, 75 MG PO BID for hot flashes 12/19/18 Metformin Hcl (METFORMIN HCL) 500 Mg Tablet, 500 MG PO BIDWMEALS for ANTI- DIABETIC 11/20/18 Montelukast Sodium (MONTELUKAST SODIUM TABLET ) 10 Mg Tablet, 1 TAB PO DAILY for allergy 11/20/18 Glimepiride (GLIMEPIRIDE) 1 Mg Tablet, 1 TAB PO BID for blood sugar 11/20/18 Cetirizine Hcl (CETIRIZINE HCL) 10 Mg Tablet, 1 TAB PO DAILY for allergy 11/20/18 Ranitidine Hcl (RANITIDINE HCL) 150 Mg Tablet, 1 TAB PO DAILY for gerd 11/20/18 Propranolol Hcl (PROPRANOLOL HCL) 80 Mg Cap.sa.24h, 120 MG PO DAILY for migr anes, CAP.SR 11/20/18 Gabapentin (GABAPENTIN) 300 Mg Capsule, 300 MG PO Q AM for NEUROGENIC PAIN, CAP 11/20/18 Discontinued Reported Medications Tramadol Hcl (TRAMADOL HCL) 50 Mg Tablet, 50 MG PO Q6HRS PRN for PAIN, TAB 11/20/18 Lovastatin (LOVASTATIN) 40 Mg Tablet, 1 TAB PO QHS for cholesterol 11/20/18 Discontinued Scripts Oxycodone Hcl (OXYCODONE HCL) 5 Mg Capsule, 5 MG PO PRN Q6HRS PRN for PAIN for 3 Days, #10 TAB 0 Refills Prov:BETTY HAN APRN 11/05/19 Scheduled Amitriptyline Hcl (Amitriptyline Hcl), 75 MG PO HS, (Reported) Anastrozole (Arimidex), 1 MG PO DAILY, (Reported) Cetirizine Hcl (Cetirizine Hcl), 1 TAB PO DAILY, (Reported) Gabapentin (Gabapentin), 300 MG PO Q AM, (Reported) Gabapentin (Gabapentin), 600 MG PO QHS, (Reported) Glimepiride (Glimepiride), 1 TAB PO BID, (Reported) Metformin Hcl (Metformin Hcl), 500 MG PO BIDWMEALS, (Reported) Montelukast Sodium (Montelukast Sodium Tablet ), 1 TAB PO DAILY, (Reported) Propranolol Hcl (Propranolol Hcl), 120 MG PO DAILY, (Reported) Ranitidine Hcl (Ranitidine Hcl), 1 TAB PO DAILY, (Reported) Venlafaxine Hcl (Venlafaxine Hcl Er), 75 MG PO BID, (Reported) Scheduled PRN Metoclopramide Hcl (Metoclopramide Hcl), 10 MG PO PRN Q8HRS PRN for NAUSEA/VOMITING Discontinued Medications Lovastatin (Lovastatin), 1 TAB PO QHS, (Reported) Oxycodone Hcl (Oxycodone Hcl), 5 MG PO PRN Q6HRS PRN for PAIN Tramadol Hcl (Tramadol Hcl), 50 MG PO Q6HRS PRN for PAIN, (Reported) Total Time: Total Time: Total time spent was 45 minutes in preparing scripts, discharge planning with SW and RN, and preparing this discharge summary. Patient seen and examined on day of discharge. Justicifation of Admission Dx: Justifications for Admission: Justification of Admission Dx: Yes SMITA GRANADOS MD Nov 16, 2020 10:49
== END 2020-11-14 16:55 | disposition home or self-care (01) ==
LOC: ER 11:06 → INTOOBSV 17:59 → ED HOLD 17:59 → 6 SOUTH 19:54
PROVIDERS: ADMIT Family Medicine; ATTEND Family Medicine
DX: R11.2 Nausea with vomiting, unspecified (principal); Z20.822 Contact with and (suspected) exposure to COVID-19; K65.4 Sclerosing mesenteritis; D63.8 Anemia in other chronic diseases classified elsewhere; I10 Essential (primary) hypertension; D69.6 Thrombocytopenia, unspecified; C64.9 Malignant neoplasm of unspecified kidney, except renal pelvis; E11.65 Type 2 diabetes mellitus with hyperglycemia; R00.0 Tachycardia, unspecified; K57.90 Diverticulosis of intestine, part unspecified, without perforation or abscess without bleeding; K21.9 Gastro-esophageal reflux disease without esophagitis; E66.01 Morbid (severe) obesity due to excess calories; E78.5 Hyperlipidemia, unspecified; F32.9 Major depressive disorder, single episode, unspecified; G43.009 Migraine without aura, not intractable, without status migrainosus; G47.00 Insomnia, unspecified; G47.33 Obstructive sleep apnea (adult) (pediatric); K58.9 Irritable bowel syndrome, unspecified; K76.0 Fatty (change of) liver, not elsewhere classified; M79.7 Fibromyalgia; N20.0 Calculus of kidney; M19.90 Unspecified osteoarthritis, unspecified site; N39.0 Urinary tract infection, site not specified; Z85.3 Personal history of malignant neoplasm of breast; Z85.528 Personal history of other malignant neoplasm of kidney; Z87.440 Personal history of urinary (tract) infections; Z90.5 Acquired absence of kidney; Z90.710 Acquired absence of both cervix and uterus; Z87.891 Personal history of nicotine dependence; Z87.442 Personal history of urinary calculi; Z68.45 Body mass index [BMI] 70 or greater, adult; Z79.84 Long term (current) use of oral hypoglycemic drugs; Z98.890 Other specified postprocedural states; Z79.899 Other long term (current) drug therapy
CPT/HCPCS: 36415; 71045; 71275; 74177; 78580; 80048; 80053; 81001; 82607; 82962; 83036; 83540; 83550; 83690; 83735; 83880; 84100; 84443; 84484; 84703; 85007; 85025; 87077; 87086; 87186; 87804; 93005; 96361; 96365; 96372; 96375; 96376; 99285; A9540; C9113; G0378; J1170; J1650; J1815; J1956; J2405; J7030; Q9967; U0003; G0379

== ENCOUNTER → 2020-11-20 | Outpatient (CLI) | payer BC ==
[2020-11-14 15:00] VITALS: BP 140/68
[~2020-11-20] MED LIST changes: +METO10TA PO
--- NOTE | 2020-11-20 12:27 | RAD ---
Examination: Bilateral digital diagnostic mammogram. COMPARISON: Bilateral screening mammogram of 09/06/2018, right post needle localization procedure mammo gram of 11/20/2018 FINDINGS: Scattered fibroglandular densities. Negative left mammogram. The S-shaped biopsy marker, localizing needle and mass with distortion and associated punctate calcif ications are now absent from the upper outer quadrant right breast. A surgical scar is marked at the skin surface with a scar marker. No developing mass, suspicious calcification or architectural distor tion identified in either breast. IMPRESSION: Benign postsurgical changes in the posterior upper-outer right breast. No evidence of malignancy in either breast. Recommend return to routine screening in one year. She may benefit from 3D mammography and was instructed to inquire about insurance coverage for this s ervice in anticipation of her next exam. BI-RADS Category 2 Benign findings Patient entered into a reminder system with targeted due date for next mammogram. Electronically signed by: Mary Juan MD (11/20/2020 12:25 PM) [id number]
== END ==
LOC: MAMMO 08:52
PROVIDERS: ATTEND Registered Nurse
DX: R92.8 Other abnormal and inconclusive findings on diagnostic imaging of breast (principal); Z85.3 Personal history of malignant neoplasm of breast
CPT/HCPCS: 77066

== ENCOUNTER 2021-05-21 17:50 | Emergency (ER) | payer BC ==
[~2021-05-21] VITALS: Ht 162.6 cm; Wt 115.7 kg
[2021-05-21 18:10] VITALS: BP 148/80
--- NOTE | 2021-05-21 18:24 | PHYS DOC ---
Past Medical History Past Medical History: Cancer, Depression, Diabetes-Type II, Fibromyalgia, GERD, Kidney Stone, Uterine Fibroids, Other Additional Past Medical Histor: HYPERLIPIDEMIA,HSV2,RENAL CELL CANCER, SLEEP APNEA, CRONIC FATGUE, Past Surgical History: Other Additional Past Surgical Histo: PARTIAL KEDNEY REMOVAL.RIGHT LEG BIOPSY,BILATERAL SHOULDER.KIDNEY STONE Smoking Status: Former Smoker Alcohol Use: None Drug Use: None General Adult EDM: Chief Complaint: FOOT INJURY PAIN HPI: HPI: Patient is a 51 year old female past medical history diabetes with diabetic neuropathy bilateral lower extremities presents for evaluation after right foot injury. On Tuesday patient dropped canned food on her right foot. Patient has some swelling on the anterior portion of the foot and along second third and fourth toes. There is some overlying ecchymosis there is no deformity noted. Patient states she has decreased sensation in bilateral lower extremities at baseline but states her right foot primarily plantar surface around her toes feels more numb than normal. Patient is able to ambulate with a steady gait. Patient is seeing a physical therapist for previous hip injury. She states her physical therapist recommended she be evaluated for her foot injury. Review of Systems: Review of Systems: Review of systems: Constitutional symptoms- No fever, no chills. Eyes- No Discharge, No Visual Loss Respiratory symptoms- No shortness of breath, No wheezing, No Dyspnea on Exertion Cardiovascular Systems; No chest pain, No Palpitations, No syncope Gastrointestinal symptoms: NO abdominal pain, no nausea, no vomiting or diarr hea. Genitourinary symptoms: No dysuria. Musculoskeletal symptoms: No back pain No extremity pain. Positive foot swelling NEUROLOGICAL Symptoms: No headache, no generalized weakness; No focal Weakness Skin: No rash. Positive ecchymosis Heart Score: C/O Chest Pain: N/A Risk Factors: Risk Factors: DM, Current or recent (<one month) smoker, HTN, HLP, family history of CAD, obesity. Risk Scores: Score 0 - 3: 2.5% MACE over next 6 weeks - Discharge Home Score 4 - 6: 20.3% MACE over next 6 weeks - Admit for Clinical Observation Score 7 - 10: 72.7% MACE over next 6 weeks - Early Invasive Strategies Allergies: Allergies: Allergies Coded Allergies Type Severity Reaction Last Updated Verified mushroom Allergy Severe RESPIRATORY PROBLEM (SOB ETC.) 04/04/19 Yes Penicillins Allergy Intermediate ITCH 04/04/19 Yes acetaminophen Allergy Intermediate 04/04/19 Yes Physical Exam: PE: General: alert, no acute distress. Skin: warm, dry and intact, no erythema, no rash. HENT: bilateral external ears normal, oropharynx moist, nose normal. Head:: Normocephalic, atraumatic. Neck: Trachea midline. Eyes: EOMI, Normal conjunctiva, No drainage CARDIOVASCULAR: Regular rate and rhythm RESPIRATORY: No respiratory distress Back: Full range of motion. MUSCULOSKELETAL: Full range of motion of bilateral upper and lower extremities. GASTROINTESTINAL: Abdomen soft without rebound or guarding. NEUROLOGICAL: Alert and noted to person, place and time. No neurological deficits observed Psychiatric: Cooperative. Normal judgment Right foot swelling ecchymosis top of right foot along second third and fourth digit. No deformities noted of right foot or toes EKG: EKG: [] Radiology/Procedures: Radiology/Procedures: [] Impression: xray wet read no acute fracture Course & Med Decision Making: Course & Med Decision Making Pertinent Labs and Imaging studies reviewed. (See chart for details) [] Dragon Disclaimer: Dragbi Disclaimer: This electronic medical record was generated, in whole or in part, using a voice recognition dictation system. Departure Departure Impression: Primary Impression: Contusion of foot, right Disposition: HOME / SELF CARE / HOMELESS Condition: STABLE Referrals: CHON PRECIADO APRN (PCP) Patient Instructions: Contusion CHRISTOPHER WATERS I DO May 21, 2021 18:24
--- NOTE | 2021-05-21 19:49 | RAD ---
XR FOOT_RIGHT 3 VIEWS DATE: 05/21/2021 6:40 PM INDICATION: foot injury COMPARISON: None. FINDINGS: Bones: There is no evidence of acute fracture or dislocation. Joints: The joint spaces are normal. Miscellaneous: None. IMPRESSION: No evidence of acute fracture. Electronically signed by: Scott Carr MD (05/21/2021 7:46 PM) ANNABEL
== END 2021-05-21 18:53 | disposition home or self-care (01) ==
LOC: ER 17:50
DX: S90.31XA Contusion of right foot, initial encounter (principal); E11.40 Type 2 diabetes mellitus with diabetic neuropathy, unspecified; M79.7 Fibromyalgia; K21.9 Gastro-esophageal reflux disease without esophagitis; E78.5 Hyperlipidemia, unspecified; Z87.442 Personal history of urinary calculi; Z91.018 Allergy to other foods; Z88.0 Allergy status to penicillin; Z88.6 Allergy status to analgesic agent; W20.8XXA Other cause of strike by thrown, projected or falling object, initial encounter; Y93.89 Activity, other specified; Y92.89 Other specified places as the place of occurrence of the external cause; Y99.8 Other external cause status
CPT/HCPCS: 73630; 99283

== ENCOUNTER → 2022-01-06 | Outpatient (CLI) | payer BC ==
--- NOTE | 2022-01-06 14:51 | RAD ---
DATE: 01/06/2022 EXAM: MG DIGITAL BILAT DIAGNOSTIC MAMMO WITH TANO, US BREAST LT HISTORY: 51-year-old woman with history of breast cancer in 2019 posterior lumpectomy, chemotherapy a nd radiation. Presenting for routine annual exam. COMPARISON: 11/20/2020 and 10/06/2018 Breast Density: SCATTERED The breast parenchyma shows scattered fibroglandular densities. Breast pare nchyma level B. FINDINGS: There are stable posttreatment changes in the upper outer posterior right breast. There is an asymmetry in the retroareolar left breast on MLO view that changes configuration on spot compressi on. No suspicious calcifications or suspicious architectural distortion in either breast. Ultrasound of the retroareolar left breast was performed. There were areas of dense tissue but no oliver picious mass or cyst. Normal lymph nodes in the left axilla. IMPRESSION: 1. Stable treatment-related changes in the right breast. 2. An asymmetry seen in the retroareolar left breast on MLO view does not definitively persist on spo t compression and is not seen on ultrasound. This is likely due to superimposed fibroglandular tissue on the MLO view. Given the patient's history of cancer, recommend 6 month follow-up left breast mamm ogram and possible ultrasound to ensure stability. This was discussed in person by Dr. Brooks with the patient at the time of the exam. BI-RADS CATEGORY: 3 PROBABLY BENIGN FINDING(S)-SHORT INTERVAL FOLLOW-UP SUGGESTED RECOMMENDED FOLLOW-UP: 6M 6 MONTH FOLLOW-UP PQRS compliance statement: Patient information was entered into a reminder system with a target due d ate for the next mammogram. Mammography is a sensitive method for finding small breast cancers, but it does not detect them all a nd is not a substitute for careful clinical examination. A negative mammogram does not negate a clin ically suspicious finding and should not result in delay in biopsying a clinically suspicious abnorma lity. "Our facility is accredited by the [employer] Mammography Program." Electronically signed by: Robyn Brooks MD (01/06/2022 2:48 PM) [id number]
== END ==
LOC: MAMMO 08:28
PROVIDERS: ATTEND Internal Medicine Hematology & Oncology
DX: N64.89 Other specified disorders of breast (principal); Z85.3 Personal history of malignant neoplasm of breast
CPT/HCPCS: 76641; 77066; G0279; 77062